=== PATIENT | male | born 1935 | race Caucasian/White ===

== ENCOUNTER 2017-07-28 03:35 | Inpatient (IN) | payer OTHER ==
[2017-07-28 03:56] VITALS: BMI 15.5
--- NOTE | 2017-07-28 04:04 | PDOC ---
History of Present Illness - General Chief Complaint: Laceration Stated Complaint: FALL Time Seen by Provider: 07/28/17 04:03 Past History - Past Medical History Allergies/Adverse Reactions: Allergies Allergy/AdvReac Type Severity Reaction Status Date / Time No Known Allergies Allergy Verified 07/28/17 03:47 Home Medications: Ambulatory Orders Acetaminophen [Tylenol -] 650 mg GT Q6H PRN 07/28/17 Albuterol 0.083% Nebulizer Kita [Ventolin 0.083% Nebulizer Soln -] 1 neb NEB Q6H 07/28/17 Chlorhexidine Gluconate 15 ml MM BID 07/28/17 Docusate Liquid [Colace Liquid -] 300 mg GT HS 07/28/17 Famotidine [Pepcid -] 20 mg GT AM 07/28/17 Hypromellose 0.5% Opth Soln [Artificial Tears] 1 drop OU Q6H 07/28/17 Ipratropium 0.02% Nebulizer [Atrovent] 1 neb NEB Q6H 07/28/17 Levofloxacin 750 mg GT DAILY 07/28/17 Morphine *Immediate Release* [Msir -] 15 mg GT BID 07/28/17 Oxycodone HCl 5 mg GT Q4H PRN 07/28/17 Prednisone 5 mg GT DAILY 07/28/17 Sennosides [Senna] 17.2 mg GT DAILY 07/28/17 Trazodone HCl 100 mg GT HS 07/28/17 - Suicide/Smoking/Psychosocial Hx Smoking History: Unknown if ever smoked Information on smoking cessation initiated: No Hx Alcohol Use: No Drug/Substance Use Hx: No Review of Systems - Review of Systems Able to Perform ROS?: No (pt has a trach collar) Comments:: 07/28/17 04:58 COPD, GERD, bronchitis, insomnia is his PMHx as per [facility] notes *Physical Exam - Vital Signs Last Vital Signs Temp Pulse Resp BP Pulse Ox 69 14 161/78 100 07/28/17 03:47 07/28/17 03:47 07/28/17 03:47 07/28/17 03:47 ED Treatment Course - LABORATORY CBC & Chemistry Diagram: 07/28/17 04:40 07/28/17 04:40 Medical Decision Making - Medical Decision Making 07/28/17 04:55 Patient Name: GALLO HIDALGO THIS IS A PRELIMINARY REPORT FROM [facility] DATE OF SERVICE: 2017-07-28 04:10:28 IMAGES: 161 EXAM: CT HEAD HISTORY: Patient fell COMPARISON: None. FINDINGS: Involutional changes. No hemorrhage. No mass. No visible infarct. Osseous structures are intact 07/28/17 05:02 Patient Name: GALLO HIDALGO THIS IS A PRELIMINARY REPORT FROM [facility] DATE OF SERVICE: 2017-07-28 04:10:28 IMAGES: 363 EXAM: CT CERVICAL SPINE HISTORY: Patient fell COMPARISON: None. FINDINGS: Negative for cervical fracture. 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 There is a mild retrolisthesis of C3 on C4 and slight widening of the anterior disc space. It is possible that this is chronic but I cannot exclude traumatic retrolisthesis with ligamentous injury. If prior scans can be made available, I can determine if this was present previously. No other malalignment. Tracheostomy tube is noted. Extensive emphysematous changes noted at the lung apices. A portion of a pneumothorax is seen at the right lung apex. Soft tissue emphysema is noted at the cervicothoracic junction anteriorly. THIS DOCUMENT HAS BEEN ELECTRONICALLY SIGNED 07/28/17 05:28 Pt has a small pneumothorax on the right side, seen on the neck XR and the CXR portable. This may be due to barotrauma from the vent or it may be from the fall that he sustained or a popped bleb, as he has COPD and emphysema. Pt has bilateral pneumonia. He is on levaquin at the [facility], but his WBC went up from 17 previously to 22 today. I will culture him and then start zosyn. 07/28/17 05:41 Pt has shallow cuts to forehead and face. Nothing to suture or glue. I placed bacitracin ointment on the cuts. 07/28/17 05:52 Pt will be admitted to the hospitalist, as PD is Nehemias; also I spoke to Dr. Phelps and he wants patient admitted to the hospitalist. 07/28/17 06:54 Dr. Cuello aware of the patient. *DC/Admit/Observation/Transfer Diagnosis at time of Disposition: Fall from bed, Retrolisthesis of vertebrae, Head injury, Pneumonia, Sepsis, Pneumothorax, Ventilator barotrauma - Discharge Dispostion Condition at time of disposition: Poor Admit: Yes - Referrals - Patient Instructions - Post Discharge Activity
[2017-07-28 04:56] LABS: BASO % 0.4 % (0-2.0); EOS % 1.7 % (0-4.5); MCHC 32.7 g/dl (32.0-35.9); MEAN CELL VOLUME 94.8 fl (80-96); MEAN PLT VOLUME 7.8 fl (7.5-11.1); NEUT % 79.4 % (42.8-82.8); PLATELET COUNT 569 K/MM3 (134-434); RDW 13.4 % (11.9-15.9)
[2017-07-28] MEDS ORDERED: BACITRACIN 15 GM TUBE TOPICAL OINTMENT TP SCH (05:15)
[2017-07-28 05:17] LABS: INR 1.19 (0.82-1.09); PROTHROMBIN TIME (PATIENT) 13.4 SEC (9.98-11.88)
[2017-07-28 05:25] LABS: ALBUMIN 2.5 g/dl (3.4-5.0); ANION GAP 5 (8-16); BILIRUBIN,TOTAL 0.3 mg/dL (0.2-1.0); CALCIUM 8.7 mg/dL (8.5-10.1); CO2 34 mmol/L (21-32); CREATININE 1.5 mg/dL (0.7-1.3); GLUCOSE,RANDOM 150 mg/dL (74-106); SGOT/AST 18 U/L (15-37); SGPT/ALT 12 U/L (12-78); TOT PROT 7.8 g/dl (6.4-8.2)
[2017-07-28 05:26] LABS: ALK PHOS 136 U/L (45-117)
[2017-07-28] MEDS ORDERED: morphine SULFATE 4 MG/ML VIAL ONE (05:51)
[2017-07-28] MEDS ORDERED: BACITRACIN 0.9 GM PACKET TP SCH (05:54)
[2017-07-28] MEDS ORDERED: BACITRACIN 0.9 GM PACKET ONE (05:58)
[2017-07-28] MEDS ORDERED: morphine CARPU-JECT 2 MG/1 ML DISP.SYRIN IVPUSH ONE (05:58)
[2017-07-28] MEDS ORDERED: PIPERACILLIN/TAZOB 3.375 GM 3.375 GM/50 ML BAG IVPB ONE (05:59)
[2017-07-28] MEDS ORDERED: PIPERACILLIN/TAZOB 3.375 GM 50 ML IVPB ONE (06:00)
[2017-07-28 06:45] LABS: URINE APPEARANCE SLCLOUDY; URINE BILIRUBIN NEGATIVE (NEGATIVE); URINE BLOOD 1+ (NEGATIVE); URINE COLOR YELLOW; URINE GLUCOSE (UA) NEGATIVE (NEGATIVE); URINE KETONE NEGATIVE (NEGATIVE); URINE NITRITE NEGATIVE (NEGATIVE); URINE PROTEIN NEGATIVE (NEGATIVE); URINE UROBILINOGEN NEGATIVE mg/dL (0.2-1.0)
[2017-07-28 06:52] LABS: URINE BACTERIA RARE /hpf (NONE SEEN); URINE MUCUS RARE; URINE RBC 19 /hpf (0-3); URINE WBC 1 /hpf (3-5)
--- NOTE | 2017-07-28 08:20 | PDOC ---
*Physical Exam - Vital Signs Last Vital Signs Temp Pulse Resp BP Pulse Ox 98.3 F 101 H 20 107/77 100 07/28/17 07:18 07/28/17 07:18 07/28/17 07:18 07/28/17 07:18 07/28/17 07:18 ED Treatment Course - LABORATORY CBC & Chemistry Diagram: 07/28/17 04:40 07/28/17 04:40 - ADDITIONAL ORDERS Additional order review: Laboratory Results 07/28/17 07/28/17 07/28/17 06:00 05:26 04:40 PT with INR INR Sodium 137 Potassium 5.0 Chloride 98 Carbon Dioxide 34 H Anion Gap 5 L BUN 53 H Creatinine 1.5 H Creat Clearance w eGFR 44.69 Random Glucose 150 H Lactic Acid 1.8 Calcium 8.7 Total Bilirubin 0.3 AST 18 ALT 12 Alkaline Phosphatase 136 H Total Protein 7.8 Albumin 2.5 L Blood Type O POSITIVE Antibody Screen Negative 07/28/17 04:40 PT with INR 13.40 H INR 1.19 H Sodium Potassium Chloride Carbon Dioxide Anion Gap BUN Creatinine Creat Clearance w eGFR Random Glucose Lactic Acid Calcium Total Bilirubin AST ALT Alkaline Phosphatase Total Protein Albumin Blood Type Antibody Screen 07/28/17 04:40 RBC 3.26 L MCV 94.8 MCHC 32.7 RDW 13.4 MPV 7.8 Neutrophils % 79.4 Lymphocytes % 12.0 Monocytes % 6.5 Eosinophils % 1.7 Basophils % 0.4 - Medications Given in the ED: ED Medications Discontinued Medications Generic Name Dose Route Start Last Admin Trade Name Freq PRN Reason Stop Dose Admin Piperacillin/Tazobactam/Dextrose 50 mls @ 100 mls/hr 07/28/17 06:00 07/28/17 06:56 Zosyn 3.375gm Ivpb (Premix) IVPB 07/28/17 06:29 100 mls/hr ONCE ONE Administration Protocol Morphine Sulfate 2 mg 07/28/17 05:58 07/28/17 06:56 Morphine Injection - IVPUSH 07/28/17 05:59 2 mg ONCE ONE Administration Medical Decision Making - Medical Decision Making 07/28/17 08:18 Received signout on this 82y/o M admitted to ICU for fall, ptx on xray ordered for CT for further evaluation. CT chest confirms 10% R ptx with pneumomediastinum. CT c-spine with no fracture, retrolisthesis ? acute v. chronic, c-collar maintained. official hand-off had not been given, so signout given to Dr. Xavier, accepted for admission by Dr. Finn. Dr. Cuello had already been consulted for ICU admission. HD stable/unchanged. En route to ICU. *DC/Admit/Observation/Transfer Diagnosis at time of Disposition: Fall from bed, Retrolisthesis of vertebrae, Head injury, Pneumonia, Sepsis, Pneumothorax, Ventilator barotrauma - Discharge Dispostion Condition at time of disposition: Poor Admit: Yes - Referrals - Patient Instructions - Post Discharge Activity
--- NOTE | 2017-07-28 09:37 | HP ---
CHIEF COMPLAINT: S/P fall at custodial PCP: Dr. Pate HISTORY OF PRESENT ILLNESS: PATIENT UNABLE TO PROVIDE DUE TO MEDICAL CONDITION. ALL INFORMATION OBTAINED FROM [facility] AND PATIENTS SON. 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 s/p fall. According to the [facility] records patients roommate heard him fall and rang the luke immediately. Patient was found on the floor with facial laceration. Vitals were checked and patient was found tachycardic. Patient was then sent over to the ED for evaluation. In the ED patient was found to have a septic picture of leukocytosis, tachycardia and CXR revealing extensive bilateral interstitial lung disease. Patient's son was contacted who reports that patient was recently sent to [facility] from [facility] () after patient was found to have respiratory failure with tracheostomy placed two weeks ago. Patient's son reports that his respiratory status started deteriorating ever since he was diagnosed with TB in [facility] in 2015, for which he was treated for. Otherwise, patients son denies any history of occupational exposure or history of smoking. ER course was notable for: (1) ZOSYN 3.375 (2) Chest X-ray revealing bilateral pneumonia and interstitial lung disease (3) CT HEAD Recent Travel: NO PAST MEDICAL HISTORY: Interstitial lung disease, TB (2016), COPD/EMPHYSEMA, GERD PAST SURGICAL HISTORY: Bilateral Knee replacement, Cataract surgery, Tracheostomy (2 weeks ago), Peg tube placement (1 week ago) Social History: Worked as a salesman Smoking: Patient's son denies Alcohol: Patient's son denies Drugs: Patient's son denies Family History: Non-contributory Allergies: No Known Allergies Allergy (Verified 07/28/17 03:47) HOME MEDICATIONS: Home Medications Medication Instructions Recorded Acetaminophen [Tylenol -] 650 mg GT Q6H PRN 07/28/17 Albuterol 0.083% Nebulizer Kita 1 neb NEB Q6H 07/28/17 [Ventolin 0.083% Nebulizer Soln -] Chlorhexidine Gluconate 15 ml MM BID 07/28/17 Docusate Liquid [Colace Liquid -] 300 mg GT HS 07/28/17 Famotidine [Pepcid -] 20 mg GT AM 07/28/17 Hypromellose 0.5% Opth Soln 1 drop OU Q6H 07/28/17 [Artificial Tears] Ipratropium 0.02% Nebulizer 1 neb NEB Q6H 07/28/17 [Atrovent] Levofloxacin 750 mg GT DAILY 07/28/17 Morphine *Immediate Release* [Msir 15 mg GT BID 07/28/17 -] Oxycodone HCl 5 mg GT Q4H PRN 07/28/17 Prednisone 5 mg GT DAILY 07/28/17 Sennosides [Senna] 17.2 mg GT DAILY 07/28/17 Trazodone HCl 100 mg GT HS 07/28/17 REVIEW OF SYSTEMS Unable to obtain due to patients medical condition PHYSICAL EXAMINATION Vital Signs - 24 hr 07/28/17 07/28/17 07/28/17 03:47 04:05 05:04 Temperature Pulse Rate 69 Pulse Rate [ Right Radial] Respiratory 14 20 22 Rate Blood Pressure 161/78 Blood Pressure [Left Arm] O2 Sat by Pulse 100 100 Oximetry (%) 07/28/17 07/28/17 06:40 07:18 Temperature 98.3 F Pulse Rate Pulse Rate [ 101 H Right Radial] Respiratory 24 20 Rate Blood Pressure Blood Pressure 107/77 [Left Arm] O2 Sat by Pulse 100 Oximetry (%) GENERAL: Lethargic, non-verbal. HEAD: Normal with no signs of trauma. EYES: Pupils equal, round and reactive to light, sclera anicteric, conjunctiva clear. EARS, NOSE, THROAT: (-) hemotympanum (-) kimbrough's sign, (-) [place] eyes, poor dentition. Moist mucous membranes. NECK: No bruits appreciated with no JVD, or masses. LUNGS: Tracheostomy collar in place and ventilated. Scattered Rhonchi throughout lungs anteriorly HEART: Regular rate and rhythm, normal S1 and S2 with 2/6 systolic murmur in the right sternal border ABDOMEN: Soft, (+) Peg tube placement with no erythema or drainage, nontender, not distended, normoactive bowel sounds, no guarding, no rebound, no masses. MUSCULOSKELETAL: Right forearm, wrist, and dorsal hand ecchymosis. Left forearm echymosis UPPER EXTREMITIES: 2+ pulses, warm, well-perfused. No cyanosis. No clubbing. No peripheral edema. LOWER EXTREMITIES: 2+ pulses, warm, well-perfused. No calf tenderness. No peripheral edema. NEUROLOGICAL: Unable to assess due to patients medical condition. No facial droop Laboratory Results - last 24 hr 07/28/17 07/28/17 07/28/17 04:40 04:40 04:40 WBC 22.0 H RBC 3.26 L Hgb 10.1 L Hct 30.9 L MCV 94.8 MCH 31.0 MCHC 32.7 RDW 13.4 Plt Count 569 H MPV 7.8 Neutrophils % 79.4 Lymphocytes % 12.0 Monocytes % 6.5 Eosinophils % 1.7 Basophils % 0.4 PT with INR 13.40 H INR 1.19 H Sodium 137 Potassium 5.0 Chloride 98 Carbon Dioxide 34 H Anion Gap 5 L BUN 53 H Creatinine 1.5 H Creat Clearance w eGFR 44.69 Random Glucose 150 H Lactic Acid Calcium 8.7 Total Bilirubin 0.3 AST 18 ALT 12 Alkaline Phosphatase 136 H Total Protein 7.8 Albumin 2.5 L Urine Color Urine Appearance Urine pH Ur Specific Lyons Urine Protein Urine Glucose (UA) Urine Ketones Urine Blood Urine Nitrite Urine Bilirubin Urine Urobilinogen Urine WBC (Auto) Urine RBC (Auto) Urine Bacteria Urine Mucus Blood Type Antibody Screen 07/28/17 07/28/17 07/28/17 05:26 06:00 06:30 WBC RBC Hgb Hct MCV MCH MCHC RDW Plt Count MPV Neutrophils % Lymphocytes % Monocytes % Eosinophils % Basophils % PT with INR INR Sodium Potassium Chloride Carbon Dioxide Anion Gap BUN Creatinine Creat Clearance w eGFR Random Glucose Lactic Acid 1.8 Calcium Total Bilirubin AST ALT Alkaline Phosphatase Total Protein Albumin Urine Color Yellow Urine Appearance Slcloudy Urine pH 5.0 Ur Specific Lyons 1.015 Urine Protein Negative Urine Glucose (UA) Negative Urine Ketones Negative Urine Blood 1+ H Urine Nitrite Negative Urine Bilirubin Negative Urine Urobilinogen Negative Urine WBC (Auto) 1 Urine RBC (Auto) 19 Urine Bacteria Rare Urine Mucus Rare Blood Type O POSITIVE Antibody Screen Negative IMAGES Chest X-Ray (07/28/17): There are no prior studies for comparison. There appear to be diffuse chronic and acute lung changes with bullous findings, interstitial and alveolar changes, prominent heart, sclerotic knob, tracheostomy tube and small right pneumothorax. A gross rib fracture is not seen. Cervical CT (07/28/17): No acute fracture, compression deformity is seen. Normal relationship of odontoid to anterior arch of C1. Intact odontoid. The predental space is not widened. Developmental fusion of C2, C3. Normal symmetrical articulation of atlantoaxial and occipito atlantal joints. C3-C4. Loss of disc space height posteriorly. Moderate right facet joint arthropathy. Approximately 2 mm retrolisthesis of C3 on C4. Osteoarthritis of the right uncovertebral joint. Right neural foraminal narrowing. C4-C5. Moderate facet joint arthropathy. Osteoarthritis of uncovertebral joints. Bilateral neural foraminaL narrowing. C5-C6. Moderate facet joint arthropathy. Osteoarthritis of uncovertebral joints. Bilateral neural foraminaL narrowing. Normal height of vertebral bodies. The intraspinal contents cannot be adequately evaluated due to the beam hardening artifacts. The airways are patent. No evidence of prevertebral soft tissue swelling. Tracheostomy tube is noted. Pneumomediastinum. Right pneumothorax. Cystic changes are noted in the lungs apices. Soft tissues emphysematous changes are noted. Impression. No acute bony abnormalities are seen Pneumomediastinum. Right pneumothorax. Head CT (07/28/17): No evidence of acute intracranial hemorrhage, edema, midline shift, mass effect, or skull fracture. No CT evidence of acute territorial ischemic changes. ASSESSMENT/PLAN: Patient is an 82 year old male from [facility] who sent over s/p fall and was found Sepsis with Chest X-Ray revealing Pneumothorax/interstitial lung disease. Patient admitted to ICU for further monitoring and management. S/P Fall w/ Small Right Pneumothorax -Possible secondary to emphysema/bullous -Patient currently is ventilated on a trach -Head CT negative -Transferred to ICU -Pneumothorax is small and no medical management necessary at this point -Bacitracin for Lacerations. No stitches required -Neuro Checks Q2H Sepsis Secondary to Possible Ventilated Associated Pneumonia -Chest X-Ray reveals extensive bilateral interstitial lung disease, WBC 22 with previous WBC from [place] of 17 four days ago despite antibiotic use, Tachycardia > 90. 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 Since his diagnosis patient developed respiratory failure which deteriorated in the last month at [facility] in the city. Patient had tracheostomy placed two weeks ago at [facility]. -Continue DuoNeb Q6H -Continue Prednisone 5mg daily -Continue to monitor O2 saturation and maintain >90% -HIV testing ordered due to bilateral interstitial infiltrates seen in chest x- ray CHANTE on Possible CKD -Last creatinine 5 days ago 1.2 and today 1.5 -Likely pre-renal -Urine Electrolytes ordered -Renal/Kidney U/S ordered -IV NS @75mls/hr -Avoid Nephrotoxic medications -B12 and Folate ordered Anemia of Chronic Disease? -Hemoglobin 10.1. Last week 9.4 -Iron work up ordered with Ferritin, TIBC, IRON, Transferrin -Continue to monitor CBC Thrombocytosis likely Secondary to Sepsis -Platelets of 569. Last week 512 -Possible hemoconcentration -Will give IV fluids -Monitor CBC Chronic Pain of Unknown Etiology -Patient currently on Morphine 15mg once -Continue Tylenol 325mg Q4H PRN History of Insomnia and Depression -Continue home medication Trazodone 100mg daily History of Opioid Induced Constipation -Continue home medication Colace 300mg daily -Continue Home medication Senna 2 tabs daily GERD -Continue Ranitidine 150mg daily F/E/N -IV Normal Saline @75mls/hr -Electrolytes wnl -NPO and will introduce tube feeds Prophylaxis -High risk. Heparin 5000 units Q8H for DVT -Ranitidine 150mg daily for GI -Deconditioning: PT to avoid Disposition -Full code -Will require IV ABX and ICU inpatient Visit type - Emergency Visit Emergency Visit: Yes ED Registration Date: 07/28/17 Care time: The patient presented to the Emergency Department on the above date and was hospitalized for further evaluation of their emergent condition. - New Patient This patient is new to me today: Yes Date on this admission: 07/28/17 - Critical Care Critical Care patient: Yes Total Critical Care Time (in minutes): 45 Critical Care Statement: The care of this patient involved high complexity decision making to prevent further life threatening deterioration of the patient 's condition and/or to evaluate & treat vital organ system(s) failure or risk of failure.
[2017-07-28] MEDS ORDERED: morphine SULFATE IMMEDIATE RELEASE 30 MG TAB PO SCH (10:00)
[2017-07-28] MEDS ORDERED: VANCOMYCIN 750 MG in DEXTROSE 5%-WATER - 250 ML IVPB ONE ×2 (10:00→13:00)
[2017-07-28] MEDS ORDERED: RANITIDINE HCL 150 MG/10 ML UNIT-DOSE GT SCH (10:00)
[2017-07-28] MEDS ORDERED: RANITIDINE HCL 150 MG TABLET (FP) PO SCH (10:00)
[2017-07-28] MEDS ORDERED: MUPIROCIN 2% TOPICAL OINTMENT FOR DECOLONIZATION NS SCH ×2 (10:00→22:00)
[2017-07-28] MEDS ORDERED: VANCOMYCIN 750 MG in DEXTROSE 5%-WATER - 250 ML IVPB SCH (10:00)
[2017-07-28] MEDS ORDERED: SENNOSIDES 8.6MG TABLET (FP) PO SCH (10:00)
[2017-07-28] MEDS ORDERED: predniSONE 5 MG TABLET (UD) GT SCH (10:00)
[2017-07-28] MEDS: ALBUTEROL SO4 2.5/IPRATROPIUM 0.5 INH SOL 3 ML VIAL.NEB. NEB SCH ×3 (10:25→18:42)
[2017-07-28] MEDS ORDERED: PNEUMOC 13-VAL CONJ-DIP CRM/PF 0.5 ML DISP.SYRIN IM ONE (10:48)
[2017-07-28 11:21] LABS: MAGNESIUM 2.4 mg/dL (1.8-2.4); PHOSPHOROUS 3.6 mg/dL (2.5-4.9)
[2017-07-28] MEDS ORDERED: PT OWN MED DRAWER 7, Y5N ONE ×3 (12:45→14:38)
[2017-07-28] MEDS ORDERED: SODIUM CHLORIDE 1,000 ML IV SCH (12:45)
--- NOTE | 2017-07-28 12:49 | EKG ---
Test Reason : Blood Pressure : / mmHG Vent. Rate : 111 BPM Atrial Rate : 111 BPM P-R Int : 140 ms QRS Dur : 076 ms QT Int : 318 ms P-R-T Axes : 030 012 071 degrees QTc Int : 432 ms SINUS TACHYCARDIA OTHERWISE NORMAL ECG NO PREVIOUS ECGS AVAILABLE Confirmed by DILMA TAMAYO MD ([id number]) on 07/28/2017 12:49:06 PM Referred By: Confirmed By:DILMA TAMAYO MD
[2017-07-28 12:53] LABS: HIV 1 & 2 AB NEGATIVE; HIV 1 AGp24 NEGATIVE
--- NOTE | 2017-07-28 12:56 | PN ---
Teaching Attending Note Name of Resident: Justine Xavier ATTENDING PHYSICIAN STATEMENT I saw and evaluated the patient. I reviewed the resident's note and discussed the case with the resident. I agree with the resident's findings and plan as documented. SUBJECTIVE: CC: fall from bed HPI: limited. pt was brought from [place] after an unwitnessed fall from bed in [place]. pt was being treated for PNA in [place], most recent labs 4 days ago showed WC of 18K , and pt was started on levaquin 750 mg. also his mental status had changed recently in past few days , lethargic now rather than awake and responds to spanich speaking people. of note , he was dc from [facility] on 07/23/17 after a prolonged admission for acute on chronic resp failure requiring a Trach placement . In ER: he was found to have signs of sepsis , with pneumomediastinum and a small R sided Pneumothorax. he was admitted to ICU OBJECTIVE: Lethargic, open his eyes in response to sounds and exam. , foam in back of mouth , trach in, a rigid collar on neck. no JVD . 2 small laceration on R anterior forehead and on uppr nose . symmetric face , round equal pupils, minimally reactive to light . CV: RRR, no MRG, No JVD Lungs : b/l course rales . air movement heard in all lung altman Abd: soft, grimaces with palpating RUQ. Nl BS , ND . Ext: bruises over upper extremities. R knee small hematoma een and felt . no edema on Legs or arms Neuro : very limited. lehtargic , opens eyes. symmetric face , round equal pupils, minimally reactive to light . no muscle rigidity or cogwheeling. reflexes : 1+ knee jerk b/l . 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 He was found to be septic with a small pneumothorax and pneumo-mediastinum 1- Sepsis: source in unclear. due to all the chronic fibrotic changes in lungs , it is hard to tell if there is an infiltrate or not. UA does not indicate an infection. there is no decub ulcers or any skin infections . he has mild tenderness in RUQ , but NL ALT , AST , and Bili. biliary source is unlikely - covering a pneumonia is reasonable in the absence of other clear sources. given being on abx recently , will cover resistant organisms . - given vanco and zosyn in ER. ID consult placed. -give IVF - follow leukocytosis - check c diff if he stools - Urine legionella and micoplasma . - check resp viral panel - although a biliary source is less likely , but due to tendernessin QUR will get US . might need to get CT of abd if source is still a question 2- CHANTE: likely prerenal azotemia in setting of sepsis. renal US nl . - IVF - follow urine electrolytes 3- AMS: slightly changed form his base line. likely due to sepsis , volume depletion, and acute illness. although neuro exam was limites , it is non focal , and CT of head showed no bleed. Expect improvement with treating his acute problems 4- Small R pneumothorax, and pneumomediastinum: likely due to severe bolus disease and ruptured bulla spontaneously . - will follow cxray this evening and in Am - if pneumo gets bigger , then Chest tube might be indicated. - pulm eval to follow 5- normocytic anemia: - check iron studies , B12, folate 6- Thrombocytosis : likely reactive . will ofllow 7- chronic resp failure : - cont vent - cont Nebs - cont chronci steroids 8- s/p fall , NO fx . R knee hematoma and facial laceration : monitor 9- DVT PX Critical Care Total Critical Care Time (in minutes): 50 Critical Care Statement: The care of this patient involved high complexity decision making to prevent further life threatening deterioration of the patient 's condition and/or to evaluate & treat vital organ system(s) failure or risk of failure.
--- NOTE | 2017-07-28 12:59 | PN ---
Teaching Attending Note Name of Resident: Pito Keating ATTENDING PHYSICIAN STATEMENT I saw and evaluated the patient. I reviewed the resident's note and discussed the case with the resident. I agree with the resident's findings and plan as documented. SUBJECTIVE: Pt seen and examined in the ICU. Vented on volume assist control in cervical collar. Denies shortness of breath. Some mild chest pain. OBJECTIVE: Last Vital Signs Temp Pulse Resp BP Pulse Ox 98.3 F 93 H 17 108/58 99 07/28/17 09:02 07/28/17 10:55 07/28/17 11:55 07/28/17 10:55 07/28/17 10:44 Intake & Output 07/25/17 07/26/17 07/27/17 07/28/17 23:59 23:59 23:59 23:59 Weight 105 lb 8 oz Gen: vented, awake Heart: RRR Lung: bilateral rhonchi Abd: soft, nontender Ext: no edema CBC, BMP 07/28/17 04:40 07/28/17 04:40 Active Medications Albuterol/Ipratropium (Duoneb -) 1 amp NEB QIDR [facility] Last Admin: 07/28/17 11:56 Dose: 1 amp Bacitracin (Bacitracin -) 0.9 gm TP DAILY [facility] Chlorhexidine Gluconate (Hibiclens For Decolonization -) 1 applic TP HS [facility] Docusate Sodium (Colace Liquid -) 300 mg GT HS [facility] Heparin Sodium (Porcine) (Heparin -) 5,000 unit SQ TID [facility] Vancomycin HCl 750 mg/ (Dextrose) 250 mls @ 125 mls/hr IVPB Q24H [facility] Piperacillin/Tazobactam/Dextrose (Zosyn 3.375gm Ivpb (Premix)) 50 mls @ 100 mls /hr IVPB Q6H-IV [facility] Sodium Chloride (Normal Saline -) 1,000 mls @ 75 mls/hr IV ASDIR [facility] Vancomycin HCl 750 mg/ (Dextrose) 250 mls @ 125 mls/hr IVPB ONCE ONE Stop: 07/28/17 14:59 Morphine Sulfate (Msir -) 15 mg PO DAILY [facility] Mupirocin (Bactroban Ointment (For Decolonization) -) 1 applic NS BID [facility] Prednisone (Deltasone -) 5 mg GT DAILY [facility] Ranitidine HCl (Zantac Oral Solution -) 150 mg GT DAILY [facility] Senna (Senna -) 2 tab PO DAILY [facility] Trazodone HCl (Desyrel -) 100 mg PO HS [facility] ASSESSMENT AND PLAN: Acute on Chronic Respiratory Failure Loculated Pneumothorax Pneumomediastinum Interstitial Lung Disease r/o Pnuemonia Acute Kidney Injury - pain control - keep PEEP 0 - repeat CXR - empiric antibiotics - f/u cultures - suspect majority of findings on CT chest are chronic - inhaled bronchodilators - O2 to keep SpO2 >90% - IVF - monitor urine output, creatinine - enteral feeds - spontaneous breathing trials as tolerated - DVT/GI prophylaxis critical care time spent in reviewing chart, evaluating patient and formulating plan 35 min
--- NOTE | 2017-07-28 13:23 | PN ---
Progress Note (short form) - Note Progress Note: ID consult dictated imp/reccd 82 year old man with chronic repiratory failure, recently admitted to the [facility] from [facility] with trach and PEG-on vent admitted s/p fall he was found lying face down on the ground he is alert he has some abrasions on his face we are asked to see him for possible pneumonia he has ILD making it difficult to interpret his films of note oxygen demand is low he has a leukocytosis but is on steroids s/p fall r/o pneumonia chronic resp failure ILD f/u cultures, labs continue zosyn xray or ct report from [facility] if possible further plans per pulmonary and primary service Problem List - Problems (1) Fall from bed Code(s): W06.XXXA - FALL FROM BED, INITIAL ENCOUNTER (2) Pneumonia Code(s): J18.9 - PNEUMONIA, UNSPECIFIED ORGANISM (3) Chronic respiratory failure Code(s): J96.10 - CHRONIC RESPIRATORY FAILURE, UNSP W HYPOXIA OR HYPERCAPNIA
[2017-07-28] MEDS ORDERED: HEPARIN NA (PORCINE) 5,000 UNITS/ML 1ML VIAL SQ SCH (14:00)
--- NOTE | 2017-07-28 14:47 | CONSULT ---
Consultation: REQUESTING PROVIDER: Dr. Finn CONSULT REQUEST: We have been asked to medically evaluate this patient for fall and interstitial lung disease. HISTORY OF PRESENT ILLNESS: The patient is an 82M with a PMH of COPD and emphysema who is s/p tracheostomy and ventilation, ILD s/p TB in 2016, and GERD who was brought to the ER via EMS after sustaining a fall at [facility]. According to the records at the [facility], the patient's roommate heard him fall and rang the luke. The patient was found on the floor and had sustained a facial laceration. The patient was also found to be tachycardic at the time. In the ED, he was found to have a leukocytosis with tachycardia and his CXR showed b/l ILD. The patient's family states that the patient's respiratory status has continually worsened after being diagnosed with TB in 2016. He has been treated for this TB. REVIEW OF SYSTEMS: Unable to assess 2/2 to patient's condition. PHYSICAL EXAMINATION Vital Signs - 24 hr 07/28/17 07/28/17 07/28/17 03:47 04:05 05:04 Temperature Pulse Rate 69 Pulse Rate [ Right Radial] Respiratory 14 20 22 Rate Blood Pressure 161/78 Blood Pressure [Left Arm] O2 Sat by Pulse 100 100 Oximetry (%) 07/28/17 07/28/17 07/28/17 06:40 07:18 09:02 Temperature 98.3 F 98.3 F Pulse Rate 96 H Pulse Rate [ 101 H Right Radial] Respiratory 24 20 20 Rate Blood Pressure 100/58 Blood Pressure 107/77 [Left Arm] O2 Sat by Pulse 100 100 Oximetry (%) 07/28/17 07/28/17 07/28/17 09:25 10:00 10:44 Temperature Pulse Rate 89 Pulse Rate [ Right Radial] Respiratory 19 19 Rate Blood Pressure Blood Pressure [Left Arm] O2 Sat by Pulse 99 99 99 Oximetry (%) 07/28/17 07/28/17 07/28/17 10:55 11:55 13:32 Temperature Pulse Rate 93 H Pulse Rate [ Right Radial] Respiratory 17 20 Rate Blood Pressure 108/58 Blood Pressure [Left Arm] O2 Sat by Pulse Oximetry (%) GENERAL: Awake, alert, and fully oriented, in no acute distress. HEAD: Normal with no signs of trauma. In c-collar. EYES: Pupils equal, round and reactive to light, extraocular movements intact, sclera anicteric, conjunctiva clear. No lid lag. NECK: Limited ROM 2/2 c-collar. LUNGS: Breath sounds equal, clear to auscultation bilaterally. No wheezes, and no crackles. No accessory muscle use. HEART: Regular rate and rhythm, normal S1 and S2 without murmur, rub or gallop. ABDOMEN: Soft, nontender, not distended, normoactive bowel sounds, no guarding, no rebound, no masses. No hepatomegaly or splenomegaly. MUSCULOSKELETAL: Normal range of motion at all joints. No bony deformities or tenderness. No CVA tenderness. UPPER EXTREMITIES: 2+ pulses, warm, well-perfused. No cyanosis. No clubbing. Cap refill <2 seconds. No peripheral edema. LOWER EXTREMITIES: 2+ pulses, warm, well-perfused. No calf tenderness. No peripheral edema. NEUROLOGICAL: Cranial nerves II-XII intact. Normal speech. Normal gait. PSYCHIATRIC: Cooperative. Good eye contact. Appropriate mood and affect. SKIN: Warm, dry, normal turgor, no rashes or lesions noted. Laboratory Results - last 24 hr 07/28/17 07/28/17 07/28/17 04:40 04:40 04:40 WBC 22.0 H RBC 3.26 L Hgb 10.1 L Hct 30.9 L MCV 94.8 MCH 31.0 MCHC 32.7 RDW 13.4 Plt Count 569 H MPV 7.8 Neutrophils % 79.4 Lymphocytes % 12.0 Monocytes % 6.5 Eosinophils % 1.7 Basophils % 0.4 PT with INR 13.40 H INR 1.19 H Sodium 137 Potassium 5.0 Chloride 98 Carbon Dioxide 34 H Anion Gap 5 L BUN 53 H Creatinine 1.5 H Creat Clearance w eGFR 44.69 Random Glucose 150 H Hemoglobin A1c % Lactic Acid Calcium 8.7 Phosphorus Magnesium Ferritin Total Bilirubin 0.3 AST 18 ALT 12 Alkaline Phosphatase 136 H Total Protein 7.8 Albumin 2.5 L Triglycerides Cholesterol Total LDL Cholesterol HDL Cholesterol Urine Color Urine Appearance Urine pH Ur Specific [place] Urine Protein Urine Glucose (UA) Urine Ketones Urine Blood Urine Nitrite Urine Bilirubin Urine Urobilinogen Urine WBC (Auto) Urine RBC (Auto) Urine Bacteria Urine Mucus HIV 1&2 Antibody Screen HIV P24 Antigen Blood Type Antibody Screen 07/28/17 07/28/1717 05:26 06:00 06:30 WBC RBC Hgb Hct MCV MCH MCHC RDW Plt Count MPV Neutrophils % Lymphocytes % Monocytes % Eosinophils % Basophils % PT with INR INR Sodium Potassium Chloride Carbon Dioxide Anion Gap BUN Creatinine Creat Clearance w eGFR Random Glucose Hemoglobin A1c % Lactic Acid 1.8 Calcium Phosphorus Magnesium Ferritin Total Bilirubin AST ALT Alkaline Phosphatase Total Protein Albumin Triglycerides Cholesterol Total LDL Cholesterol HDL Cholesterol Urine Color Yellow Urine Appearance Slcloudy Urine pH 5.0 Ur Specific [place] 1.015 Urine Protein Negative Urine Glucose (UA) Negative Urine Ketones Negative Urine Blood 1+ H Urine Nitrite Negative Urine Bilirubin Negative Urine Urobilinogen Negative Urine WBC (Auto) 1 Urine RBC (Auto) 19 Urine Bacteria Rare Urine Mucus Rare HIV 1&2 Antibody Screen HIV P24 Antigen Blood Type O POSITIVE Antibody Screen Negative 07/28/17 07/28/17 07/28/17 10:30 10:30 10:30 WBC RBC Hgb Hct MCV MCH MCHC RDW Plt Count MPV Neutrophils % Lymphocytes % Monocytes % Eosinophils % Basophils % PT with INR INR Sodium Potassium Chloride Carbon Dioxide Anion Gap BUN Creatinine Creat Clearance w eGFR Random Glucose Hemoglobin A1c % 4.6 L Lactic Acid Calcium Phosphorus 3.6 Magnesium 2.4 Ferritin Total Bilirubin AST ALT Alkaline Phosphatase Total Protein Albumin Triglycerides 79 Cholesterol 138 Total LDL Cholesterol 74 HDL Cholesterol 58 Urine Color Urine Appearance Urine pH Ur Specific [place] Urine Protein Urine Glucose (UA) Urine Ketones Urine Blood Urine Nitrite Urine Bilirubin Urine Urobilinogen Urine WBC (Auto) Urine RBC (Auto) Urine Bacteria Urine Mucus HIV 1&2 Antibody Screen Negative HIV P24 Antigen Negative Blood Type Antibody Screen 07/28/17 10:30 WBC RBC Hgb Hct MCV MCH MCHC RDW Plt Count MPV Neutrophils % Lymphocytes % Monocytes % Eosinophils % Basophils % PT with INR INR Sodium Potassium Chloride Carbon Dioxide Anion Gap BUN Creatinine Creat Clearance w eGFR Random Glucose Hemoglobin A1c % Lactic Acid Calcium Phosphorus Magnesium Ferritin 702.627 H Total Bilirubin AST ALT Alkaline Phosphatase Total Protein Albumin Triglycerides Cholesterol Total LDL Cholesterol HDL Cholesterol Urine Color Urine Appearance Urine pH Ur Specific [place] Urine Protein Urine Glucose (UA) Urine Ketones Urine Blood Urine Nitrite Urine Bilirubin Urine Urobilinogen Urine WBC (Auto) Urine RBC (Auto) Urine Bacteria Urine Mucus HIV 1&2 Antibody Screen HIV P24 Antigen Blood Type Antibody Screen Active Medications Generic Name Dose Route Start Last Admin Trade Name Freq PRN Reason Stop Dose Admin Albuterol/Ipratropium 1 amp 07/28/17 09:45 07/28/17 11:56 Duoneb - NEB 1 amp QIDR [facility] Administration Bacitracin 0.9 gm 07/28/17 05:54 Bacitracin - TP DAILY [facility] Chlorhexidine Gluconate 1 applic 07/28/17 22:00 Hibiclens For Decolonization - TP HS [facility] Docusate Sodium 300 mg 07/28/17 22:00 Colace Liquid - GT HS [facility] Heparin Sodium (Porcine) 5,000 unit 07/28/17 14:00 Heparin - SQ TID [facility] Sodium Chloride 1,000 mls @ 75 mls/hr 07/28/17 12:45 07/28/17 13:10 Normal Saline - IV 75 mls/hr ASDIR [facility] Administration Vancomycin HCl 750 mg/ 250 mls @ 125 mls/hr 07/28/17 13:00 Dextrose IVPB 07/28/17 14:59 ONCE ONE Morphine Sulfate 15 mg 07/29/17 10:00 Msir - PO DAILY [facility] Mupirocin 1 applic 07/28/17 10:00 07/28/17 13:00 Bactroban Ointment (For Decolonization) - NS 1 applic BID [facility] Administration Piperacillin Sod/Tazobactam Sod 3.375 gm 07/28/17 15:00 Zosyn 3.375gm Ivpb (Pre-Docked) IVPB Q8H-IV [facility] Protocol Prednisone 5 mg 07/28/17 10:00 07/28/17 12:59 Deltasone - GT 5 mg DAILY [facility] Administration Ranitidine HCl 150 mg 07/28/17 10:00 07/28/17 12:59 Zantac Oral Solution - GT 150 mg DAILY [facility] Administration Senna 2 tab 07/28/17 10:00 07/28/17 12:59 Senna - PO 2 tab DAILY [facility] Administration Trazodone HCl 100 mg 07/28/17 22:00 Desyrel - PO HS [facility] ASSESSMENT/PLAN: The patient is an 82 M with a PMH COPD, emphysema, ILD s/p TB 2015 who is trached and vented who presented s/p fall. Neuro: - Head CT: negative - Cervical CT: negative CV: Pneumomediastinum - Will require workup and/or gastrograffin study to r/u esophageal perforation Pulm: R pneumothorax - Questionable if it's 2/2 to fall or ILD/COD/emphysema ILD/COPD - Duoneb q6H - Prednisone (chronic) 5 mg daily Renal: CHANTE - Cr 1.5, increased from 1.2 5 days ago - Pending renal U/S : - None GI: GERD - Ranitidine 150mg qD prophylaxis ID: - WBC 22.0 - Zosyn 3.375 on board Hem/Onc: Thrombocytosis - Platelet count 569 from 512 - Questionable if it is 2/2 to volume depletion Endocrine: - None MSK: - None PPX: - Heparin ggt FEN (Fluids, electrolytes, nutrition): - NS @ 75mL/hour Dispo: - Continue to monitor in ICU - May be stable for med/surg tomorrow - Son is requesting transfer to [facility] because all of the patient's physicians; night team is aware Thank you for this consultative opportunity. Visit type - Emergency Visit Emergency Visit: Yes ED Registration Date: 07/28/17 Care time: The patient presented to the Emergency Department on the above date and was hospitalized for further evaluation of their emergent condition. - New Patient This patient is new to me today: Yes Date on this admission: 07/28/17 - Critical Care Critical Care patient: Yes Total Critical Care Time (in minutes): 50 Critical Care Statement: The care of this patient involved high complexity decision making to prevent further life threatening deterioration of the patient 's condition and/or to evaluate & treat vital organ system(s) failure or risk of failure.
[2017-07-28] MEDS ORDERED: PIPERACILLIN/TAZOB 3.375 GM/50 ML PRE-DOCKED IVPB SCH (15:00)
[2017-07-28] MEDS ORDERED: PIPERACILLIN/TAZOB 3.375 GM 50 ML IVPB SCH (15:00)
--- NOTE | 2017-07-28 15:46 | CONS ---
INFECTIOUS DISEASE CONSULTATION DATE OF CONSULTATION: 07/28/2017 REQUESTING PHYSICIAN: The hospitalist service. HISTORY OF PRESENT ILLNESS: This is an 82-year-old man who is admitted from the senior living. He was admitted there 5 days ago from [facility]. He was sent to the ER after his roommate heard him fall. He called immediately. He was found lying face down on the floor with facial lacerations. He was brought to the ER for evaluation. In the ER, he was stabilized, and he was noted to have an elevated white count. He had been on Levaquin day 3 at the senior living for possible pneumonia, and he was admitted for further evaluation for possible pneumonia. He is resting quite comfortably at this time. Per the family, he was recently admitted to [facility] from the senior living on July 23. At [facility], he had respiratory failure and had a tracheostomy placed. He apparently has a diagnosis of interstitial lung disease. He has a history of tuberculosis in [facility] in 2016; for which, he was treated. I am asked to see him for further recommendations. PAST MEDICAL HISTORY: Notable for COPD, emphysema, interstitial lung disease, tuberculosis in 2016. He has a history of GERD. SURGICAL HISTORY: Notable for bilateral knee replacement, cataract surgery, tracheostomy, and PEG tube. FAMILY HISTORY: Not available. SOCIAL HISTORY: He worked as a salesman. No history of any substance use and he is originally from [facility]. ALLERGIES: He has no known drug allergies. MEDICATIONS AT THE [facility]: Included nebulizer, Pepcid, Atrovent, levofloxacin day 3, MSIR, oxycodone, prednisone, senna, and trazodone. REVIEW OF SYSTEMS: Not available. The nurse reports he has no respiratory secretions. PHYSICAL EXAMINATION: Vital Signs: He is afebrile; temperature is 98.3. Pulse is 93, blood pressure 108/58, respiratory rate 17. He is saturating 99% with a FiO2 of 35%. General: He is a thin man in no acute distress. HEENT: He is normocephalic. His eyes are anicteric. He has several facial abrasions. Neck: He is wearing a cervical collar. Lungs: Crackles at the bases. Heart: Regular rate and rhythm. Abdomen: Soft. He has a G-tube site which is clean. Extremities: without edema. DIAGNOSTIC DATA: White count is 22,000, hemoglobin 10.1, platelets of 569. BUN is 53 and creatinine 1.5. Urinalysis has 1 white cell. He is HIV negative, and cultures are pending. He had multiple imagings done including a renal sonogram that was negative, a chest CT that reveals a small pneumothorax and air surrounding the mediastinum. He has extensive fibrotic changes in both his lungs. Head CT shows no evidence of any bleed. In summary, this is an 82-year-old man status post fall, rule out pneumonia, chronic respiratory failure, interstitial lung disease. Would follow up his cultures and laboratory data. Continue Zosyn. X-ray of CT report from [facility] if possible. Further plans per Pulmonary and primary service. Case was discussed with Dr. Hernandez. MORENA GONZALEZ M.D. [id number]
--- NOTE | 2017-07-28 16:46 | PN ---
Progress Note (short form) - Note Progress Note: Spoke to [facility] CCU attending Dr Boyle, who took care of patient last month for acute on chronic hypercapneic resp failure. Patient does not meet CCU criteria. There are currently no Med surge vent beds available and there are already several patients on the waiting list. On d/c from [facility], patients WBC was 14, craet was 1.5, Hgb was 9. Sputum grew Ecoli most sensitive to ertapenem and meropenem. At [facility] patient was initially treated with zosyn but then switched to meropenem.
[2017-07-28 18:25] LABS: URINE LEUK ESTERASE Negative (NEGATIVE)
[2017-07-28] MEDS: SODIUM CHLORIDE 1,000 ML IV SCH (20:32)
--- NOTE | 2017-07-28 21:21 | CONSULT ---
Consult - text type - Consultation Consultation Note: NEUROLOGY CONSULTATION is greatly appreciated: This 82 yo man with h/o COPD has had progressive decline in his pulmonary status since bigg TB in [facility] in 2016. Very recently s/p trache (2 weeks WHEEL SETTER) and PEG (1 week WHEEL SETTER) after a prolonged hospitalization at [facility]. Now on albuterol, famotidine, MS, oxycodone, prednisone and trazadone. Few days on levaquin for increasing WBC (19K and climbing). Admitted from [facility] yesterday after fall from bed with facial trauma. CT of head (reviewed): Moderate, diffuse, atrophy without traumatic lesions. CT of C-spine (reviewed): Moderate, diffuse, spondylytic disease without fracture or dislocation. EXAM: Thin. Facial abrasions. Right knee ecchymosis. Trache. PEG. In [place] collar. NEURO: Shallow volitional respirations. Lethargic or sleeping but awakens to name. Follows commands in Slovenian. + Glabella, snout, suck, and grasps. CN II-XII: Normal Motor: Normal grasps. Normal ankle dorsiflexion. Normal reflexes. Sensory: Withdraws all 4's to pinch. IMP: Non-focal exam Probable B/L cerebral dysfunction (at least moderate, as judged by the plethora of frontal release findings). No evidence for traumatic injury to the head or neck. SUGGEST: Continue supportive care and aggressive nutritional support Continue eval for infection and Rx. Could D/C [place] Collar and try a soft collar for a few days (if tolerated with the trache). Ask family about recent cognitive status before tracheostomy. Check B12, TSH, RPR. Mobilize Pt OOB to chair to avoid progression of weakness Check volitional peak inspiratory and expiratory forces Thank you very much, Leonardo Tsang MD
[2017-07-28] MEDS ORDERED: DOCUSATE NA 100 MG/10 ML UNIT-DOSE CUPS GT SCH (22:00)
[2017-07-28] MEDS ORDERED: CHLORHEXIDINE GLUCONATE 4% CLEANSER FOR DECOLONIZATION TP SCH ×2 (22:00)
[2017-07-28] MEDS ORDERED: traZODone HCL 100 MG TABLET (FP) PO SCH (22:00)
--- NOTE | 2017-07-28 22:36 | CONSULT ---
Consult Consult Specialty:: PULM/CCM - Alcohol/Substance Use Hx Alcohol Use: No - Smoking History Smoking history: Unknown if ever smoked Have you smoked in the past 12 months: No Home Medications - Allergies Allergies/Adverse Reactions: Allergies Allergy/AdvReac Type Severity Reaction Status Date / Time No Known Allergies Allergy Verified 07/28/17 03:47 - Home Medications Home Medications: Ambulatory Orders Acetaminophen [Tylenol -] 650 mg GT Q6H PRN 07/28/17 Albuterol 0.083% Nebulizer Kita [Ventolin 0.083% Nebulizer Soln -] 1 neb NEB Q6H 07/28/17 Chlorhexidine Gluconate 15 ml MM BID 07/28/17 Docusate Liquid [Colace Liquid -] 300 mg GT HS 07/28/17 Famotidine [Pepcid -] 20 mg GT AM 07/28/17 Hypromellose 0.5% Opth Soln [Artificial Tears] 1 drop OU Q6H 07/28/17 Ipratropium 0.02% Nebulizer [Atrovent] 1 neb NEB Q6H 07/28/17 Levofloxacin 750 mg GT DAILY 07/28/17 Morphine *Immediate Release* [Msir -] 15 mg GT BID 07/28/17 Oxycodone HCl 5 mg GT Q4H PRN 07/28/17 Prednisone 5 mg GT DAILY 07/28/17 Sennosides [Senna] 17.2 mg GT DAILY 07/28/17 Trazodone HCl 100 mg GT HS 07/28/17 Physical Exam Vital Signs: Vital Signs Temperature 97.6 F 07/28/17 20:00 Pulse Rate 70 07/28/17 20:00 Respiratory Rate 29 H 07/28/17 22:28 Blood Pressure 98/51 07/28/17 20:00 O2 Sat by Pulse Oximetry (%) 98 07/28/17 18:00 Labs: CBC, BMP 07/28/17 04:40 07/28/17 04:40
[2017-07-28] MEDS ORDERED: traZODone HCL 50 MG TABLET (FP) ONE (23:03)
[2017-07-28] MEDS: DOCUSATE NA 100 MG/10 ML UNIT-DOSE CUPS GT SCH (23:11)
[2017-07-28] MEDS: traZODone HCL 100 MG TABLET (FP) PO SCH (23:11)
[2017-07-28] MEDS: HEPARIN NA (PORCINE) 5,000 UNITS/ML 1ML VIAL SQ SCH (23:12)
[2017-07-29] MEDS ORDERED: PT OWN MED DRAWER 7, Y5N ONE ×3 (00:12→19:55)
[2017-07-29] MEDS ORDERED: PIPERACILLIN/TAZOB 3.375 GM/50 ML PRE-DOCKED IVPB SCH (02:00)
[2017-07-29] MEDS: PIPERACILLIN/TAZOB 3.375 GM 3.375 GM in DEXTROSE 5%-WATER - 50 ML IVPB SCH ×3 (02:25→20:10)
[2017-07-29 06:06] LABS: SERUM IRON 20 ug/dL (38-169); TOTAL IRON BINDING CAPACITY 204 ug/dL (250-450); UIBC 184 ug/dL (111-343)
[2017-07-29] MEDS: ALBUTEROL SO4 2.5/IPRATROPIUM 0.5 INH SOL 3 ML VIAL.NEB. NEB SCH ×5 (06:38→23:18)
[2017-07-29] MEDS ORDERED: PATIENT'S OWN MEDICATION (NON-FORMULARY) (Famotidine [Pepcid -] 20 MG) GT SCH (07:00)
[2017-07-29] MEDS: HEPARIN NA (PORCINE) 5,000 UNITS/ML 1ML VIAL SQ SCH ×3 (07:07→22:52)
[2017-07-29 08:07] LABS: TRANSFERRIN 164 mg/dL (200-370)
[2017-07-29 08:24] LABS: BASO % 0.5 % (0-2.0); EOS % 3.3 % (0-4.5); MCH 30.7 pg (25.7-33.7); MCHC 32.3 g/dl (32.0-35.9); MEAN PLT VOLUME 7.2 fl (7.5-11.1); NEUT % 70.5 % (42.8-82.8); PLATELET COUNT 497 K/MM3 (134-434); RDW 13.2 % (11.9-15.9); WHITE BLOOD COUNT 13.5 K/mm3 (4.0-10.0)
[2017-07-29 08:38] LABS: INR 1.19 (0.82-1.09); PROTHROMBIN TIME (PATIENT) 13.4 SEC (9.98-11.88)
[2017-07-29 08:47] LABS: ANION GAP 4 (8-16); BILIRUBIN,TOTAL 0.4 mg/dL (0.2-1.0); CALCIUM 8.3 mg/dL (8.5-10.1); CO2 33 mmol/L (21-32); CREATININE 1.3 mg/dL (0.7-1.3); GLUCOSE,RANDOM 94 mg/dL (74-106); MAGNESIUM 2.3 mg/dL (1.8-2.4); PHOSPHOROUS 3.7 mg/dL (2.5-4.9); SGOT/AST 14 U/L (15-37); SGPT/ALT 8 U/L (12-78); TOT PROT 6.4 g/dl (6.4-8.2)
[2017-07-29 08:48] LABS: ALK PHOS 87 U/L (45-117)
[2017-07-29] MEDS ORDERED: morphine SULFATE IMMEDIATE RELEASE 30 MG TAB PO SCH (10:00)
--- NOTE | 2017-07-29 11:33 | PN ---
Progress Note, Physician History of Present Illness: PULMONARY SLEEPING ,ON VENT SUPPORT,-RESP DISTRESS - Current Medication List Current Medications: Active Medications Albuterol/Ipratropium (Duoneb -) 1 amp NEB QIDR [facility] Last Admin: 07/29/17 11:18 Dose: 1 amp Bacitracin (Bacitracin -) 1 applic TP DAILY [facility] Docusate Sodium (Colace Liquid -) 300 mg GT HS [facility] Last Admin: 07/28/17 23:11 Dose: 300 mg Heparin Sodium (Porcine) (Heparin -) 5,000 unit SQ TID [facility] Last Admin: 07/29/17 07:07 Dose: 5,000 unit Sodium Chloride (Normal Saline -) 1,000 mls @ 75 mls/hr IV ASDIR [facility] Last Admin: 07/28/17 20:32 Dose: 75 mls/hr Piperacillin Sod/Tazobactam (Sod 3.375 gm/ Dextrose) 50 mls @ 100 mls/hr IVPB Q8H-IV [facility] Last Admin: 07/29/17 02:25 Dose: 100 mls/hr Morphine Sulfate (Msir -) 15 mg PO DAILY [facility] Prednisone (Deltasone -) 5 mg GT DAILY [facility] Ranitidine HCl (Zantac Oral Solution -) 150 mg GT DAILY [facility] Senna (Senna -) 2 tab PO DAILY [facility] Trazodone HCl (Desyrel -) 100 mg PO HS [facility] Last Admin: 07/28/17 23:11 Dose: 100 mg - Objective Vital Signs: Vital Signs Temperature 97.8 F 07/29/17 06:00 Pulse Rate 93 H 07/29/17 09:32 Respiratory Rate 29 H 07/29/17 09:31 Blood Pressure 101/48 07/29/17 06:00 O2 Sat by Pulse Oximetry (%) 100 07/29/17 09:32 Constitutional: Yes: Thin, Other (THIN) Eyes: Yes: WNL HENT: Yes: WNL Neck: Yes: Supple (TRACH) Cardiovascular: Yes: Regular Rate and Rhythm, S1, S2 Respiratory: Yes: Diminished Gastrointestinal: Yes: Normal Bowel Sounds, Soft Extremities: Yes: WNL Edema: No Labs: CBC, BMP 07/29/17 08:10 07/29/17 08:10 INR, PTT INR 1.19 (0.82-1.09) H 07/29/17 08:10 - ....Imaging Chest X-ray: Report Reviewed, Image Reviewed Problem List - Problems (1) Pneumothorax Code(s): J93.9 - PNEUMOTHORAX, UNSPECIFIED (2) Ventilator barotrauma Code(s): T88.9XXA - COMPLICATION OF SURGICAL AND MEDICAL CARE, UNSP, INIT ENCNTR (3) Interstitial lung disease Code(s): J84.9 - INTERSTITIAL PULMONARY DISEASE, UNSPECIFIED (4) Chronic respiratory failure Code(s): J96.10 - CHRONIC RESPIRATORY FAILURE, UNSP W HYPOXIA OR HYPERCAPNIA (5) Fall from bed Code(s): W06.XXXA - FALL FROM BED, INITIAL ENCOUNTER Assessment/Plan ASSESSMENT AND PLAN: Acute on Chronic Respiratory Failure Loculated Pneumothorax Pneumomediastinum Interstitial Lung Disease r/o Pnuemonia Acute Kidney Injury - pain control - keep PEEP 0 - repeat CXR - empiric antibiotics - suspect majority of findings on CT chest are chronic - inhaled bronchodilators - O2 to keep SpO2 >90% - IVF - monitor urine output, creatinine - enteral feeds - spontaneous breathing trials as tolerated - DVT/GI prophylaxis DR ENRIQUE
[2017-07-29] MEDS: RANITIDINE HCL 150 MG/10 ML UNIT-DOSE GT SCH (12:20)
[2017-07-29] MEDS: SENNOSIDES 8.6MG TABLET (FP) PO SCH (12:20)
[2017-07-29] MEDS: predniSONE 5 MG TABLET (UD) GT SCH (12:20)
[2017-07-29] MEDS: morphine SULFATE IMMEDIATE RELEASE 30 MG TAB PO SCH (12:20)
[2017-07-29] MEDS: SODIUM CHLORIDE 1,000 ML IV SCH ×2 (15:08→19:20)
--- NOTE | 2017-07-29 16:03 | PN ---
Progress Note (short form) - Note Progress Note: resting comfortably Vital Signs Period Temp Pulse Resp BP Sys/Fatima Pulse Ox Last 24 Hr 97.6 F-99.0 F 70-93 16-29 98-113/48-58 98-100 cor-rrr lungs scattered rhonchi abd soft,nt +gt ext no edema CBC, BMP 07/29/17 08:10 07/29/17 08:10 Microbiology 07/28/17 09:42 Urine For Antigen Detection Legionella Antigen - Final 07/28/17 09:42 Urine For Antigen Detection Streptococcus pneumoniae Antigen (M - Final 07/28/17 06:30 Urine - Urine Clean Catch Urine Culture - Final NO GROWTH OBTAINED 07/28/17 05:16 Blood - Peripheral Venous Blood Culture - Preliminary NO GROWTH OBTAINED AFTER 24 HOURS, INCUBATION TO CONTINUE FOR 4 DAYS. 07/28/17 05:26 Blood - Peripheral Venous Blood Culture - Preliminary NO GROWTH OBTAINED AFTER 24 HOURS, INCUBATION TO CONTINUE FOR 4 DAYS. imp/reccd 82 year old man with chronic repiratory failure, recently admitted [place] the [place] from [facility] with trach and PEG-on vent admitted s/p fall s/p fall r/o pneumonia chronic resp failure ILD f/u cultures, labs wbc improving continue zosyn day #[address] report from [facility] if possible Problem List - Problems (1) Fall from bed Code(s): W06.XXXA - FALL FROM BED, INITIAL ENCOUNTER (2) Pneumonia Code(s): J18.9 - PNEUMONIA, UNSPECIFIED ORGANISM (3) Chronic respiratory failure Code(s): J96.10 - CHRONIC RESPIRATORY FAILURE, UNSP W HYPOXIA OR HYPERCAPNIA
--- NOTE | 2017-07-29 18:59 | PN ---
Teaching Attending Note Name of Resident: Paula Herron ATTENDING PHYSICIAN STATEMENT I saw and evaluated the patient. I reviewed the resident's note and discussed the case with the resident. I agree with the resident's findings and plan as documented. SUBJECTIVES: no SOB or CP . OBJECTIVE: Awake, alert , responsive , tries to talk. MMM 2 small laceration on R anterior forehead and on uppr nose . symmetric face , round equal pupils, minimally reactive to light . CV: RRR, no MRG, No JVD Lungs: b/l course rales . 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 He was found to be septic with a small pneumothorax and pneumo-mediastinum 1- Sepsis: likely form pulmonary source ( PNA) - cont zosyn . - decrease IVF as feedign are to start - follow cx 2- CHANTE: prerenal azotemia form volume depletion - IVF as above 3- AMS: due to sepsis and volume depletion - dramatic improvement. back to base line - cont to monitor 4- Small R pneumothorax, and pneumomediastinum: likely due to severe bolus disease and ruptured bulla spontaneously . stable 5- anemia of chronic disease with dilutional drop 6- chronic resp failure : - cont vent - cont Nebs - cont chronic steroids dispo : HLOC
[2017-07-29] MEDS: BACITRACIN 15 GM TUBE TOPICAL OINTMENT TP SCH (19:00)
--- NOTE | 2017-07-29 19:27 | PN ---
Physical Exam: SUBJECTIVE: Patient seen and examined. Pt lethargic on exam, awake later on re- assessment. No fever, chills. No events overnight. OBJECTIVE: Vital Signs Period Temp Pulse Resp BP Sys/Fatima Pulse Ox Last 24 Hr 97.6 F-99.0 F 70-93 16-29 98-117/48-61 98-100 GENERAL: The patient is intubated, comfortable, not sedated. Upon reassessment , pt is responsive in [place]. HEENT: 2 small lacerations on Right anterior forehead and upper nose. PERRLA. MMM. LUNGS: Course bhavik rales throughout. No accessory muscle use. HEART: Regular rate and rhythm, S1, S2 without murmur, rub or gallop. ABDOMEN: Soft, nondistended, normoactive bowel sounds, no masses. EXTREMITIES: 1+ pulses, warm, well-perfused, no edema. Laboratory Results - last 24 hr 07/28/17 07/28/17 07/28/17 10:30 16:30 16:30 WBC RBC Hgb Hct MCV MCH MCHC RDW Plt Count MPV Neutrophils % Lymphocytes % Monocytes % Eosinophils % Basophils % PT with INR INR Sodium Potassium Chloride Carbon Dioxide Anion Gap BUN Creatinine Creat Clearance w eGFR Random Glucose Calcium Phosphorus Magnesium Iron 20 L TIBC 204 L Iron Saturation 10 L Transferrin 164 L Total Bilirubin AST ALT Alkaline Phosphatase Total Protein Albumin Ur Random Sodium 28 Ur Random Potassium 50.4 Ur Random Chloride 22 Urine Creatinine 61.2 07/29/17 07/29/17 07/29/17 08:10 08:10 08:10 WBC 13.5 H D RBC 2.75 L Hgb 8.4 L D Hct 26.2 L D MCV 95.0 MCH 30.7 MCHC 32.3 RDW 13.2 Plt Count 497 H MPV 7.2 L Neutrophils % 70.5 Lymphocytes % 17.3 D Monocytes % 8.4 Eosinophils % 3.3 D Basophils % 0.5 PT with INR 13.40 H INR 1.19 H Sodium 140 Potassium 4.3 Chloride 103 Carbon Dioxide 33 H Anion Gap 4 L BUN 38 H D Creatinine 1.3 Creat Clearance w eGFR 52.72 Random Glucose 94 D Calcium 8.3 L Phosphorus 3.7 Magnesium 2.3 Iron TIBC Iron Saturation Transferrin Total Bilirubin 0.4 D AST 14 L D ALT 8 L D Alkaline Phosphatase 87 D Total Protein 6.4 Albumin 2.0 L Ur Random Sodium Ur Random Potassium Ur Random Chloride Urine Creatinine Active Medications Generic Name Dose Route Start Last Admin Trade Name Duglasq PRN Reason Stop Dose Admin Albuterol/Ipratropium 1 amp 07/29/17 00:00 07/29/17 11:18 Duoneb - NEB 1 amp QIDR ROSETTE Administration Bacitracin 1 applic 07/29/17 10:00 Bacitracin - TP DAILY ROSETTE Docusate Sodium 300 mg 07/28/17 22:00 07/28/17 23:11 Colace Liquid - GT 300 mg HS ROSETTE Administration Heparin Sodium (Porcine) 5,000 unit 07/28/17 22:00 07/29/17 15:10 Heparin - SQ 5,000 unit TID ROSETTE Administration Sodium Chloride 1,000 mls @ 75 mls/hr 07/28/17 20:30 07/29/17 15:08 Normal Saline - IV 75 mls/hr ASDIR [facility]ETTE Administration Piperacillin Sod/Tazobactam 50 mls @ 100 mls/hr 07/29/17 02:00 07/29/17 15:16 Sod 3.375 gm/ Dextrose IVPB 100 mls/hr Q8H-IV ROSETTE Administration Morphine Sulfate 15 mg 07/29/17 10:00 07/29/17 12:20 Msir - PO 15 mg DAILY ROSETTE Administration Prednisone 5 mg 07/29/17 10:00 07/29/17 12:20 Deltasone - GT 5 mg DAILY [facility]ETTE Administration Ranitidine HCl 150 mg 07/29/17 10:00 07/29/17 12:20 Zantac Oral Solution - GT 150 mg DAILY ROSETTE Administration Senna 2 tab 07/29/17 10:00 07/29/17 12:20 Senna - PO 2 tab DAILY ROSETTE Administration Trazodone HCl 100 mg 07/28/17 22:00 07/28/17 23:11 Desyrel - PO 100 mg HS ROSETTE Administration ASSESSMENT/PLAN: 82yo M with PMH of chronic respiratory failure 2/2 emphysema, s/p recent trach and chronic vent x 2 weeks, presented s/p a fall from the bed, found to be septic with a small pneumothorax and pneumomediastinum. # sepsis - likely 2/2 a pulmonary source, possibly vent-associated pna - Day 2 IV Zosyn - IVFs - continue vent with PEEP setting of 0 - spontaneous breathing trials as tolerated - pain management with Morphine daily # chronic respiratory failure - continue vent - continue nebulizers - continue Prednisone # CHANTE - resolved - continue IVFs - continue to monitor urine output and Cr # Right PTX and pneumomediastinum - likely 2/2 severe bullous disease, spontaneously ruptured bulla, and chronic in nature - stable # normocytic anemia - anemia of chronic disease with dilutional drop # FEN - Fluids: NS @ 75 ml/hr - Electrolytes: wnl, continue to monitor - Nutrition: Jevity 1.5 @ 20 ml/hr to goal of 35 ml/hr + 35 ml/hr free water # Prophylaxis - DVT ppx with Heparin TID - GI ppx with Zantac Visit type - Emergency Visit Emergency Visit: Yes ED Registration Date: 07/28/17 Care time: The patient presented to the Emergency Department on the above date and was hospitalized for further evaluation of their emergent condition. - New Patient This patient is new to me today: Yes Date on this admission: 07/29/17 - Critical Care Critical Care patient: No
[2017-07-29] MEDS ORDERED: traZODone HCL 50 MG TABLET (FP) ONE (21:13)
[2017-07-29] MEDS: DOCUSATE NA 100 MG/10 ML UNIT-DOSE CUPS GT SCH (22:51)
[2017-07-29] MEDS: traZODone HCL 100 MG TABLET (FP) PO SCH (22:51)
[2017-07-30] MEDS: PIPERACILLIN/TAZOB 3.375 GM 3.375 GM in DEXTROSE 5%-WATER - 50 ML IVPB SCH ×3 (02:15→18:45)
[2017-07-30] MEDS: ALBUTEROL SO4 2.5/IPRATROPIUM 0.5 INH SOL 3 ML VIAL.NEB. NEB SCH ×3 (06:25→18:54)
[2017-07-30] MEDS: HEPARIN NA (PORCINE) 5,000 UNITS/ML 1ML VIAL SQ SCH ×3 (06:48→22:50)
[2017-07-30 07:41] LABS: MCH 30.8 pg (25.7-33.7); MCHC 32.6 g/dl (32.0-35.9); MEAN CELL VOLUME 94.6 fl (80-96); PLATELET COUNT 500 K/MM3 (134-434); RDW 13.2 % (11.9-15.9); WHITE BLOOD COUNT 14.7 K/mm3 (4.0-10.0)
[2017-07-30 08:21] LABS: ANION GAP 7 (8-16); CALCIUM 8.2 mg/dL (8.5-10.1); CO2 29 mmol/L (21-32)
[2017-07-30 08:25] LABS: CREATININE 1.3 mg/dL (0.7-1.3); GLUCOSE,RANDOM 123 mg/dL (74-106)
--- NOTE | 2017-07-30 08:51 | PN ---
Teaching Attending Note Name of Resident: Paula Herron ATTENDING PHYSICIAN STATEMENT I saw and evaluated the patient. I reviewed the resident's note and discussed the case with the resident. I agree with the resident's findings and plan as documented. SUBJECTIVE: Patient is comfortable with no acute distress. OBJECTIVE: Vital Signs Temperature 98.3 F 07/30/17 06:00 Pulse Rate 86 07/30/17 06:00 Respiratory Rate 22 07/30/17 06:25 Blood Pressure 118/60 07/30/17 06:00 O2 Sat by Pulse Oximetry (%) 99 07/29/17 21:00 CBCD WBC 14.7 K/mm3 (4.0-10.0) H 07/30/17 06:35 RBC 2.70 M/mm3 (4.00-5.60) L 07/30/17 06:35 Hgb 8.3 GM/dL (11.7-16.9) L 07/30/17 06:35 Hct 25.5 % (35.4-49) L 07/30/17 06:35 MCV 94.6 fl (80-96) 07/30/17 06:35 MCHC 32.6 g/dl (32.0-35.9) 07/30/17 06:35 RDW 13.2 % (11.9-15.9) 07/30/17 06:35 Plt Count 500 K/MM3 (134-434) H 07/30/17 06:35 MPV 7.0 fl (7.5-11.1) L 07/30/17 06:35 CMP Sodium 140 mmol/L (136-145) 07/30/17 06:35 Potassium 3.9 mmol/L (3.5-5.1) 07/30/17 06:35 Chloride 104 mmol/L (98-107) 07/30/17 06:35 Carbon Dioxide 29 mmol/L (21-32) 07/30/17 06:35 Anion Gap 7 (8-16) L 07/30/17 06:35 BUN 32 mg/dL (7-18) H 07/30/17 06:35 Creatinine 1.3 mg/dL (0.7-1.3) 07/30/17 06:35 Creat Clearance w eGFR 52.72 (>60) 07/29/17 08:10 Random Glucose 123 mg/dL (74-106) H D 07/30/17 06:35 Calcium 8.2 mg/dL (8.5-10.1) L 07/30/17 06:35 Total Bilirubin 0.4 mg/dL (0.2-1.0) D 07/29/17 08:10 AST 14 U/L (15-37) L D 07/29/17 08:10 ALT 8 U/L (12-78) L D 07/29/17 08:10 Alkaline Phosphatase 87 U/L (45-117) D 07/29/17 08:10 Total Protein 6.4 g/dl (6.4-8.2) 07/29/17 08:10 Albumin 2.0 g/dl (3.4-5.0) L 07/29/17 08:10 Current Medications Generic Name Dose Route Start Last Admin Trade Name Freq PRN Reason Stop Dose Admin Albuterol/Ipratropium 1 amp 07/29/17 00:00 07/30/17 06:25 Duoneb - NEB 1 amp QIDR ROSETTE Administration Bacitracin 1 applic 07/29/17 10:00 07/29/17 19:00 Bacitracin - TP 1 applic DAILY ROSETTE Administration Docusate Sodium 300 mg 07/28/17 22:00 07/29/17 22:51 Colace Liquid - GT 300 mg HS ROSETTE Administration Heparin Sodium (Porcine) 5,000 unit 07/28/17 22:00 07/30/17 06:48 Heparin - SQ 5,000 unit TID ROSETTE Administration Piperacillin Sod/Tazobactam 50 mls @ 100 mls/hr 07/29/17 02:00 07/30/17 02:15 Sod 3.375 gm/ Dextrose IVPB 100 mls/hr Q8H-IV ROSETTE Administration Sodium Chloride 1,000 mls @ 50 mls/hr 07/29/17 19:01 07/29/17 19:20 Normal Saline - IV 50 mls/hr ASDIR ROSETTE Administration Morphine Sulfate 15 mg 07/29/17 10:00 07/29/17 12:20 Msir - PO 15 mg DAILY ROSETTE Administration Prednisone 5 mg 07/29/17 10:00 07/29/17 12:20 Deltasone - GT 5 mg DAILY ROSETTE Administration Ranitidine HCl 150 mg 07/29/17 10:00 07/29/17 12:20 Zantac Oral Solution - GT 150 mg DAILY ROSETTE Administration Senna 2 tab 07/29/17 10:00 07/29/17 12:20 Senna - PO 2 tab DAILY ROSETTE Administration Trazodone HCl 100 mg 07/28/17 22:00 07/29/17 22:51 Desyrel - PO 100 mg HS ROSETTE Administration Home Medications Medication Instructions Recorded Acetaminophen [Tylenol -] 650 mg GT Q6H PRN 07/28/17 Albuterol 0.083% Nebulizer Kita 1 neb NEB Q6H 07/28/17 [Ventolin 0.083% Nebulizer Soln -] Chlorhexidine Gluconate 15 ml MM BID 07/28/17 Docusate Liquid [Colace Liquid -] 300 mg GT HS 07/28/17 Famotidine [Pepcid -] 20 mg GT AM 07/28/17 Hypromellose 0.5% Opth Soln 1 drop OU Q6H 07/28/17 [Artificial Tears] Ipratropium 0.02% Nebulizer 1 neb NEB Q6H 07/28/17 [Atrovent] Levofloxacin 750 mg GT DAILY 07/28/17 Morphine *Immediate Release* [Msir 15 mg GT BID 07/28/17 -] Oxycodone HCl 5 mg GT Q4H PRN 07/28/17 Prednisone 5 mg GT DAILY 07/28/17 Sennosides [Senna] 17.2 mg GT DAILY 07/28/17 Trazodone HCl 100 mg GT HS 07/28/17 PE: per resident's note ASSESSMENT AND PLAN: Patient is a 82 y/o man with h/o 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 He was found to be septic with a small pneumothorax and pneumo-mediastinum # Acute sepsis: improving cont zosyn, pending cx # CHANTE: due to volume depletion ;continue IVF # AMS: due to sepsis and volume depletion back to base line. continue to monitor # Small Right pneumothorax, and pneumomediastinum: likely due to severe bolus disease and ruptured bulla spontaneously stable. # anemia of chronic disease monitor # chronic resp failure : cont vent, Nebs ,on steroids. DVT Px: Heparin
[2017-07-30] MEDS: BACITRACIN 15 GM TUBE TOPICAL OINTMENT TP SCH (10:45)
[2017-07-30] MEDS: SENNOSIDES 8.6MG TABLET (FP) PO SCH (11:16)
[2017-07-30] MEDS: predniSONE 5 MG TABLET (UD) GT SCH (11:17)
[2017-07-30] MEDS: morphine SULFATE IMMEDIATE RELEASE 30 MG TAB PO SCH (11:17)
[2017-07-30] MEDS: RANITIDINE HCL 150 MG/10 ML UNIT-DOSE GT SCH (11:17)
[2017-07-30] MEDS: SODIUM CHLORIDE 1,000 ML IV SCH ×2 (11:18→22:39)
[2017-07-30] MEDS ORDERED: PT OWN MED DRAWER 7, Y5N ONE ×2 (11:31→22:38)
--- NOTE | 2017-07-30 16:06 | PN ---
Progress Note (short form) - Note Progress Note: resting comfortably still with collar Vital Signs Period Temp Pulse Resp BP Sys/Fatima Pulse Ox Last 24 Hr 97.4 F-99.6 F 74-86 16-26 107-118/53-67 99-100 cor-rrr lungs clear abd soft,nt ext no edema CBC, BMP 07/30/17 06:35 07/30/17 06:35 Microbiology 07/29/17 15:30 Nasopharyngeal Swab Respiratory Virus Panel - Preliminary 07/29/17 16:00 Nasopharyngeal Swab Influenza Types A,B Antigen ([place]) - Final 07/29/17 16:00 Nasopharyngeal Swab - Final 07/28/17 05:16 Blood - Peripheral Venous Blood Culture - Preliminary NO GROWTH OBTAINED AFTER 48 HOURS, INCUBATION TO CONTINUE FOR 3 DAYS. 07/28/17 05:26 Blood - Peripheral Venous Blood Culture - Preliminary NO GROWTH OBTAINED AFTER 48 HOURS, INCUBATION TO CONTINUE FOR 3 DAYS. 07/29/17 16:00 Nasopharyngeal Swab Respiratory Syncytial Virus Ag - Final 07/28/17 09:42 Urine For Antigen Detection Legionella Antigen - Final 07/28/17 09:42 Urine For Antigen Detection Streptococcus pneumoniae Antigen (M - Final 07/28/17 06:30 Urine - Urine Clean Catch Urine Culture - Final NO GROWTH OBTAINED imp/reccd 82 year old man with chronic repiratory failure, recently admitted [facility] the [place] [facility] with trach and PEG-on vent admitted s/p fall s/p fall r/o pneumonia chronic resp failure ILD f/u cultures, labs wbc improving continue zosyn day #3 much more alert spoke with micro- influenza antigen was read by [employer] tech as positive for A and B- an invalid result- repeat was negative for A and B- they have sent out specimen for confirmation- I donot think he has influenza Problem List - Problems (1) Fall from bed Code(s): W06.XXXA - FALL FROM BED, INITIAL ENCOUNTER (2) Pneumonia Code(s): J18.9 - PNEUMONIA, UNSPECIFIED ORGANISM (3) Chronic respiratory failure Code(s): J96.10 - CHRONIC RESPIRATORY FAILURE, UNSP W HYPOXIA OR HYPERCAPNIA
--- NOTE | 2017-07-30 18:06 | PN ---
Physical Exam: SUBJECTIVE: Patient seen and examined. Pt much more alert today, arousable. No fever, chills. No events overnight. OBJECTIVE: Vital Signs Period Temp Pulse Resp BP Sys/Fatima Pulse Ox Last 24 Hr 97.4 F-99.6 F 74-86 16-26 107-118/53-67 99-100 GENERAL: The patient is intubated, comfortable, not sedated, arousable. HEENT: 2 small lacerations on Right anterior forehead and upper nose. LUNGS: Course bhavik rales throughout. No accessory muscle use. HEART: Regular rate and rhythm, S1, S2 without murmur, rub or gallop. ABDOMEN: Soft, nondistended, no masses. EXTREMITIES: 1+ pulses, warm, well-perfused, no edema. Laboratory Results - last 24 hr 07/28/17 07/30/17 07/30/17 10:30 06:35 06:35 WBC 14.7 H RBC 2.70 L Hgb 8.3 L Hct 25.5 L MCV 94.6 MCH 30.8 MCHC 32.6 RDW 13.2 Plt Count 500 H MPV 7.0 L Sodium 140 Potassium 3.9 Chloride 104 Carbon Dioxide 29 Anion Gap 7 L BUN 32 H Creatinine 1.3 Random Glucose 123 H D Calcium 8.2 L M.pneumoniae IgM Titer <770 Active Medications Generic Name Dose Route Start Last Admin Trade Name Freq PRN Reason Stop Dose Admin Albuterol/Ipratropium 1 amp 07/29/17 00:00 07/30/17 12:01 Duoneb - NEB 1 amp QIDR ROSETTE Administration Bacitracin 1 applic 07/29/17 10:00 07/29/17 19:00 Bacitracin - TP 1 applic DAILY ROSETTE Administration Docusate Sodium 300 mg 07/28/17 22:00 07/29/17 22:51 Colace Liquid - GT 300 mg HS ROSETTE Administration Heparin Sodium (Porcine) 5,000 unit 07/28/17 22:00 07/30/17 14:43 Heparin - SQ 5,000 unit TID ROSETTE Administration Piperacillin Sod/Tazobactam 50 mls @ 100 mls/hr 07/29/17 02:00 07/30/17 11:35 Sod 3.375 gm/ Dextrose IVPB 100 mls/hr Q8H-IV ROSETTE Administration Sodium Chloride 1,000 mls @ 50 mls/hr 07/29/17 19:01 07/30/17 11:18 Normal Saline - IV 50 mls/hr ASDIR ROSETTE Administration Morphine Sulfate 15 mg 07/29/17 10:00 07/30/17 11:17 Msir - PO 15 mg DAILY ROSETTE Administration Prednisone 5 mg 07/29/17 10:00 07/30/17 11:17 Deltasone - GT 5 mg DAILY ROSETTE Administration Ranitidine HCl 150 mg 07/29/17 10:00 07/30/17 11:17 Zantac Oral Solution - GT 150 mg DAILY ROSETTE Administration Senna 2 tab 07/29/17 10:00 07/30/17 11:16 Senna - PO 2 tab DAILY ROSETTE Administration Trazodone HCl 100 mg 07/28/17 22:00 07/29/17 22:51 Desyrel - PO 100 mg HS ROSETTE Administration IMAGIN07/30/17 CXR -> no PTX or pneumomediastinum appreciated ASSESSMENT/PLAN: 82yo M with PMH of chronic respiratory failure 2/2 emphysema, s/p recent trach and chronic vent x 2 weeks, presented s/p a fall from the bed, found to be septic with a small pneumothorax and pneumomediastinum. # sepsis - likely 2/2 a pulmonary source, possibly vent-associated pna - influenza A and B (+) -> unlikely result -> specimen sent for confirmation - RSV (-) - Strep pneumo (-) - Legionella (-) - urine culture (-) - blood cultures (-) x 48 hrs - Day 3 IV Zosyn - IVFs - continue vent with PEEP setting of 0 - spontaneous breathing trials as tolerated - pain management with Morphine daily - darling removed -> f/u voiding trial # chronic respiratory failure - continue vent - continue Duoneb and Prednisone # Right PTX and pneumomediastinum - likely 2/2 severe bullous disease, spontaneously ruptured bulla, and chronic in nature - resolved # normocytic anemia - anemia of chronic disease with dilutional drop - stable # FEN - Fluids: NS @ 50 ml/hr - Electrolytes: wnl, continue to monitor - Nutrition: Jevity 1.5 @ 20 ml/hr to goal of 35 ml/hr + 35 ml/hr free water # Prophylaxis - DVT ppx with Heparin TID - GI ppx with Zantac Visit type - Emergency Visit Emergency Visit: Yes ED Registration Date: 07/28/17 Care time: The patient presented to the Emergency Department on the above date and was hospitalized for further evaluation of their emergent condition. - New Patient This patient is new to me today: No - Critical Care Critical Care patient: No
[2017-07-30] MEDS ORDERED: traZODone HCL 50 MG TABLET (FP) ONE (22:37)
[2017-07-30] MEDS: traZODone HCL 100 MG TABLET (FP) PO SCH (22:50)
[2017-07-30] MEDS: DOCUSATE NA 100 MG/10 ML UNIT-DOSE CUPS GT SCH (22:50)
[2017-07-31] MEDS: ALBUTEROL SO4 2.5/IPRATROPIUM 0.5 INH SOL 3 ML VIAL.NEB. NEB SCH ×5 (00:42→23:21)
[2017-07-31] MEDS: PIPERACILLIN/TAZOB 3.375 GM 3.375 GM in DEXTROSE 5%-WATER - 50 ML IVPB SCH ×3 (01:41→18:46)
[2017-07-31] MEDS: HEPARIN NA (PORCINE) 5,000 UNITS/ML 1ML VIAL SQ SCH ×3 (07:08→22:41)
[2017-07-31 07:35] LABS: MCH 30.8 pg (25.7-33.7); MCHC 32.9 g/dl (32.0-35.9); MEAN CELL VOLUME 93.6 fl (80-96); MEAN PLT VOLUME 7.2 fl (7.5-11.1); PLATELET COUNT 487 K/MM3 (134-434); RDW 12.8 % (11.9-15.9); WHITE BLOOD COUNT 13.6 K/mm3 (4.0-10.0)
[2017-07-31] MEDS: SODIUM CHLORIDE 1,000 ML IV SCH ×2 (07:58→22:39)
[2017-07-31 08:19] LABS: ANION GAP 5 (8-16); CALCIUM 7.7 mg/dL (8.5-10.1); CO2 31 mmol/L (21-32); CREATININE 1.1 mg/dL (0.7-1.3); GLUCOSE,RANDOM 122 mg/dL (74-106)
[2017-07-31] MEDS: RANITIDINE HCL 150 MG/10 ML UNIT-DOSE GT SCH (11:14)
[2017-07-31] MEDS: morphine SULFATE IMMEDIATE RELEASE 30 MG TAB PO SCH (11:15)
[2017-07-31] MEDS: predniSONE 5 MG TABLET (UD) GT SCH (11:15)
[2017-07-31] MEDS: SENNOSIDES 8.6MG TABLET (FP) PO SCH (11:15)
--- NOTE | 2017-07-31 11:23 | PN ---
Progress Note (short form) - Note Progress Note: NAD on AC Mode of vent, 35% FiO2. No acute events overnight. Intake & Output 07/28/17 07/29/17 07/30/17 07/31/17 23:59 23:59 23:59 23:59 Intake Total 835 322 7370 1610 Output Total 5470 149 0998 Balance -463 287 7300 1610 Weight 105 lb 8 oz Last Vital Signs Temp Pulse Resp BP Pulse Ox 98.1 F 74 22 142/60 99 07/31/17 06:00 07/31/17 09:34 07/31/17 09:34 07/31/17 06:00 07/31/17 09:34 Active Medications Albuterol/Ipratropium (Duoneb -) 1 amp NEB QIDR [facility] Last Admin: 07/31/17 11:17 Dose: 1 amp Bacitracin (Bacitracin -) 1 applic TP DAILY [facility] Last Admin: 07/30/17 10:45 Dose: 1 applic Docusate Sodium (Colace Liquid -) 300 mg GT HS [facility] Last Admin: 07/30/17 22:50 Dose: 300 mg Heparin Sodium (Porcine) (Heparin -) 5,000 unit SQ TID [facility]ETTE Last Admin: 07/31/17 07:08 Dose: 5,000 unit Piperacillin Sod/Tazobactam (Sod 3.375 gm/ Dextrose) 50 mls @ 100 mls/hr IVPB Q8H-IV [facility]ETTE Last Admin: 07/31/17 01:41 Dose: 100 mls/hr Sodium Chloride (Normal Saline -) 1,000 mls @ 50 mls/hr IV ASDIR [facility] Last Admin: 07/31/17 07:58 Dose: 50 mls/hr Morphine Sulfate (Msir -) 15 mg PO DAILY [facility]TE Last Admin: 07/31/17 11:15 Dose: 15 mg Prednisone (Deltasone -) 5 mg GT DAILY [facility]TE Last Admin: 07/31/17 11:15 Dose: 5 mg Ranitidine HCl (Zantac Oral Solution -) 150 mg GT DAILY [facility] Last Admin: 07/31/17 11:14 Dose: 150 mg Senna (Senna -) 2 tab PO DAILY [facility]ETTE Last Admin: 07/31/17 11:15 Dose: 2 tab Trazodone HCl (Desyrel -) 100 mg PO HS [facility] Last Admin: 07/30/17 22:50 Dose: 100 mg Constitutional: Yes: Thin, Other (THIN) Eyes: Yes: WNL HENT: Yes: WNL Neck: Yes: Supple (TRACH) Cardiovascular: Yes: Regular Rate and Rhythm, S1, S2 Respiratory: Yes: Diminished Gastrointestinal: Yes: Normal Bowel Sounds, Soft Extremities: Yes: WNL Edema: No Labs: Laboratory Results - last 24 hr 07/28/17 07/31/17 07/31/17 10:30 07:05 07:05 WBC 13.6 H RBC 2.59 L Hgb 8.0 L Hct 24.2 L MCV 93.6 MCH 30.8 MCHC 32.9 RDW 12.8 Plt Count 487 H MPV 7.2 L Sodium 136 Potassium 4.0 Chloride 100 Carbon Dioxide 31 Anion Gap 5 L BUN 22 H D Creatinine 1.1 Random Glucose 122 H Calcium 7.7 L M.pneumoniae IgM Titer <770 Problem List - Problems (1) Pneumothorax Code(s): J93.9 - PNEUMOTHORAX, UNSPECIFIED (2) Ventilator barotrauma Code(s): T88.9XXA - COMPLICATION OF SURGICAL AND MEDICAL CARE, UNSP, INIT ENCNTR (3) Interstitial lung disease Code(s): J84.9 - INTERSTITIAL PULMONARY DISEASE, UNSPECIFIED (4) Chronic respiratory failure Code(s): J96.10 - CHRONIC RESPIRATORY FAILURE, UNSP W HYPOXIA OR HYPERCAPNIA (5) Fall from bed Code(s): W06.XXXA - FALL FROM BED, INITIAL ENCOUNTER Assessment/Plan ASSESSMENT AND PLAN: Acute on Chronic Respiratory Failure Loculated Pneumothorax Pneumomediastinum Interstitial Lung Disease Pnuemonia Acute Kidney Injury - pain control - PEEP 0 - ABX per ID - inhaled bronchodilators - O2 to keep SpO2 >90% - enteral feeds - DVT/GI prophylaxis Dr Davila
--- NOTE | 2017-07-31 13:45 | PN ---
Progress Note (short form) - Note Progress Note: ID Sonnyn day 4 Selected Entries 07/31/17 07/31/17 07/31/17 06:00 09:34 11:15 Temperature 98.1 F Pulse Rate 73 Respiratory 22 Rate Blood Pressure 137/65 Lung Clear Cor S1 S2 RR abd Soft nontender Microbiology 07/30/17 11:00 Sputum - Endotracheal Suction W/O Vent Sputum Culture - Preliminary Lactose Fermenting Neg Bacilli 07/28/17 05:26 Blood - Peripheral Venous Blood Culture - Preliminary NO GROWTH OBTAINED AFTER 72 HOURS, INCUBATION TO CONTINUE FOR 2 DAYS. 07/28/17 05:16 Blood - Peripheral Venous Blood Culture - Preliminary NO GROWTH OBTAINED AFTER 72 HOURS, INCUBATION TO CONTINUE FOR 2 DAYS. Laboratory Tests 07/28/17 07/31/17 07/31/17 06:30 07:05 07:05 WBC 13.6 H Hgb 8.0 L Hct 24.2 L Plt Count 487 H BUN 22 H D Creatinine 1.1 Urine WBC (Auto) 1 Urine RBC (Auto) 19 Assessment Respiratory failure Loculated pneumothorax Pneumonia Lactose online activist sputum Plan Continue antibiotic as ordered Stu DOSS
[2017-07-31] MEDS: BACITRACIN 15 GM TUBE TOPICAL OINTMENT TP SCH (15:04)
[2017-07-31] MEDS ORDERED: PT OWN MED DRAWER 7, Y5N ONE ×2 (18:41→20:35)
--- NOTE | 2017-07-31 19:26 | PN ---
Physical Exam: SUBJECTIVE: Patient seen and examined. Moffett removed yesterday and pt voided. No fever, chills. No events overnight. OBJECTIVE: Vital Signs Period Temp Pulse Resp BP Sys/Fatima Pulse Ox Last 24 Hr 98.0 F-100 F 64-76 16-24 114-142/54-65 99 GENERAL: The patient is intubated, comfortable, not sedated. Pt is responsive in Portuguese. HEENT: 2 small lacerations on Right anterior forehead and upper nose. LUNGS: Course bhavik rales throughout. No accessory muscle use. HEART: Regular rate and rhythm, +S1/S2. ABDOMEN: Soft, nondistended, no masses. EXTREMITIES: 1+ pulses, warm, well-perfused, no edema. Laboratory Results - last 24 hr 07/31/17 07/31/17 07:05 07:05 WBC 13.6 H RBC 2.59 L Hgb 8.0 L Hct 24.2 L MCV 93.6 MCH 30.8 MCHC 32.9 RDW 12.8 Plt Count 487 H MPV 7.2 L Sodium 136 Potassium 4.0 Chloride 100 Carbon Dioxide 31 Anion Gap 5 L BUN 22 H D Creatinine 1.1 Random Glucose 122 H Calcium 7.7 L Active Medications Generic Name Dose Route Start Last Admin Trade Name Freq PRN Reason Stop Dose Admin Albuterol/Ipratropium 1 amp 07/29/17 00:00 07/31/17 18:29 Duoneb - NEB 1 amp QIDR ROSETTE Administration Bacitracin 1 applic 07/29/17 10:00 07/31/17 15:04 Bacitracin - TP 1 applic DAILY ROSETTE Administration Docusate Sodium 300 mg 07/28/17 22:00 07/30/17 22:50 Colace Liquid - GT 300 mg HS ROSETTE Administration Heparin Sodium (Porcine) 5,000 unit 07/28/17 22:00 07/31/17 15:00 Heparin - SQ 5,000 unit TID ROSETTE Administration Piperacillin Sod/Tazobactam 50 mls @ 100 mls/hr 07/29/17 02:00 07/31/17 18:46 Sod 3.375 gm/ Dextrose IVPB 100 mls/hr Q8H-IV ROSETTE Administration Sodium Chloride 1,000 mls @ 50 mls/hr 07/29/17 19:01 07/31/17 07:58 Normal Saline - IV 50 mls/hr ASDIR ROSETTE Administration Morphine Sulfate 15 mg 07/29/17 10:00 07/31/17 11:15 Msir - PO 15 mg DAILY ROSETTE Administration Prednisone 5 mg 07/29/17 10:00 07/31/17 11:15 Deltasone - GT 5 mg DAILY ROSETTE Administration Ranitidine HCl 150 mg 07/29/17 10:00 07/31/17 11:14 Zantac Oral Solution - GT 150 mg DAILY ROSETTE Administration Senna 2 tab 07/29/17 10:00 07/31/17 11:15 Senna - PO 2 tab DAILY ROSETTE Administration Trazodone HCl 100 mg 07/28/17 22:00 07/30/17 22:50 Desyrel - PO 100 mg HS ROSETTE Administration IMAGIN07/30/17 CXR -> no PTX or pneumomediastinum 07/30/17 Echo -> study of suboptimal quality so assessment could not be made. 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 # sepsis - likely 2/2 a pulmonary source, possibly vent-associated pna - Day 3 IV Zosyn - f/u sputum culture - Pneumonia Lactose flavorings compounder sputum - IVFs - continue vent with PEEP setting of 0 - spontaneous breathing trials as tolerated - pain management with Morphine daily # chronic respiratory failure - continue vent - continue nebulizers - continue Prednisone # Right PTX and pneumomediastinum - resolved # normocytic anemia - anemia of chronic disease with dilutional drop - stable # FEN - Fluids: NS @ 50 ml/hr - Electrolytes: wnl, continue to monitor - Nutrition: Jevity 1.5 @ 20 ml/hr to goal of 35 ml/hr + 35 ml/hr free water # Prophylaxis - DVT ppx with Heparin TID - GI ppx with Zantac Visit type - Emergency Visit Emergency Visit: Yes ED Registration Date: 07/28/17 Care time: The patient presented to the Emergency Department on the above date and was hospitalized for further evaluation of their emergent condition. - New Patient This patient is new to me today: No - Critical Care Critical Care patient: No
--- NOTE | 2017-07-31 19:53 | PN ---
Teaching Attending Note Name of Resident: Paula Herron ATTENDING PHYSICIAN STATEMENT I saw and evaluated the patient. I reviewed the resident's note and discussed the case with the resident. I agree with the resident's findings and plan as documented. SUBJECTIVE: Patient is better , on IV antibiotic. OBJECTIVE: Vital Signs Temperature 98.0 F 07/31/17 18:00 Pulse Rate 64 07/31/17 18:00 Respiratory Rate 16 07/31/17 18:28 Blood Pressure 132/54 07/31/17 18:00 O2 Sat by Pulse Oximetry (%) 99 07/31/17 09:34 CBCD WBC 13.6 K/mm3 (4.0-10.0) H 07/31/17 07:05 RBC 2.59 M/mm3 (4.00-5.60) L 07/31/17 07:05 Hgb 8.0 GM/dL (11.7-16.9) L 07/31/17 07:05 Hct 24.2 % (35.4-49) L 07/31/17 07:05 MCV 93.6 fl (80-96) 07/31/17 07:05 MCHC 32.9 g/dl (32.0-35.9) 07/31/17 07:05 RDW 12.8 % (11.9-15.9) 07/31/17 07:05 Plt Count 487 K/MM3 (134-434) H 07/31/17 07:05 MPV 7.2 fl (7.5-11.1) L 07/31/17 07:05 CMP Sodium 136 mmol/L (136-145) 07/31/17 07:05 Potassium 4.0 mmol/L (3.5-5.1) 07/31/17 07:05 Chloride 100 mmol/L (98-107) 07/31/17 07:05 Carbon Dioxide 31 mmol/L (21-32) 07/31/17 07:05 Anion Gap 5 (8-16) L 07/31/17 07:05 BUN 22 mg/dL (7-18) H D 07/31/17 07:05 Creatinine 1.1 mg/dL (0.7-1.3) 07/31/17 07:05 Creat Clearance w eGFR 52.72 (>60) 07/29/17 08:10 Random Glucose 122 mg/dL (74-106) H 07/31/17 07:05 Calcium 7.7 mg/dL (8.5-10.1) L 07/31/17 07:05 Total Bilirubin 0.4 mg/dL (0.2-1.0) D 07/29/17 08:10 AST 14 U/L (15-37) L D 07/29/17 08:10 ALT 8 U/L (12-78) L D 07/29/17 08:10 Alkaline Phosphatase 87 U/L (45-117) D 07/29/17 08:10 Total Protein 6.4 g/dl (6.4-8.2) 07/29/17 08:10 Albumin 2.0 g/dl (3.4-5.0) L 07/29/17 08:10 Current Medications Generic Name Dose Route Start Last Admin Trade Name Freq PRN Reason Stop Dose Admin Albuterol/Ipratropium 1 amp 07/29/17 00:00 07/31/17 18:29 Duoneb - NEB 1 amp QIDR ROSETTE Administration Bacitracin 1 applic 07/29/17 10:00 07/31/17 15:04 Bacitracin - TP 1 applic DAILY ROSETTE Administration Docusate Sodium 300 mg 07/28/17 22:00 07/30/17 22:50 Colace Liquid - GT 300 mg HS ROSETTE Administration Heparin Sodium (Porcine) 5,000 unit 07/28/17 22:00 07/31/17 15:00 Heparin - SQ 5,000 unit TID ROSETTE Administration Piperacillin Sod/Tazobactam 50 mls @ 100 mls/hr 07/29/17 02:00 07/31/17 18:46 Sod 3.375 gm/ Dextrose IVPB 100 mls/hr Q8H-IV ROSETTE Administration Sodium Chloride 1,000 mls @ 50 mls/hr 07/29/17 19:01 07/31/17 07:58 Normal Saline - IV 50 mls/hr ASDIR ROSETTE Administration Morphine Sulfate 15 mg 07/29/17 10:00 07/31/17 11:15 Msir - PO 15 mg DAILY ROSETTE Administration Prednisone 5 mg 07/29/17 10:00 07/31/17 11:15 Deltasone - GT 5 mg DAILY ROSETTE Administration Ranitidine HCl 150 mg 07/29/17 10:00 07/31/17 11:14 Zantac Oral Solution - GT 150 mg DAILY ROSETTE Administration Senna 2 tab 07/29/17 10:00 07/31/17 11:15 Senna - PO 2 tab DAILY ROSETTE Administration Trazodone HCl 100 mg 07/28/17 22:00 07/30/17 22:50 Desyrel - PO 100 mg HS ROSETTE Administration Home Medications Medication Instructions Recorded Acetaminophen [Tylenol -] 650 mg GT Q6H PRN 07/28/17 Albuterol 0.083% Nebulizer Kita 1 neb NEB Q6H 07/28/17 [Ventolin 0.083% Nebulizer Soln -] Chlorhexidine Gluconate 15 ml MM BID 07/28/17 Docusate Liquid [Colace Liquid -] 300 mg GT HS 07/28/17 Famotidine [Pepcid -] 20 mg GT AM 07/28/17 Hypromellose 0.5% Opth Soln 1 drop OU Q6H 07/28/17 [Artificial Tears] Ipratropium 0.02% Nebulizer 1 neb NEB Q6H 07/28/17 [Atrovent] Levofloxacin 750 mg GT DAILY 07/28/17 Morphine *Immediate Release* [Msir 15 mg GT BID 07/28/17 -] Oxycodone HCl 5 mg GT Q4H PRN 07/28/17 Prednisone 5 mg GT DAILY 07/28/17 Sennosides [Senna] 17.2 mg GT DAILY 07/28/17 Trazodone HCl 100 mg GT HS 07/28/17 Microbiology 07/30/17 11:00 Sputum - Endotracheal Suction W/O Vent Gram Stain - Final 07/30/17 11:00 Sputum - Endotracheal Suction W/O Vent Sputum Culture - Preliminary Lactose Fermenting Neg Bacilli 07/28/17 05:26 Blood - Peripheral Venous Blood Culture - Preliminary NO GROWTH OBTAINED AFTER 72 HOURS, INCUBATION TO CONTINUE FOR 2 DAYS. 07/28/17 05:16 Blood - Peripheral Venous Blood Culture - Preliminary NO GROWTH OBTAINED AFTER 72 HOURS, INCUBATION TO CONTINUE FOR 2 DAYS. 07/29/17 15:30 Nasopharyngeal Swab Respiratory Virus Panel - Preliminary 07/29/17 16:00 Nasopharyngeal Swab Influenza Types A,B Antigen ([facility]) - Final 07/29/17 16:00 Nasopharyngeal Swab - Final 07/29/17 16:00 Nasopharyngeal Swab Respiratory Syncytial Virus Ag - Final 07/28/17 09:42 Urine For Antigen Detection Legionella Antigen - Final 07/28/17 09:42 Urine For Antigen Detection Streptococcus pneumoniae Antigen (M - Final 07/28/17 06:30 Urine - Urine Clean Catch Urine Culture - Final NO GROWTH OBTAINED PE: per resident's note ASSESSMENT AND PLAN: Patient is a 82 y/o man with h/o Chronic respiratory failure due to emphysema and reported interstitial lung disease, s/p recent trach and chronic vent 2 weeks prior to presentation, also h/o of TB treated in [facility] , as well as chronic pain and GERD who was brought from [place] after a fall from the bed . He was found to be septic with a small pneumothorax and pneumo-mediastinum # Acute sepsis: improving , Leukocytosis trending down , cont Zosyn, discussed with ID, pending cx and sensitivity , possible discharge in am back to [place].. # CHANTE: improved, due to volume depletion ;continue IVF # AMS: due to sepsis and volume depletion back to base line. continue to monitor # Small Right pneumothorax, and pneumomediastinum: likely due to severe bolus disease and ruptured bulla spontaneously stable. # anemia of chronic disease monitor # chronic respiratory failure : cont. vent, Nebs ,on steroids. DVT Px: Heparin
[2017-07-31] MEDS ORDERED: traZODone HCL 50 MG TABLET (FP) ONE (20:34)
[2017-07-31] MEDS: traZODone HCL 100 MG TABLET (FP) PO SCH (22:40)
[2017-07-31] MEDS: DOCUSATE NA 100 MG/10 ML UNIT-DOSE CUPS GT SCH (22:41)
[2017-08-01] MEDS ORDERED: PT OWN MED DRAWER 7, Y5N ONE ×3 (01:05→18:24)
[2017-08-01] MEDS: PIPERACILLIN/TAZOB 3.375 GM 3.375 GM in DEXTROSE 5%-WATER - 50 ML IVPB SCH ×3 (01:55→18:27)
[2017-08-01] MEDS ORDERED: ACETAMINOPHEN 1000 MG/100 ML VIAL (NON FORMULARY) IVPB ONE (04:03)
[2017-08-01] MEDS: HEPARIN NA (PORCINE) 5,000 UNITS/ML 1ML VIAL SQ SCH ×3 (06:28→22:19)
[2017-08-01] MEDS: ALBUTEROL SO4 2.5/IPRATROPIUM 0.5 INH SOL 3 ML VIAL.NEB. NEB SCH ×3 (06:30→17:15)
[2017-08-01 07:20] LABS: MCH 31.3 pg (25.7-33.7); MCHC 33.7 g/dl (32.0-35.9); PLATELET COUNT 483 K/MM3 (134-434); RDW 12.9 % (11.9-15.9); WHITE BLOOD COUNT 10.7 K/mm3 (4.0-10.0)
--- NOTE | 2017-08-01 09:43 | PN ---
Teaching Attending Note Name of Resident: Paula Herron ATTENDING PHYSICIAN STATEMENT I saw and evaluated the patient. I reviewed the resident's note and discussed the case with the resident. I agree with the resident's findings and plan as documented. SUBJECTIVE: Comfortable with no acute distress. OBJECTIVE: Vital Signs Temperature 97.3 F L 08/01/17 06:11 Pulse Rate 68 08/01/17 06:11 Respiratory Rate 22 08/01/17 06:20 Blood Pressure 127/56 08/01/17 06:11 O2 Sat by Pulse Oximetry (%) 100 08/01/17 01:37 CBCD WBC 10.7 K/mm3 (4.0-10.0) H 08/01/17 06:30 RBC 2.50 M/mm3 (4.00-5.60) L 08/01/17 06:30 Hgb 7.8 GM/dL (11.7-16.9) L 08/01/17 06:30 Hct 23.3 % (35.4-49) L 08/01/17 06:30 MCV 93.0 fl (80-96) 08/01/17 06:30 MCHC 33.7 g/dl (32.0-35.9) 08/01/17 06:30 RDW 12.9 % (11.9-15.9) 08/01/17 06:30 Plt Count 483 K/MM3 (134-434) H 08/01/17 06:30 MPV 7.0 fl (7.5-11.1) L 08/01/17 06:30 CMP Sodium 136 mmol/L (136-145) 07/31/17 07:05 Potassium 4.0 mmol/L (3.5-5.1) 07/31/17 07:05 Chloride 100 mmol/L (98-107) 07/31/17 07:05 Carbon Dioxide 31 mmol/L (21-32) 07/31/17 07:05 Anion Gap 5 (8-16) L 07/31/17 07:05 BUN 22 mg/dL (7-18) H D 07/31/17 07:05 Creatinine 1.1 mg/dL (0.7-1.3) 07/31/17 07:05 Creat Clearance w eGFR 52.72 (>60) 07/29/17 08:10 Random Glucose 122 mg/dL (74-106) H 07/31/17 07:05 Calcium 7.7 mg/dL (8.5-10.1) L 07/31/17 07:05 Total Bilirubin 0.4 mg/dL (0.2-1.0) D 07/29/17 08:10 AST 14 U/L (15-37) L D 07/29/17 08:10 ALT 8 U/L (12-78) L D 07/29/17 08:10 Alkaline Phosphatase 87 U/L (45-117) D 07/29/17 08:10 Total Protein 6.4 g/dl (6.4-8.2) 07/29/17 08:10 Albumin 2.0 g/dl (3.4-5.0) L 07/29/17 08:10 Current Medications Generic Name Dose Route Start Last Admin Trade Name Freq PRN Reason Stop Dose Admin Albuterol/Ipratropium 1 amp 07/29/17 00:00 08/01/17 06:30 Duoneb - NEB 1 amp QIDR ROSETTE Administration Bacitracin 1 applic 07/29/17 10:00 07/31/17 15:04 Bacitracin - TP 1 applic DAILY ROSETTE Administration Docusate Sodium 300 mg 07/28/17 22:00 07/31/17 22:41 Colace Liquid - GT 300 mg HS ROSETTE Administration Heparin Sodium (Porcine) 5,000 unit 07/28/17 22:00 08/01/17 06:28 Heparin - SQ 5,000 unit TID ROSETTE Administration Piperacillin Sod/Tazobactam 50 mls @ 100 mls/hr 07/29/17 02:00 08/01/17 01:55 Sod 3.375 gm/ Dextrose IVPB 100 mls/hr Q8H-IV ROSETTE Administration Sodium Chloride 1,000 mls @ 50 mls/hr 07/29/17 19:01 07/31/17 22:39 Normal Saline - IV 50 mls/hr ASDIR ROSETTE Administration Morphine Sulfate 15 mg 07/29/17 10:00 07/31/17 11:15 Msir - PO 15 mg DAILY ROSETTE Administration Prednisone 5 mg 07/29/17 10:00 07/31/17 11:15 Deltasone - GT 5 mg DAILY ROSETTE Administration Ranitidine HCl 150 mg 07/29/17 10:00 07/31/17 11:14 Zantac Oral Solution - GT 150 mg DAILY ROSETTE Administration Senna 2 tab 07/29/17 10:00 07/31/17 11:15 Senna - PO 2 tab DAILY ROSETTE Administration Trazodone HCl 100 mg 07/28/17 22:00 07/31/17 22:40 Desyrel - PO 100 mg HS ROSETTE Administration Home Medications Medication Instructions Recorded Acetaminophen [Tylenol -] 650 mg GT Q6H PRN 07/28/17 Albuterol 0.083% Nebulizer Kita 1 neb NEB Q6H 07/28/17 [Ventolin 0.083% Nebulizer Soln -] Chlorhexidine Gluconate 15 ml MM BID 07/28/17 Docusate Liquid [Colace Liquid -] 300 mg GT HS 07/28/17 Famotidine [Pepcid -] 20 mg GT AM 07/28/17 Hypromellose 0.5% Opth Soln 1 drop OU Q6H 07/28/17 [Artificial Tears] Ipratropium 0.02% Nebulizer 1 neb NEB Q6H 07/28/17 [Atrovent] Levofloxacin 750 mg GT DAILY 07/28/17 Morphine *Immediate Release* [Msir 15 mg GT BID 07/28/17 -] Oxycodone HCl 5 mg GT Q4H PRN 07/28/17 Prednisone 5 mg GT DAILY 07/28/17 Sennosides [Senna] 17.2 mg GT DAILY 07/28/17 Trazodone HCl 100 mg GT HS 07/28/17 ASSESSMENT AND PLAN: 07/30/17 11:00 Sputum - Endotracheal Suction W/O Vent Gram Stain - Final 07/30/17 11:00 Sputum - Endotracheal Suction W/O Vent Sputum Culture - Preliminary Lactose Fermenting Neg Bacilli 07/28/17 05:26 Blood - Peripheral Venous Blood Culture - Preliminary NO GROWTH OBTAINED AFTER 72 HOURS, INCUBATION TO CONTINUE FOR 2 DAYS. 07/28/17 05:16 Blood - Peripheral Venous Blood Culture - Preliminary NO GROWTH OBTAINED AFTER 72 HOURS, INCUBATION TO CONTINUE FOR 2 DAYS. 07/29/17 15:30 Nasopharyngeal Swab Respiratory Virus Panel - Preliminary 07/29/17 16:00 Nasopharyngeal Swab Influenza Types A,B Antigen ([facility]) - Final 07/29/17 16:00 Nasopharyngeal Swab - Final 07/29/17 16:00 Nasopharyngeal Swab Respiratory Syncytial Virus Ag - Final 07/28/17 09:42 Urine For Antigen Detection Legionella Antigen - Final 07/28/17 09:42 Urine For Antigen Detection Streptococcus pneumoniae Antigen (M - Final 07/28/17 06:30 Urine - Urine Clean Catch Urine Culture - Final NO GROWTH OBTAINED PE: per resident's note ASSESSMENT AND PLAN: Patient is a 82 y/o man with h/o Chronic respiratory failure due to emphysema and reported interstitial lung disease, s/p recent trach and chronic vent 2 weeks prior to presentation, also h/o of TB treated in [facility] , as well as chronic pain and GERD who was brought from [place] after a fall from the bed . He was found to be septic with a small pneumothorax and pneumo-mediastinum # Acute sepsis: improving , Leukocytosis trending down , cont Zosyn # 4, discussed with ID to continue 2 more day s of IV antibiotic. will discharge the patient back to rehab. once accepted back to rehab. # CHANTE: improved, due to volume depletion ;continue IVF # AMS: due to sepsis and volume depletion back to his base line. # Small Right pneumothorax, and pneumomediastinum: likely due to severe bolus disease and ruptured bulla spontaneously stable. # anemia of chronic disease , hemoglobin 7.8 stable # chronic respiratory failure : cont. vent, Nebs ,on steroids. DVT Px: Heparin
[2017-08-01] MEDS: predniSONE 5 MG TABLET (UD) GT SCH (11:08)
[2017-08-01] MEDS: RANITIDINE HCL 150 MG/10 ML UNIT-DOSE GT SCH (11:08)
[2017-08-01] MEDS: morphine SULFATE IMMEDIATE RELEASE 30 MG TAB PO SCH (11:08)
[2017-08-01] MEDS: SENNOSIDES 8.6MG TABLET (FP) PO SCH (11:28)
--- NOTE | 2017-08-01 13:10 | PN ---
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 07/28/17 05:16 Blood - Peripheral Venous Blood Culture - Preliminary NO GROWTH OBTAINED AFTER 96 HOURS, INCUBATION TO CONTINUE FOR 1 DAYS. 07/29/17 15:30 Nasopharyngeal Swab Respiratory Virus Panel - Preliminary 07/29/17 16:00 Nasopharyngeal Swab Influenza Types A,B Antigen ([facility]) - Final 07/29/17 16:00 Nasopharyngeal Swab - Final 07/29/17 16:00 Nasopharyngeal Swab Respiratory Syncytial Virus Ag - Final 07/28/17 09:42 Urine For Antigen Detection Legionella Antigen - Final 07/28/17 09:42 Urine For Antigen Detection Streptococcus pneumoniae Antigen (M - Final 07/28/17 06:30 Urine - Urine Clean Catch Urine Culture - Final NO GROWTH OBTAINED imp/reccd 82 year old man with chronic repiratory failure, recently admitted to the [place] from [facility] with trach and PEG-on vent admitted s/p fall s/p fall r/o pneumonia chronic resp failure ILD f/u cultures, labs wbc improving continue zosyn day #5/ much more alert d/w Hospitalist service suspect the ecoli esbl is a colonizer- contact isolation, no need to treat as he has improved on empiric Zosyn please call back if needed Problem List - Problems (1) Fall from bed Code(s): W06.XXXA - FALL FROM BED, INITIAL ENCOUNTER (2) Pneumonia Code(s): J18.9 - PNEUMONIA, UNSPECIFIED ORGANISM (3) Chronic respiratory failure Code(s): J96.10 - CHRONIC RESPIRATORY FAILURE, UNSP W HYPOXIA OR HYPERCAPNIA
--- NOTE | 2017-08-01 13:41 | PN ---
Progress Note, Physician History of Present Illness: pulmonry awake,alert on vent support,-resp distress - Current Medication List Current Medications: Active Medications Albuterol/Ipratropium (Duoneb -) 1 amp NEB QIDR [facility] Last Admin: 08/01/17 11:50 Dose: 1 amp Bacitracin (Bacitracin -) 1 applic TP DAILY [facility] Last Admin: 07/31/17 15:04 Dose: 1 applic Docusate Sodium (Colace Liquid -) 300 mg GT HS [facility] Last Admin: 07/31/17 22:41 Dose: 300 mg Heparin Sodium (Porcine) (Heparin -) 5,000 unit SQ TID [facility] Last Admin: 08/01/17 06:28 Dose: 5,000 unit Piperacillin Sod/Tazobactam (Sod 3.375 gm/ Dextrose) 50 mls @ 100 mls/hr IVPB Q8H-IV [facility] Last Admin: 08/01/17 11:29 Dose: 100 mls/hr Sodium Chloride (Normal Saline -) 1,000 mls @ 50 mls/hr IV ASDIR [facility] Last Admin: 07/31/17 22:39 Dose: 50 mls/hr Morphine Sulfate (Msir -) 15 mg PO DAILY [facility] Last Admin: 08/01/17 11:08 Dose: 15 mg Prednisone (Deltasone -) 5 mg GT DAILY [facility] Last Admin: 08/01/17 11:08 Dose: 5 mg Ranitidine HCl (Zantac Oral Solution -) 150 mg GT DAILY [facility] Last Admin: 08/01/17 11:08 Dose: 150 mg Senna (Senna -) 2 tab PO DAILY [facility] Last Admin: 08/01/17 11:28 Dose: Not Given Trazodone HCl (Desyrel -) 100 mg PO HS [facility] Last Admin: 07/31/17 22:40 Dose: 100 mg - Objective Vital Signs: Vital Signs Temperature 97.3 F L 08/01/17 06:11 Pulse Rate 68 08/01/17 11:10 Respiratory Rate 20 08/01/17 11:10 Blood Pressure 126/58 08/01/17 11:10 O2 Sat by Pulse Oximetry (%) 99 08/01/17 10:23 Constitutional: Yes: Calm, Thin Eyes: Yes: WNL HENT: Yes: WNL Neck: Yes: Supple (trach) Cardiovascular: Yes: Regular Rate and Rhythm, S1, S2 Respiratory: Yes: Diminished Gastrointestinal: Yes: Normal Bowel Sounds, Soft Extremities: Yes: WNL Edema: No Labs: CBC, BMP 08/01/17 06:30 Problem List - Problems (1) Pneumothorax Code(s): J93.9 - PNEUMOTHORAX, UNSPECIFIED (2) Ventilator barotrauma Code(s): T88.9XXA - COMPLICATION OF SURGICAL AND MEDICAL CARE, UNSP, INIT ENCNTR (3) Interstitial lung disease Code(s): J84.9 - INTERSTITIAL PULMONARY DISEASE, UNSPECIFIED (4) Chronic respiratory failure Code(s): J96.10 - CHRONIC RESPIRATORY FAILURE, UNSP W HYPOXIA OR HYPERCAPNIA (5) Fall from bed Code(s): W06.XXXA - FALL FROM BED, INITIAL ENCOUNTER Assessment/Plan ASSESSMENT AND PLAN: Acute on Chronic Respiratory Failure Loculated Pneumothorax Pneumomediastinum Interstitial Lung Disease r/o Pnuemonia Acute Kidney Injury - pain control - keep PEEP 0 - repeat CXR - empiric antibiotics - inhaled bronchodilators - O2 to keep SpO2 >90% - IVF - monitor urine output, creatinine - enteral feeds - spontaneous breathing trials as tolerated - DVT/GI prophylaxis DR ENRIQUE
[2017-08-01] MEDS: BACITRACIN 15 GM TUBE TOPICAL OINTMENT TP SCH (13:47)
[2017-08-01] MEDS: SODIUM CHLORIDE 1,000 ML IV SCH (19:01)
--- NOTE | 2017-08-01 20:12 | PN ---
Physical Exam: SUBJECTIVE: Patient seen and examined. Pt more alert today. No fever, chills. No events overnight. OBJECTIVE: Vital Signs Period Temp Pulse Resp BP Sys/Fatima Pulse Ox Last 24 Hr 97.3 F-98.8 F 68-72 16-41 110-127/56-58 99-100 GENERAL: The patient is intubated, comfortable, not sedated. Pt is alert. HEENT: 2 small lacerations on Right anterior forehead and upper nose. NECK: wearing soft neck collar. Trach in place. LUNGS: Decreased breath sounds at bhavik bases. No accessory muscle use. HEART: Regular rate and rhythm, +S1/S2. ABDOMEN: Soft, nondistended, no masses. EXTREMITIES: Warm, well-perfused, no edema. Laboratory Results - last 24 hr 08/01/17 06:30 WBC 10.7 H RBC 2.50 L Hgb 7.8 L Hct 23.3 L MCV 93.0 MCH 31.3 MCHC 33.7 RDW 12.9 Plt Count 483 H MPV 7.0 L Active Medications Generic Name Dose Route Start Last Admin Trade Name Freq PRN Reason Stop Dose Admin Albuterol/Ipratropium 1 amp 07/29/17 00:00 08/01/17 17:15 Duoneb - NEB 1 amp QIDR ROSETTE Administration Bacitracin 1 applic 07/29/17 10:00 08/01/17 13:47 Bacitracin - TP 1 applic DAILY [facility]ETTE Administration Docusate Sodium 300 mg 07/28/17 22:00 07/31/17 22:41 Colace Liquid - GT 300 mg HS ROSETTE Administration Heparin Sodium (Porcine) 5,000 unit 07/28/17 22:00 08/01/17 13:50 Heparin - SQ 5,000 unit TID ROSETTE Administration Piperacillin Sod/Tazobactam 50 mls @ 100 mls/hr 07/29/17 02:00 08/01/17 18:27 Sod 3.375 gm/ Dextrose IVPB 100 mls/hr Q8H-IV ROSETTE Administration Sodium Chloride 1,000 mls @ 50 mls/hr 07/29/17 19:01 07/31/17 22:39 Normal Saline - IV 50 mls/hr ASDIR ROSETTE Administration Morphine Sulfate 15 mg 07/29/17 10:00 08/01/17 11:08 Msir - PO 15 mg DAILY [facility]ETTE Administration Prednisone 5 mg 07/29/17 10:00 08/01/17 11:08 Deltasone - GT 5 mg DAILY ROSETTE Administration Ranitidine HCl 150 mg 07/29/17 10:00 08/01/17 11:08 Zantac Oral Solution - GT 150 mg DAILY ROSETTE Administration Senna 2 tab 07/29/17 10:00 08/01/17 11:28 Senna - PO Not Given DAILY ROSETTE Trazodone HCl 100 mg 07/28/17 22:00 07/31/17 22:40 Desyrel - PO 100 mg HS ROSETTE Administration ASSESSMENT/PLAN: 82yo M with PMH of chronic respiratory failure 2/2 emphysema, s/p recent trach and chronic vent x 2 weeks, presented s/p a fall from the bed, found to be septic with a small pneumothorax and pneumomediastinum. # sepsis - likely 2/2 a pulmonary source, possibly vent-associated pna - leukocytosis improving - Day 4 of IV Zosyn - IVFs - continue vent with PEEP setting of 0 - spontaneous breathing trials as tolerated - pain management with Morphine daily # chronic respiratory failure - continue vent - continue Duoneb and Prednisone # normocytic anemia - anemia of chronic disease with dilutional drop - stable # FEN - Fluids: NS @ 50 ml/hr - Electrolytes: wnl, continue to monitor - Nutrition: Jevity 1.5 @ 20 ml/hr to goal of 35 ml/hr + 35 ml/hr free water # Prophylaxis - DVT ppx with Heparin TID - GI ppx with Zantac # Dispo - Stable for discharge. Unable to be discharged today 2/2 insurance issue approving transportation. Visit type - Emergency Visit Emergency Visit: Yes ED Registration Date: 07/28/17 Care time: The patient presented to the Emergency Department on the above date and was hospitalized for further evaluation of their emergent condition. - New Patient This patient is new to me today: No - Critical Care Critical Care patient: No
[2017-08-01] MEDS ORDERED: traZODone HCL 50 MG TABLET (FP) ONE (20:26)
[2017-08-01] MEDS: DOCUSATE NA 100 MG/10 ML UNIT-DOSE CUPS GT SCH (22:17)
[2017-08-01] MEDS: traZODone HCL 100 MG TABLET (FP) PO SCH (22:18)
[2017-08-02] MEDS: ALBUTEROL SO4 2.5/IPRATROPIUM 0.5 INH SOL 3 ML VIAL.NEB. NEB SCH ×4 (00:03→18:19)
[2017-08-02] MEDS: PIPERACILLIN/TAZOB 3.375 GM 3.375 GM in DEXTROSE 5%-WATER - 50 ML IVPB SCH ×3 (03:00→17:33)
[2017-08-02] MEDS: HEPARIN NA (PORCINE) 5,000 UNITS/ML 1ML VIAL SQ SCH ×3 (06:27→21:35)
[2017-08-02 08:21] LABS: MCH 30.9 pg (25.7-33.7); MCHC 33.1 g/dl (32.0-35.9); MEAN CELL VOLUME 93.3 fl (80-96); MEAN PLT VOLUME 7.1 fl (7.5-11.1); PLATELET COUNT 522 K/MM3 (134-434); RDW 13.4 % (11.9-15.9); WHITE BLOOD COUNT 13.7 K/mm3 (4.0-10.0)
[2017-08-02 08:50] LABS: ANION GAP 5 (8-16); CALCIUM 7.7 mg/dL (8.5-10.1); CO2 32 mmol/L (21-32); CREATININE 1.1 mg/dL (0.7-1.3); GLUCOSE,RANDOM 131 mg/dL (74-106)
--- NOTE | 2017-08-02 09:58 | PN ---
Physical Exam: SUBJECTIVE: Patient seen and examined Patient is feeling better, no acute distress. No fever or chills. OBJECTIVE: Vital Signs Temperature 98.9 F 08/02/17 06:00 Pulse Rate 78 08/02/17 06:00 Respiratory Rate 29 H 08/02/17 06:51 Blood Pressure 125/56 08/02/17 06:00 O2 Sat by Pulse Oximetry (%) 100 08/01/17 21:00 GENERAL: The patient is awake, alert, with no acute distress. HEAD: Normal with no signs of trauma. EYES: PERRL, extraocular movements intact, sclera anicteric, conjunctiva clear. ENT: Ears normal, oropharynx clear without exudates, moist mucous membranes. NECK: Trachea midline, positive for trach. LUNGS: Breath sounds equal, clear to auscultation bilaterally, no wheezes, no crackles, no accessory muscle use. HEART: Regular rate and rhythm, S1, S2 positive, No rub or gallop. ABDOMEN: Soft, nontender, nondistended, normoactive bowel sounds, no guarding, no rebound, no hepatosplenomegaly, no masses. EXTREMITIES: 2+ pulses, warm, well-perfused, no edema. NEUROLOGICAL: Cranial nerves II through XII grossly intact. Normal speech, gait not observed. PSYCH: Normal mood, normal affect. SKIN: Warm, dry, normal turgor, no rashes or lesions noted CBCD WBC 13.7 K/mm3 (4.0-10.0) H 08/02/17 07:00 RBC 2.66 M/mm3 (4.00-5.60) L 08/02/17 07:00 Hgb 8.2 GM/dL (11.7-16.9) L 08/02/17 07:00 Hct 24.8 % (35.4-49) L 08/02/17 07:00 MCV 93.3 fl (80-96) 08/02/17 07:00 MCHC 33.1 g/dl (32.0-35.9) 08/02/17 07:00 RDW 13.4 % (11.9-15.9) 08/02/17 07:00 Plt Count 522 K/MM3 (134-434) H 08/02/17 07:00 MPV 7.1 fl (7.5-11.1) L 08/02/17 07:00 CMP Sodium 139 mmol/L (136-145) 08/02/17 07:00 Potassium 4.2 mmol/L (3.5-5.1) 08/02/17 07:00 Chloride 102 mmol/L (98-107) 08/02/17 07:00 Carbon Dioxide 32 mmol/L (21-32) 08/02/17 07:00 Anion Gap 5 (8-16) L 08/02/17 07:00 BUN 17 mg/dL (7-18) D 08/02/17 07:00 Creatinine 1.1 mg/dL (0.7-1.3) 08/02/17 07:00 Creat Clearance w eGFR 52.72 (>60) 07/29/17 08:10 Random Glucose 131 mg/dL (74-106) H 08/02/17 07:00 Calcium 7.7 mg/dL (8.5-10.1) L 08/02/17 07:00 Total Bilirubin 0.4 mg/dL (0.2-1.0) D 07/29/17 08:10 AST 14 U/L (15-37) L D 07/29/17 08:10 ALT 8 U/L (12-78) L D 07/29/17 08:10 Alkaline Phosphatase 87 U/L (45-117) D 07/29/17 08:10 Total Protein 6.4 g/dl (6.4-8.2) 07/29/17 08:10 Albumin 2.0 g/dl (3.4-5.0) L 07/29/17 08:10 Active Medications Generic Name Dose Route Start Last Admin Trade Name Freq PRN Reason Stop Dose Admin Albuterol/Ipratropium 1 amp 07/29/17 00:00 08/02/17 06:49 Duoneb - NEB 1 amp QIDR [facility] Administration Bacitracin 1 applic 07/29/17 10:00 08/01/17 13:47 Bacitracin - TP 1 applic DAILY [facility] Administration Docusate Sodium 300 mg 07/28/17 22:00 08/01/17 22:17 Colace Liquid - GT Not Given HS [facility] Heparin Sodium (Porcine) 5,000 unit 07/28/17 22:00 08/02/17 06:27 Heparin - SQ 5,000 unit TID [facility] Administration Piperacillin Sod/Tazobactam 50 mls @ 100 mls/hr 07/29/17 02:00 08/02/17 03:00 Sod 3.375 gm/ Dextrose IVPB 100 mls/hr Q8H-IV [facility] Administration Sodium Chloride 1,000 mls @ 50 mls/hr 07/29/17 19:01 08/01/17 19:01 Normal Saline - IV Not Given ASDIR [facility] Morphine Sulfate 15 mg 07/29/17 10:00 08/01/17 11:08 Msir - PO 15 mg DAILY [facility] Administration Prednisone 5 mg 07/29/17 10:00 08/01/17 11:08 Deltasone - GT 5 mg DAILY [facility] Administration Ranitidine HCl 150 mg 07/29/17 10:00 08/01/17 11:08 Zantac Oral Solution - GT 150 mg DAILY [facility] Administration Senna 2 tab 07/29/17 10:00 08/01/17 11:28 Senna - PO Not Given DAILY [facility] Trazodone HCl 100 mg 07/28/17 22:00 08/01/17 22:18 Desyrel - PO 100 mg HS [facility] Administration Home Medications Medication Instructions Recorded Acetaminophen [Tylenol .Regular 650 mg GT Q6H PRN 07/28/17 Strength -] Albuterol 0.083% Nebulizer Kita 1 neb NEB Q6H 07/28/17 [Ventolin 0.083% Nebulizer Soln -] Chlorhexidine Gluconate 15 ml MM BID 07/28/17 Docusate Liquid [Colace Liquid -] 300 mg GT HS 07/28/17 Famotidine [Pepcid -] 20 mg GT AM 07/28/17 Hypromellose 0.5% Opth Soln 1 drop OU Q6H 07/28/17 [Artificial Tears] Ipratropium 0.02% Nebulizer 1 neb NEB Q6H 07/28/17 [Atrovent 0.02% Nebulizer -] Morphine *Immediate Release* [Msir 15 mg GT BID 07/28/17 -] Oxycodone HCl 5 mg GT Q4H PRN 07/28/17 Prednisone 5 mg GT DAILY 07/28/17 Sennosides [Senna] 17.2 mg GT DAILY 07/28/17 Trazodone HCl 100 mg GT HS 07/28/17 Albuterol 2.5/Ipratropium 0.5 1 amp NEB QIDR amp 08/01/17 [Duoneb -] Bacitracin - [Bacitracin Topical 1 applic TP DAILY tube 08/01/17 Ointment -] Piperacillin/Tazob 3.375 gm [Zosyn 3.375 gm IVPB Q8H-IV vial 08/01/17 -] ASSESSMENT/PLAN: Patient is a 82 y/o man with h/o 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 He was found to be septic with a small pneumothorax and pneumo-mediastinum # Acute sepsis: improving , Leukocytosis trending down , cont Zosyn # 5, discussed with ID to continue 3 more day s of IV antibiotic. will discharge the patient back to rehab. Patient s/o having the neck collar. As per son did not have the neck collar prior to this admission. Discussed with the son, discussed with Neuro should try soft collar. if tolerates it to keep it on if not to remove it. # CHANTE: improved, due to volume depletion ;continue IVF # AMS: due to sepsis and volume depletion back to his base line. # Small Right pneumothorax, and pneumomediastinum: likely due to severe bolus disease and ruptured bulla spontaneously stable. # anemia of chronic disease , hemoglobin 7.8 -->8.2 stable # chronic respiratory failure : cont. vent, Nebs ,on steroids continue. DVT Px: Heparin Visit type - Emergency Visit Emergency Visit: Yes ED Registration Date: 07/28/17 Care time: The patient presented to the Emergency Department on the above date and was hospitalized for further evaluation of their emergent condition. - New Patient This patient is new to me today: No - Critical Care Critical Care patient: No
[2017-08-02] MEDS ORDERED: PT OWN MED DRAWER 7, Y5N ONE (11:21)
[2017-08-02] MEDS: SENNOSIDES 8.6MG TABLET (FP) PO SCH (11:23)
[2017-08-02] MEDS: RANITIDINE HCL 150 MG/10 ML UNIT-DOSE GT SCH (11:28)
[2017-08-02] MEDS: morphine SULFATE IMMEDIATE RELEASE 30 MG TAB PO SCH (11:28)
[2017-08-02] MEDS: BACITRACIN 15 GM TUBE TOPICAL OINTMENT TP SCH (11:29)
[2017-08-02] MEDS: predniSONE 5 MG TABLET (UD) GT SCH (11:29)
--- NOTE | 2017-08-02 15:58 | PN ---
Progress Note (short form) - Note Progress Note: PULMONARY Vented with PEEP 0. Last Vital Signs Temp Pulse Resp BP Pulse Ox 98.5 F 79 18 112/56 100 08/02/17 13:53 08/02/17 13:53 08/02/17 14:05 08/02/17 13:53 08/02/17 09:00 Gen: vented, arousable Heart: RRR Lung: scattered rhonchi Abd: soft, nontender Ext: no edema CBC, BMP 08/02/17 07:00 08/02/17 07:00 Active Medications Albuterol/Ipratropium (Duoneb -) 1 amp NEB QIDR [facility] Last Admin: 08/02/17 12:57 Dose: 1 amp Bacitracin (Bacitracin -) 1 applic TP DAILY [facility] Last Admin: 08/02/17 11:29 Dose: 1 applic Docusate Sodium (Colace Liquid -) 300 mg GT HS [facility] Last Admin: 08/01/17 22:17 Dose: Not Given Heparin Sodium (Porcine) (Heparin -) 5,000 unit SQ TID [facility] Last Admin: 08/02/17 15:36 Dose: 5,000 unit Piperacillin Sod/Tazobactam (Sod 3.375 gm/ Dextrose) 50 mls @ 100 mls/hr IVPB Q8H-IV [facility] Last Admin: 08/02/17 11:28 Dose: 100 mls/hr Sodium Chloride (Normal Saline -) 1,000 mls @ 50 mls/hr IV ASDIR [facility] Last Admin: 08/01/17 19:01 Dose: Not Given Morphine Sulfate (Msir -) 15 mg PO DAILY [facility] Last Admin: 08/02/17 11:28 Dose: 15 mg Prednisone (Deltasone -) 5 mg GT DAILY [facility] Last Admin: 08/02/17 11:29 Dose: 5 mg Ranitidine HCl (Zantac Oral Solution -) 150 mg GT DAILY [facility] Last Admin: 08/02/17 11:28 Dose: 150 mg Senna (Senna -) 2 tab PO DAILY [facility] Last Admin: 08/02/17 11:23 Dose: Not Given Trazodone HCl (Desyrel -) 100 mg PO HS [facility] Last Admin: 08/01/17 22:18 Dose: 100 mg A/P Acute on Chronic Respiratory Failure Loculated Pneumothorax Pneumomediastinum Interstitial Lung Disease r/o Pnuemonia Acute Kidney Injury - pain control - keep PEEP 0 - empiric antibiotics - suspect majority of findings on CT chest are chronic - inhaled bronchodilators - O2 to keep SpO2 >90% - monitor urine output, creatinine - enteral feeds - spontaneous breathing trials as tolerated - DVT/GI prophylaxis
[2017-08-02] MEDS: SODIUM CHLORIDE 1,000 ML IV SCH (18:15)
[2017-08-02] MEDS ORDERED: traZODone HCL 50 MG TABLET (FP) ONE (20:49)
[2017-08-02] MEDS: traZODone HCL 100 MG TABLET (FP) PO SCH (21:33)
[2017-08-02] MEDS: DOCUSATE NA 100 MG/10 ML UNIT-DOSE CUPS GT SCH (21:33)
[2017-08-03] MEDS: ALBUTEROL SO4 2.5/IPRATROPIUM 0.5 INH SOL 3 ML VIAL.NEB. NEB SCH ×5 (00:10→23:28)
[2017-08-03] MEDS: SODIUM CHLORIDE 1,000 ML IV SCH ×3 (01:00→21:05)
[2017-08-03] MEDS: PIPERACILLIN/TAZOB 3.375 GM 3.375 GM in DEXTROSE 5%-WATER - 50 ML IVPB SCH ×3 (01:53→17:32)
[2017-08-03] MEDS: HEPARIN NA (PORCINE) 5,000 UNITS/ML 1ML VIAL SQ SCH ×3 (06:16→22:44)
[2017-08-03] MEDS ORDERED: PT OWN MED DRAWER 7, Y5N ONE (10:55)
[2017-08-03] MEDS: predniSONE 5 MG TABLET (UD) GT SCH (11:08)
[2017-08-03] MEDS: SENNOSIDES 8.6MG TABLET (FP) PO SCH (11:08)
[2017-08-03] MEDS: morphine SULFATE IMMEDIATE RELEASE 30 MG TAB PO SCH (11:09)
[2017-08-03] MEDS: RANITIDINE HCL 150 MG/10 ML UNIT-DOSE GT SCH (11:10)
[2017-08-03] MEDS: BACITRACIN 15 GM TUBE TOPICAL OINTMENT TP SCH (11:11)
--- NOTE | 2017-08-03 13:17 | PN ---
Progress Note (short form) - Note Progress Note: PULMONARY Vented with PEEP 0. No fevers recorded. Last Vital Signs Temp Pulse Resp BP Pulse Ox 98 F 770 H 18 122/67 99 08/03/17 10:52 08/03/17 10:52 08/03/17 10:52 08/03/17 10:52 08/03/17 09:00 Gen: vented, arousable Heart: RRR Lung: scattered rhonchi Abd: soft, nontender Ext: no edema CBC, BMP 08/02/17 07:00 08/02/17 07:00 Active Medications Albuterol/Ipratropium (Duoneb -) 1 amp NEB QIDR [facility] Last Admin: 08/03/17 11:11 Dose: 1 amp Bacitracin (Bacitracin -) 1 applic TP DAILY [facility] Last Admin: 08/03/17 11:11 Dose: 1 applic Docusate Sodium (Colace Liquid -) 300 mg GT HS [facility] Last Admin: 08/02/17 21:33 Dose: Not Given Heparin Sodium (Porcine) (Heparin -) 5,000 unit SQ TID [facility] Last Admin: 08/03/17 06:16 Dose: 5,000 unit Piperacillin Sod/Tazobactam (Sod 3.375 gm/ Dextrose) 50 mls @ 100 mls/hr IVPB Q8H-IV [facility] Last Admin: 08/03/17 11:11 Dose: 100 mls/hr Sodium Chloride (Normal Saline -) 1,000 mls @ 50 mls/hr IV ASDIR [facility] Last Admin: 08/03/17 01:00 Dose: 50 mls/hr Morphine Sulfate (Msir -) 15 mg PO DAILY [facility] Last Admin: 08/03/17 11:09 Dose: 15 mg Prednisone (Deltasone -) 5 mg GT DAILY [facility] Last Admin: 08/03/17 11:08 Dose: 5 mg Ranitidine HCl (Zantac Oral Solution -) 150 mg GT DAILY [facility] Last Admin: 08/03/17 11:10 Dose: 150 mg Senna (Senna -) 2 tab PO DAILY [facility] Last Admin: 08/03/17 11:08 Dose: 2 tab Trazodone HCl (Desyrel -) 100 mg PO HS [facility] Last Admin: 08/02/17 21:33 Dose: 100 mg A/P Acute on Chronic Respiratory Failure Loculated Pneumothorax Pneumomediastinum Interstitial Lung Disease r/o Pnuemonia Acute Kidney Injury - pain control - keep PEEP 0 - complete empiric antibiotics - suspect majority of findings on CT chest are chronic - inhaled bronchodilators - O2 to keep SpO2 >90% - monitor urine output, creatinine - enteral feeds - spontaneous breathing trials as tolerated - DVT/GI prophylaxis
[2017-08-03] MEDS ORDERED: ALBUTEROL SO4 2.5/IPRATROPIUM 0.5 INH SOL 3 ML VIAL.NEB. NEB ONE (17:58)
--- NOTE | 2017-08-03 18:05 | PN ---
Progress Note (short form) - Note Progress Note: Patient is comfortable with no acute distress, no shortness of breath. changed Collar to a smaller size. Vital Signs Temperature 98.6 F 08/03/17 14:35 Pulse Rate 76 08/03/17 14:35 Respiratory Rate 21 08/03/17 14:10 Blood Pressure 120/65 08/03/17 14:35 O2 Sat by Pulse Oximetry (%) 99 08/03/17 09:00 GENERAL: The patient is awake, alert, with no acute distress. HEAD: Normal with no signs of trauma. EYES: PERRL, extraocular movements intact, sclera anicteric, conjunctiva clear. ENT: Ears normal, oropharynx clear without exudates, moist mucous membranes. NECK: Trachea midline, positive for trach. soft collar positive was changed from medium size. LUNGS: Breath sounds equal, positive for trach. no wheezes, no crackles, no accessory muscle use. HEART: Regular rate and rhythm, S1, S2 positive, No rub or gallop. ABDOMEN: Soft, nontender, nondistended, normoactive bowel sounds, no guarding, no rebound, no hepatosplenomegaly, no masses. EXTREMITIES: 2+ pulses, warm, well-perfused, no edema. NEUROLOGICAL: Cranial nerves II through XII grossly intact. Normal speech, gait not observed. PSYCH: Normal mood, normal affect. SKIN: Warm, dry, normal turgor, no rashes or lesions noted CBCD WBC 13.7 K/mm3 (4.0-10.0) H 08/02/17 07:00 RBC 2.66 M/mm3 (4.00-5.60) L 08/02/17 07:00 Hgb 8.2 GM/dL (11.7-16.9) L 08/02/17 07:00 Hct 24.8 % (35.4-49) L 08/02/17 07:00 MCV 93.3 fl (80-96) 08/02/17 07:00 MCHC 33.1 g/dl (32.0-35.9) 08/02/17 07:00 RDW 13.4 % (11.9-15.9) 08/02/17 07:00 Plt Count 522 K/MM3 (134-434) H 08/02/17 07:00 MPV 7.1 fl (7.5-11.1) L 08/02/17 07:00 CMP Sodium 139 mmol/L (136-145) 08/02/17 07:00 Potassium 4.2 mmol/L (3.5-5.1) 08/02/17 07:00 Chloride 102 mmol/L (98-107) 08/02/17 07:00 Carbon Dioxide 32 mmol/L (21-32) 08/02/17 07:00 Anion Gap 5 (8-16) L 08/02/17 07:00 BUN 17 mg/dL (7-18) D 08/02/17 07:00 Creatinine 1.1 mg/dL (0.7-1.3) 08/02/17 07:00 Creat Clearance w eGFR 52.72 (>60) 07/29/17 08:10 Random Glucose 131 mg/dL (74-106) H 08/02/17 07:00 Calcium 7.7 mg/dL (8.5-10.1) L 08/02/17 07:00 Total Bilirubin 0.4 mg/dL (0.2-1.0) D 07/29/17 08:10 AST 14 U/L (15-37) L D 07/29/17 08:10 ALT 8 U/L (12-78) L D 07/29/17 08:10 Alkaline Phosphatase 87 U/L (45-117) D 07/29/17 08:10 Total Protein 6.4 g/dl (6.4-8.2) 07/29/17 08:10 Albumin 2.0 g/dl (3.4-5.0) L 07/29/17 08:10 Current Medications Generic Name Dose Route Start Last Admin Trade Name Freq PRN Reason Stop Dose Admin Albuterol/Ipratropium 1 amp 07/29/17 00:00 08/03/17 11:11 Duoneb - NEB 1 amp QIDR [facility] Administration Bacitracin 1 applic 07/29/17 10:00 08/03/17 11:11 Bacitracin - TP 1 applic DAILY [facility] Administration Docusate Sodium 300 mg 07/28/17 22:00 08/02/17 21:33 Colace Liquid - GT Not Given HS [facility] Heparin Sodium (Porcine) 5,000 unit 07/28/17 22:00 08/03/17 14:40 Heparin - SQ 5,000 unit TID [facility] Administration Piperacillin Sod/Tazobactam 50 mls @ 100 mls/hr 07/29/17 02:00 08/03/17 17:32 Sod 3.375 gm/ Dextrose IVPB 100 mls/hr Q8H-IV [facility] Administration Sodium Chloride 1,000 mls @ 50 mls/hr 07/29/17 19:01 08/03/17 01:00 Normal Saline - IV 50 mls/hr ASDIR [facility] Administration Morphine Sulfate 15 mg 07/29/17 10:00 08/03/17 11:09 Msir - PO 15 mg DAILY [facility] Administration Prednisone 5 mg 07/29/17 10:00 08/03/17 11:08 Deltasone - GT 5 mg DAILY [facility] Administration Ranitidine HCl 150 mg 07/29/17 10:00 08/03/17 11:10 Zantac Oral Solution - GT 150 mg DAILY [facility] Administration Senna 2 tab 07/29/17 10:00 08/03/17 11:08 Senna - PO 2 tab DAILY [facility] Administration Trazodone HCl 100 mg 07/28/17 22:00 08/02/17 21:33 Desyrel - PO 100 mg HS [facility] Administration Home Medications Medication Instructions Recorded Acetaminophen [Tylenol .Regular 650 mg GT Q6H PRN 07/28/17 Strength -] Albuterol 0.083% Nebulizer Kita 1 neb NEB Q6H 07/28/17 [Ventolin 0.083% Nebulizer Soln -] Chlorhexidine Gluconate 15 ml MM BID 07/28/17 Docusate Liquid [Colace Liquid -] 300 mg GT HS 07/28/17 Famotidine [Pepcid -] 20 mg GT AM 07/28/17 Hypromellose 0.5% Opth Soln 1 drop OU Q6H 07/28/17 [Artificial Tears] Ipratropium 0.02% Nebulizer 1 neb NEB Q6H 07/28/17 [Atrovent 0.02% Nebulizer -] Morphine *Immediate Release* [Msir 15 mg GT BID 07/28/17 -] Oxycodone HCl 5 mg GT Q4H PRN 07/28/17 Prednisone 5 mg GT DAILY 07/28/17 Sennosides [Senna] 17.2 mg GT DAILY 07/28/17 Trazodone HCl 100 mg GT HS 07/28/17 Albuterol 2.5/Ipratropium 0.5 1 amp NEB QIDR amp 08/01/17 [Duoneb -] Bacitracin - [Bacitracin Topical 1 applic TP DAILY tube 08/01/17 Ointment -] Piperacillin/Tazob 3.375 gm [Zosyn 3.375 gm IVPB Q8H-IV vial 08/01/17 -] A/P: Patient is a 82 y/o man with h/o 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 He was found to be septic with a small pneumothorax and pneumo-mediastinum # Acute sepsis: improved , cont Zosyn # 6, discussed with ID to continue 1 more day of IV antibiotic. will discharge the patient back to rehab. in am. # CHANTE: improved, due to volume depletion ;continue IVF # AMS: due to sepsis and volume depletion back to his base line. # Small Right pneumothorax, and pneumomediastinum: likely due to severe bolus disease and ruptured bulla spontaneously stable. # anemia of chronic disease , hemoglobin 7.8-->8.2 stable # chronic respiratory failure : cont. vent, Nebs ,on steroids. DVT Px: Heparin Visit type - Emergency Visit Emergency Visit: Yes ED Registration Date: 07/28/17 Care time: The patient presented to the Emergency Department on the above date and was hospitalized for further evaluation of their emergent condition. - New Patient This patient is new to me today: No - Critical Care Critical Care patient: No
[2017-08-03] MEDS ORDERED: traZODone HCL 50 MG TABLET (FP) ONE (21:26)
[2017-08-03] MEDS: DOCUSATE NA 100 MG/10 ML UNIT-DOSE CUPS GT SCH (22:43)
[2017-08-03] MEDS: traZODone HCL 100 MG TABLET (FP) PO SCH (22:44)
[2017-08-04] MEDS: PIPERACILLIN/TAZOB 3.375 GM 3.375 GM in DEXTROSE 5%-WATER - 50 ML IVPB SCH ×3 (02:28→17:34)
[2017-08-04] MEDS: HEPARIN NA (PORCINE) 5,000 UNITS/ML 1ML VIAL SQ SCH ×3 (05:25→22:29)
[2017-08-04] MEDS: ALBUTEROL SO4 2.5/IPRATROPIUM 0.5 INH SOL 3 ML VIAL.NEB. NEB SCH ×2 (06:28→18:17)
--- NOTE | 2017-08-04 10:14 | PN ---
Teaching Attending Note Name of Resident: Paula Herron ATTENDING PHYSICIAN STATEMENT I saw and evaluated the patient. I reviewed the resident's note and discussed the case with the resident. I agree with the resident's findings and plan as documented. SUBJECTIVE: Patient is comfortable with no acute distress, changed small collar to pediatric size today, feel better. OBJECTIVE: Vital Signs Temperature 97.3 F L 08/04/17 06:00 Pulse Rate 75 08/04/17 06:00 Respiratory Rate 19 08/04/17 06:00 Blood Pressure 126/64 08/04/17 06:00 O2 Sat by Pulse Oximetry (%) 99 08/03/17 09:00 CBCD WBC 13.7 K/mm3 (4.0-10.0) H 08/02/17 07:00 RBC 2.66 M/mm3 (4.00-5.60) L 08/02/17 07:00 Hgb 8.2 GM/dL (11.7-16.9) L 08/02/17 07:00 Hct 24.8 % (35.4-49) L 08/02/17 07:00 MCV 93.3 fl (80-96) 08/02/17 07:00 MCHC 33.1 g/dl (32.0-35.9) 08/02/17 07:00 RDW 13.4 % (11.9-15.9) 08/02/17 07:00 Plt Count 522 K/MM3 (134-434) H 08/02/17 07:00 MPV 7.1 fl (7.5-11.1) L 08/02/17 07:00 CMP Sodium 139 mmol/L (136-145) 08/02/17 07:00 Potassium 4.2 mmol/L (3.5-5.1) 08/02/17 07:00 Chloride 102 mmol/L (98-107) 08/02/17 07:00 Carbon Dioxide 32 mmol/L (21-32) 08/02/17 07:00 Anion Gap 5 (8-16) L 08/02/17 07:00 BUN 17 mg/dL (7-18) D 08/02/17 07:00 Creatinine 1.1 mg/dL (0.7-1.3) 08/02/17 07:00 Creat Clearance w eGFR 52.72 (>60) 07/29/17 08:10 Random Glucose 131 mg/dL (74-106) H 08/02/17 07:00 Calcium 7.7 mg/dL (8.5-10.1) L 08/02/17 07:00 Total Bilirubin 0.4 mg/dL (0.2-1.0) D 07/29/17 08:10 AST 14 U/L (15-37) L D 07/29/17 08:10 ALT 8 U/L (12-78) L D 07/29/17 08:10 Alkaline Phosphatase 87 U/L (45-117) D 07/29/17 08:10 Total Protein 6.4 g/dl (6.4-8.2) 07/29/17 08:10 Albumin 2.0 g/dl (3.4-5.0) L 07/29/17 08:10 Current Medications Generic Name Dose Route Start Last Admin Trade Name Freq PRN Reason Stop Dose Admin Albuterol/Ipratropium 1 amp 07/29/17 00:00 08/04/17 06:28 Duoneb - NEB 1 amp QIDR [facility] Administration Bacitracin 1 applic 07/29/17 10:00 08/03/17 11:11 Bacitracin - TP 1 applic DAILY [facility] Administration Docusate Sodium 300 mg 07/28/17 22:00 08/03/17 22:43 Colace Liquid - GT 300 mg HS [facility] Administration Heparin Sodium (Porcine) 5,000 unit 07/28/17 22:00 08/04/17 05:25 Heparin - SQ 5,000 unit TID [facility] Administration Piperacillin Sod/Tazobactam 50 mls @ 100 mls/hr 07/29/17 02:00 08/04/17 02:28 Sod 3.375 gm/ Dextrose IVPB 100 mls/hr Q8H-IV [facility] Administration Sodium Chloride 1,000 mls @ 50 mls/hr 07/29/17 19:01 08/03/17 21:05 Normal Saline - IV 50 mls/hr ASDIR [facility] Administration Morphine Sulfate 15 mg 07/29/17 10:00 08/03/17 11:09 Msir - PO 15 mg DAILY [facility] Administration Prednisone 5 mg 07/29/17 10:00 08/03/17 11:08 Deltasone - GT 5 mg DAILY [facility] Administration Ranitidine HCl 150 mg 07/29/17 10:00 08/03/17 11:10 Zantac Oral Solution - GT 150 mg DAILY [facility] Administration Senna 2 tab 07/29/17 10:00 08/03/17 11:08 Senna - PO 2 tab DAILY [facility] Administration Trazodone HCl 100 mg 07/28/17 22:00 08/03/17 22:44 Desyrel - PO 100 mg HS [facility] Administration Home Medications Medication Instructions Recorded Acetaminophen [Tylenol .Regular 650 mg GT Q6H PRN 07/28/17 Strength -] Albuterol 0.083% Nebulizer Kita 1 neb NEB Q6H 07/28/17 [Ventolin 0.083% Nebulizer Soln -] Chlorhexidine Gluconate 15 ml MM BID 07/28/17 Docusate Liquid [Colace Liquid -] 300 mg GT HS 07/28/17 Famotidine [Pepcid -] 20 mg GT AM 07/28/17 Hypromellose 0.5% Opth Soln 1 drop OU Q6H 07/28/17 [Artificial Tears] Ipratropium 0.02% Nebulizer 1 neb NEB Q6H 07/28/17 [Atrovent 0.02% Nebulizer -] Morphine *Immediate Release* [Msir 15 mg GT BID 07/28/17 -] Oxycodone HCl 5 mg GT Q4H PRN 07/28/17 Prednisone 5 mg GT DAILY 07/28/17 Sennosides [Senna] 17.2 mg GT DAILY 07/28/17 Trazodone HCl 100 mg GT HS 07/28/17 Albuterol 2.5/Ipratropium 0.5 1 amp NEB QIDR amp 08/01/17 [Duoneb -] Bacitracin - [Bacitracin Topical 1 applic TP DAILY tube 08/01/17 Ointment -] Piperacillin/Tazob 3.375 gm [Zosyn 3.375 gm IVPB Q8H-IV vial 08/01/17 -] CT of head (reviewed): Moderate, diffuse atrophy without traumatic lesions. CT of C-spineeviewed): Moderate, diffuse spondylytic disease without fracture or dislocation. PE: per resident's note ASSESSMENT AND PLAN: Patient is a 82 y/o man with h/o Chronic respiratory failure due to emphysema and reported interstitial lung disease, s/p recent trach and chronic vent 2 weeks prior to presentation, also h/o of TB treated in [facility] , as well as chronic pain and GERD who was brought from [place] after a fall from the bed . He was found to be septic with a small pneumothorax and pneumo-mediastinum. Admitted from [facility] after fall from bed with facial trauma. # s/p sepsis: last dose of Zosyn # 7 completed the course of IV antibiotic. will discharge the patient back to rehab. today. # CHANTE: improved, due to volume depletion ;continue IVF # AMS: due to sepsis and volume depletion back to his base line. # Small Right pneumothorax, and pneumomediastinum: likely due to severe bolus disease and ruptured bulla spontaneously stable. # anemia of chronic disease , hemoglobin 7.8-->8.2 stable # chronic respiratory failure : cont. vent., Nebs.on steroids. DVT Px: Heparin
[2017-08-04] MEDS: morphine SULFATE IMMEDIATE RELEASE 30 MG TAB PO SCH (10:28)
[2017-08-04] MEDS: predniSONE 5 MG TABLET (UD) GT SCH (10:29)
[2017-08-04] MEDS: RANITIDINE HCL 150 MG/10 ML UNIT-DOSE GT SCH (10:29)
[2017-08-04] MEDS: SENNOSIDES 8.6MG TABLET (FP) PO SCH (11:06)
[2017-08-04] MEDS: BACITRACIN 15 GM TUBE TOPICAL OINTMENT TP SCH (11:10)
--- NOTE | 2017-08-04 12:09 | PN ---
Progress Note (short form) - Note Progress Note: PULMONARY Clinically unchanged. Vented with PEEP 0. No fevers recorded. Last Vital Signs Temp Pulse Resp BP Pulse Ox 97.5 F L 84 28 H 100/60 99 08/04/17 10:19 08/04/17 10:19 08/04/17 10:19 08/04/17 10:19 08/03/17 09:00 Gen: vented, arousable Heart: RRR Lung: scattered rhonchi Abd: soft, nontender Ext: no edema CBC, BMP 08/02/17 07:00 08/02/17 07:00 Active Medications Albuterol/Ipratropium (Duoneb -) 1 amp NEB QIDR [facility] Last Admin: 08/04/17 06:28 Dose: 1 amp Bacitracin (Bacitracin -) 1 applic TP DAILY [facility] Last Admin: 08/04/17 11:10 Dose: 1 applic Docusate Sodium (Colace Liquid -) 300 mg GT HS [facility] Last Admin: 08/03/17 22:43 Dose: 300 mg Heparin Sodium (Porcine) (Heparin -) 5,000 unit SQ TID [facility] Last Admin: 08/04/17 05:25 Dose: 5,000 unit Piperacillin Sod/Tazobactam (Sod 3.375 gm/ Dextrose) 50 mls @ 100 mls/hr IVPB Q8H-IV [facility] Last Admin: 08/04/17 10:33 Dose: 100 mls/hr Sodium Chloride (Normal Saline -) 1,000 mls @ 50 mls/hr IV ASDIR [facility] Last Admin: 08/03/17 21:05 Dose: 50 mls/hr Morphine Sulfate (Msir -) 15 mg PO DAILY [facility] Last Admin: 08/04/17 10:28 Dose: 15 mg Prednisone (Deltasone -) 5 mg GT DAILY [facility] Last Admin: 08/04/17 10:29 Dose: 5 mg Ranitidine HCl (Zantac Oral Solution -) 150 mg GT DAILY [facility] Last Admin: 08/04/17 10:29 Dose: 150 mg Senna (Senna -) 2 tab PO DAILY [facility] Last Admin: 08/04/17 11:06 Dose: Not Given Trazodone HCl (Desyrel -) 100 mg PO HS [facility] Last Admin: 08/03/17 22:44 Dose: 100 mg A/P Acute on Chronic Respiratory Failure Loculated Pneumothorax Pneumomediastinum Interstitial Lung Disease r/o Pnuemonia Acute Kidney Injury - pain control - keep PEEP 0 - complete empiric antibiotics - suspect majority of findings on CT chest are chronic - inhaled bronchodilators - O2 to keep SpO2 >90% - monitor urine output, creatinine - enteral feeds - spontaneous breathing trials as tolerated - DVT/GI prophylaxis - d/c planning
[2017-08-04] MEDS: SODIUM CHLORIDE 1,000 ML IV SCH ×2 (17:33→22:22)
--- NOTE | 2017-08-04 19:48 | PN ---
Physical Exam: SUBJECTIVE: Patient seen and examined. No fever, chills. No events overnight. OBJECTIVE: Vital Signs Period Temp Pulse Resp BP Sys/Fatima Pulse Ox Last 24 Hr 97.3 F-97.5 F 73-84 17-28 100-126/60-64 100 GENERAL: The patient is intubated, comfortable, not sedated. Pt is alert and oriented. NECK: wearing soft neck collar. Trach in place. LUNGS: scattered rhonchi. No accessory muscle use. HEART: Regular rate and rhythm, +S1/S2. ABDOMEN: Soft, nondistended, no masses. EXTREMITIES: Warm, well-perfused, no edema. Active Medications Generic Name Dose Route Start Last Admin Trade Name Freq PRN Reason Stop Dose Admin Albuterol/Ipratropium 1 amp 07/29/17 00:00 08/04/17 18:17 Duoneb - NEB 1 amp QIDR [facility] Administration Bacitracin 1 applic 07/29/17 10:00 08/04/17 11:10 Bacitracin - TP 1 applic DAILY [facility] Administration Docusate Sodium 300 mg 07/28/17 22:00 08/03/17 22:43 Colace Liquid - GT 300 mg HS [facility] Administration Heparin Sodium (Porcine) 5,000 unit 07/28/17 22:00 08/04/17 13:47 Heparin - SQ 5,000 unit TID [facility] Administration Piperacillin Sod/Tazobactam 50 mls @ 100 mls/hr 07/29/17 02:00 08/04/17 17:34 Sod 3.375 gm/ Dextrose IVPB 100 mls/hr Q8H-IV [facility] Administration Sodium Chloride 1,000 mls @ 50 mls/hr 07/29/17 19:01 08/04/17 17:33 Normal Saline - IV 50 mls/hr ASDIR [facility] Administration Morphine Sulfate 15 mg 07/29/17 10:00 08/04/17 10:28 Msir - PO 15 mg DAILY [facility] Administration Prednisone 5 mg 07/29/17 10:00 08/04/17 10:29 Deltasone - GT 5 mg DAILY [facility] Administration Ranitidine HCl 150 mg 07/29/17 10:00 08/04/17 10:29 Zantac Oral Solution - GT 150 mg DAILY [facility] Administration Senna 2 tab 07/29/17 10:00 08/04/17 11:06 Senna - PO Not Given DAILY [facility] Trazodone HCl 100 mg 07/28/17 22:00 08/03/17 22:44 Desyrel - PO 100 mg HS [facility] Administration ASSESSMENT/PLAN: 82yo M with PMH of chronic respiratory failure 2/2 emphysema, s/p recent trach and chronic vent x 2 weeks, presented s/p a fall from the bed, found to be septic with a small pneumothorax and pneumomediastinum. # sepsis - likely 2/2 a pulmonary source, possibly vent-associated pna - resolved - Day 7 of IV Zosyn - IVFs - continue vent with PEEP setting of 0 - spontaneous breathing trials as tolerated - pain management with Morphine daily # chronic respiratory failure - continue vent - continue Duoneb and Prednisone # normocytic anemia - anemia of chronic disease with dilutional drop - stable # FEN - Fluids: NS @ 50 ml/hr - Electrolytes: wnl, continue to monitor - Nutrition: Jevity 1.5 @ 20 ml/hr to goal of 35 ml/hr + 35 ml/hr free water # Prophylaxis - DVT ppx with Heparin TID - GI ppx with Zantac Visit type - Emergency Visit Emergency Visit: Yes ED Registration Date: 07/28/17 Care time: The patient presented to the Emergency Department on the above date and was hospitalized for further evaluation of their emergent condition. - New Patient This patient is new to me today: No - Critical Care Critical Care patient: No
[2017-08-04] MEDS ORDERED: traZODone HCL 50 MG TABLET (FP) ONE (22:03)
[2017-08-04] MEDS: traZODone HCL 100 MG TABLET (FP) PO SCH (22:29)
[2017-08-04] MEDS: DOCUSATE NA 100 MG/10 ML UNIT-DOSE CUPS GT SCH (22:29)
[2017-08-05] MEDS: PIPERACILLIN/TAZOB 3.375 GM 3.375 GM in DEXTROSE 5%-WATER - 50 ML IVPB SCH ×2 (02:02→11:01)
[2017-08-05] MEDS: ALBUTEROL SO4 2.5/IPRATROPIUM 0.5 INH SOL 3 ML VIAL.NEB. NEB SCH ×4 (06:00→18:52)
[2017-08-05] MEDS: HEPARIN NA (PORCINE) 5,000 UNITS/ML 1ML VIAL SQ SCH ×3 (06:03→23:15)
[2017-08-05 09:08] LABS: MCH 30.4 pg (25.7-33.7); MCHC 31.9 g/dl (32.0-35.9); MEAN PLT VOLUME 6.8 fl (7.5-11.1); PLATELET COUNT 641 K/MM3 (134-434); RDW 13.4 % (11.9-15.9); WHITE BLOOD COUNT 18.2 K/mm3 (4.0-10.0)
[2017-08-05 09:37] LABS: ANION GAP 6 (8-16); CALCIUM 8.6 mg/dL (8.5-10.1); CO2 30 mmol/L (21-32); CREATININE 1.4 mg/dL (0.7-1.3); GLUCOSE,RANDOM 129 mg/dL (74-106)
[2017-08-05] MEDS: RANITIDINE HCL 150 MG/10 ML UNIT-DOSE GT SCH (10:32)
[2017-08-05] MEDS: morphine SULFATE IMMEDIATE RELEASE 30 MG TAB PO SCH (10:32)
[2017-08-05] MEDS: predniSONE 5 MG TABLET (UD) GT SCH (10:32)
[2017-08-05] MEDS: BACITRACIN 15 GM TUBE TOPICAL OINTMENT TP SCH (10:34)
[2017-08-05] MEDS: SENNOSIDES 8.6MG TABLET (FP) PO SCH (10:35)
[2017-08-05] MEDS: SODIUM CHLORIDE 1,000 ML IV SCH (13:42)
--- NOTE | 2017-08-05 15:31 | PN ---
Progress Note (short form) - Note Progress Note: PULMONARY Clinically unchanged. No fevers recorded. Last Vital Signs Temp Pulse Resp BP Pulse Ox 98.3 F 96 H 25 H 117/82 97 08/05/17 10:39 08/05/17 10:39 08/05/17 14:03 08/05/17 10:39 08/05/17 09:33 Gen: vented, arousable Heart: RRR Lung: scattered rhonchi Abd: soft, nontender Ext: no edema CBC, BMP 08/05/17 08:30 08/05/17 08:30 Active Medications Albuterol/Ipratropium (Duoneb -) 1 amp NEB QIDR [facility] Last Admin: 08/05/17 11:14 Dose: 1 amp Bacitracin (Bacitracin -) 1 applic TP DAILY [facility] Last Admin: 08/05/17 10:34 Dose: 1 applic Docusate Sodium (Colace Liquid -) 300 mg GT HS [facility] Last Admin: 08/04/17 22:29 Dose: 300 mg Heparin Sodium (Porcine) (Heparin -) 5,000 unit SQ TID [facility] Last Admin: 08/05/17 13:43 Dose: 5,000 unit Piperacillin Sod/Tazobactam (Sod 3.375 gm/ Dextrose) 50 mls @ 100 mls/hr IVPB Q8H-IV [facility] Last Admin: 08/05/17 11:01 Dose: 100 mls/hr Sodium Chloride (Normal Saline -) 1,000 mls @ 50 mls/hr IV ASDIR [facility] Last Admin: 08/05/17 13:42 Dose: 50 mls/hr Morphine Sulfate (Msir -) 15 mg PO DAILY [facility] Last Admin: 08/05/17 10:32 Dose: 15 mg Prednisone (Deltasone -) 5 mg GT DAILY [facility] Last Admin: 08/05/17 10:32 Dose: 5 mg Ranitidine HCl (Zantac Oral Solution -) 150 mg GT DAILY [facility] Last Admin: 08/05/17 10:32 Dose: 150 mg Senna (Senna -) 2 tab PO DAILY [facility] Last Admin: 08/05/17 10:35 Dose: Not Given Trazodone HCl (Desyrel -) 100 mg PO HS [facility] Last Admin: 08/04/17 22:29 Dose: 100 mg A/P Acute on Chronic Respiratory Failure Loculated Pneumothorax Pneumomediastinum Interstitial Lung Disease r/o Pnuemonia Acute Kidney Injury - pain control - keep PEEP 0 - complete empiric antibiotics - suspect majority of findings on CT chest are chronic - inhaled bronchodilators - O2 to keep SpO2 >90% - monitor urine output, creatinine - enteral feeds - spontaneous breathing trials as tolerated - DVT/GI prophylaxis - d/c planning
--- NOTE | 2017-08-05 15:49 | PN ---
Progress Note (short form) - Note Progress Note: resting comfortably alert and responsive vent settings stable Vital Signs Period Temp Pulse Resp BP Sys/Fatima Pulse Ox Last 24 Hr 97.4 F-98.6 F 71-96 18-33 102-143/60-82 97-100 cor-rrr lungs decreased bs at bases abd soft,+gt ext no edema CBC, BMP 08/05/17 08:30 08/05/17 08:30 Microbiology 07/29/17 15:30 Nasopharyngeal Swab Respiratory Virus Panel - Final 07/28/17 05:26 Blood - Peripheral Venous Blood Culture - Final NO GROWTH AFTER 5 DAYS INCUBATION 07/28/17 05:16 Blood - Peripheral Venous Blood Culture - Final NO GROWTH AFTER 5 DAYS INCUBATION 07/30/17 11:00 Sputum - Endotracheal Suction W/O Vent Gram Stain - Final 07/30/17 11:00 Sputum - Endotracheal Suction W/O Vent Sputum Culture - Final Escherichia Coli [employer] 07/29/17 16:00 Nasopharyngeal Swab Influenza Types A,B Antigen ([place]) - Final 07/29/17 16:00 Nasopharyngeal Swab - Final 07/29/17 16:00 Nasopharyngeal Swab Respiratory Syncytial Virus Ag - Final 07/28/17 09:42 Urine For Antigen Detection Legionella Antigen - Final 07/28/17 09:42 Urine For Antigen Detection Streptococcus pneumoniae Antigen (M - Final 07/28/17 06:30 Urine - Urine Clean Catch Urine Culture - Final NO GROWTH OBTAINED Current Medications Albuterol/Ipratropium (Duoneb -) 1 amp NEB QIDR [facility] Last Admin: 08/05/17 11:14 Dose: 1 amp Bacitracin (Bacitracin -) 1 applic TP DAILY [facility] Last Admin: 08/05/17 10:34 Dose: 1 applic Docusate Sodium (Colace Liquid -) 300 mg GT HS [facility] Last Admin: 08/04/17 22:29 Dose: 300 mg Heparin Sodium (Porcine) (Heparin -) 5,000 unit SQ TID [facility] Last Admin: 08/05/17 13:43 Dose: 5,000 unit Piperacillin Sod/Tazobactam (Sod 3.375 gm/ Dextrose) 50 mls @ 100 mls/hr IVPB Q8H-IV [facility] Last Admin: 08/05/17 11:01 Dose: 100 mls/hr Sodium Chloride (Normal Saline -) 1,000 mls @ 50 mls/hr IV ASDIR [facility] Last Admin: 08/05/17 13:42 Dose: 50 mls/hr Morphine Sulfate (Msir -) 15 mg PO DAILY [facility] Last Admin: 08/05/17 10:32 Dose: 15 mg Prednisone (Deltasone -) 5 mg GT DAILY [facility] Last Admin: 08/05/17 10:32 Dose: 5 mg Ranitidine HCl (Zantac Oral Solution -) 150 mg GT DAILY [facility] Last Admin: 08/05/17 10:32 Dose: 150 mg Senna (Senna -) 2 tab PO DAILY [facility] Last Admin: 08/05/17 10:35 Dose: Not Given Trazodone HCl (Desyrel -) 100 mg PO HS [facility] Last Admin: 08/04/17 22:29 Dose: 100 mg imp/reccd 82 year old man with chronic repiratory failure, recently admitted [facility] with trach and PEG-on vent admitted s/p fall s/p fall r/o pneumonia chronic resp failure ILD much more alert now with leukocytosis no fevers looks well ?diarrhea day #8 zosyn would d/c antibiotics send cdiff repeat cbc in am- if leukocytosis persists, would get cxray and cultures d/w Hospitalist service Problem List - Problems (1) Fall from bed Code(s): W06.XXXA - FALL FROM BED, INITIAL ENCOUNTER (2) Pneumonia Code(s): J18.9 - PNEUMONIA, UNSPECIFIED ORGANISM (3) Chronic respiratory failure Code(s): J96.10 - CHRONIC RESPIRATORY FAILURE, UNSP W HYPOXIA OR HYPERCAPNIA
--- NOTE | 2017-08-05 19:38 | PN ---
Physical Exam: SUBJECTIVE: Patient seen and examined. Pt intubated, resting comfortably. No fever, chills. No events overnight. OBJECTIVE: Vital Signs Period Temp Pulse Resp BP Sys/Fatima Pulse Ox Last 24 Hr 97.4 F-98.6 F 71-96 21-33 102-143/60-82 97-100 GENERAL: The patient is intubated, comfortable, not sedated. Pt is alert and oriented. NECK: wearing soft neck collar. Trach in place. LUNGS: scattered rhonchi. No accessory muscle use. HEART: Regular rate and rhythm, +S1/S2. ABDOMEN: Soft, nondistended, no masses. EXTREMITIES: Warm, well-perfused, no edema. Laboratory Results - last 24 hr 08/05/17 08/05/17 08:30 08:30 WBC 18.2 H D RBC 3.17 L Hgb 9.6 L D Hct 30.1 L D MCV 95.0 MCH 30.4 MCHC 31.9 L RDW 13.4 Plt Count 641 H D MPV 6.8 L Sodium 136 Potassium 4.9 Chloride 100 Carbon Dioxide 30 Anion Gap 6 L BUN 22 H D Creatinine 1.4 H D Random Glucose 129 H Calcium 8.6 Active Medications Generic Name Dose Route Start Last Admin Trade Name Freq PRN Reason Stop Dose Admin Albuterol/Ipratropium 1 amp 07/29/17 00:00 08/05/17 18:52 Duoneb - NEB 1 amp QIDR [facility] Administration Bacitracin 1 applic 07/29/17 10:00 08/05/17 10:34 Bacitracin - TP 1 applic DAILY [facility] Administration Docusate Sodium 300 mg 07/28/17 22:00 08/04/17 22:29 Colace Liquid - GT 300 mg HS [facility] Administration Heparin Sodium (Porcine) 5,000 unit 07/28/17 22:00 08/05/17 13:43 Heparin - SQ 5,000 unit TID [facility] Administration Sodium Chloride 1,000 mls @ 50 mls/hr 07/29/17 19:01 08/05/17 13:42 Normal Saline - IV 50 mls/hr ASDIR [facility] Administration Morphine Sulfate 15 mg 07/29/17 10:00 08/05/17 10:32 Msir - PO 15 mg DAILY [facility] Administration Prednisone 5 mg 07/29/17 10:00 08/05/17 10:32 Deltasone - GT 5 mg DAILY [facility] Administration Ranitidine HCl 150 mg 07/29/17 10:00 08/05/17 10:32 Zantac Oral Solution - GT 150 mg DAILY [facility] Administration Senna 2 tab 07/29/17 10:00 08/05/17 10:35 Senna - PO Not Given DAILY [facility] Trazodone HCl 100 mg 07/28/17 22:00 08/04/17 22:29 Desyrel - PO 100 mg HS [facility] Administration ASSESSMENT/PLAN: 82yo M with PMH of chronic respiratory failure 2/2 emphysema, s/p recent trach and chronic vent x 2 weeks, presented s/p a fall from the bed, found to be septic with a small pneumothorax and pneumomediastinum. # sepsis - likely 2/2 a pulmonary source, possibly vent-associated pna - leukocytosis - ID (Dr Culp) recs appreciated: if leukocytosis persists , get CXR and cultures - Day 8 of IV Zosyn, D/Gorge now - IVFs - continue vent with PEEP setting of 0 - spontaneous breathing trials as tolerated - pain management with Morphine daily - ?diarrhea, f/u c-diff # chronic respiratory failure - continue vent - continue Duoneb and Prednisone # normocytic anemia - anemia of chronic disease - stable # FEN - Fluids: NS @ 50 ml/hr - Electrolytes: wnl, continue to monitor - Nutrition: Jevity 1.5 @ 20 ml/hr to goal of 35 ml/hr + 35 ml/hr free water # Prophylaxis - DVT ppx with Heparin TID - GI ppx with Zantac Visit type - Emergency Visit Emergency Visit: Yes ED Registration Date: 07/28/17 Care time: The patient presented to the Emergency Department on the above date and was hospitalized for further evaluation of their emergent condition. - New Patient This patient is new to me today: No - Critical Care Critical Care patient: No
[2017-08-05] MEDS ORDERED: ACETAMINOPHEN 650 MG/20.3 ML ORAL SOLUTION (CUPS) GT PRN (19:50)
[2017-08-05] MEDS ORDERED: traZODone HCL 50 MG TABLET (FP) ONE (23:10)
[2017-08-05] MEDS: traZODone HCL 100 MG TABLET (FP) PO SCH (23:15)
[2017-08-05] MEDS: DOCUSATE NA 100 MG/10 ML UNIT-DOSE CUPS GT SCH (23:15)
--- NOTE | 2017-08-05 23:57 | PN ---
Teaching Attending Note Name of Resident: Calvin Bernal ATTENDING PHYSICIAN STATEMENT I saw and evaluated the patient. I reviewed the resident's note and discussed the case with the resident. I agree with the resident's findings and plan as documented. SUBJECTIVE: Patient is feeling better with no acute distress OBJECTIVE: Vital Signs Temperature 98.4 F 08/05/17 19:00 Pulse Rate 76 08/05/17 19:00 Respiratory Rate 24 08/05/17 19:00 Blood Pressure 111/62 08/05/17 19:00 O2 Sat by Pulse Oximetry (%) 97 08/05/17 09:33 CBCD WBC 18.2 K/mm3 (4.0-10.0) H D 08/05/17 08:30 RBC 3.17 M/mm3 (4.00-5.60) L 08/05/17 08:30 Hgb 9.6 GM/dL (11.7-16.9) L D 08/05/17 08:30 Hct 30.1 % (35.4-49) L D 08/05/17 08:30 MCV 95.0 fl (80-96) 08/05/17 08:30 MCHC 31.9 g/dl (32.0-35.9) L 08/05/17 08:30 RDW 13.4 % (11.9-15.9) 08/05/17 08:30 Plt Count 641 K/MM3 (134-434) H D 08/05/17 08:30 MPV 6.8 fl (7.5-11.1) L 08/05/17 08:30 CMP Sodium 136 mmol/L (136-145) 08/05/17 08:30 Potassium 4.9 mmol/L (3.5-5.1) 08/05/17 08:30 Chloride 100 mmol/L (98-107) 08/05/17 08:30 Carbon Dioxide 30 mmol/L (21-32) 08/05/17 08:30 Anion Gap 6 (8-16) L 08/05/17 08:30 BUN 22 mg/dL (7-18) H D 08/05/17 08:30 Creatinine 1.4 mg/dL (0.7-1.3) H D 08/05/17 08:30 Creat Clearance w eGFR 52.72 (>60) 07/29/17 08:10 Random Glucose 129 mg/dL (74-106) H 08/05/17 08:30 Calcium 8.6 mg/dL (8.5-10.1) 08/05/17 08:30 Total Bilirubin 0.4 mg/dL (0.2-1.0) D 07/29/17 08:10 AST 14 U/L (15-37) L D 07/29/17 08:10 ALT 8 U/L (12-78) L D 07/29/17 08:10 Alkaline Phosphatase 87 U/L (45-117) D 07/29/17 08:10 Total Protein 6.4 g/dl (6.4-8.2) 07/29/17 08:10 Albumin 2.0 g/dl (3.4-5.0) L 07/29/17 08:10 Current Medications Generic Name Dose Route Start Last Admin Trade Name Freq PRN Reason Stop Dose Admin Acetaminophen 650 mg 08/05/17 19:50 08/05/17 20:22 Tylenol Oral Solution - GT 650 mg Q4H PRN Administration FEVER OR PAIN Albuterol/Ipratropium 1 amp 07/29/17 00:00 08/05/17 18:52 Duoneb - NEB 1 amp QIDR [facility] Administration Bacitracin 1 applic 07/29/17 10:00 08/05/17 10:34 Bacitracin - TP 1 applic DAILY [facility] Administration Docusate Sodium 300 mg 07/28/17 22:00 08/05/17 23:15 Colace Liquid - GT 300 mg HS [facility] Administration Heparin Sodium (Porcine) 5,000 unit 07/28/17 22:00 08/05/17 23:15 Heparin - SQ 5,000 unit TID [facility] Administration Sodium Chloride 1,000 mls @ 50 mls/hr 07/29/17 19:01 08/05/17 13:42 Normal Saline - IV 50 mls/hr ASDIR [facility] Administration Morphine Sulfate 15 mg 07/29/17 10:00 08/05/17 10:32 Msir - PO 15 mg DAILY [facility] Administration Prednisone 5 mg 07/29/17 10:00 08/05/17 10:32 Deltasone - GT 5 mg DAILY [facility] Administration Ranitidine HCl 150 mg 07/29/17 10:00 08/05/17 10:32 Zantac Oral Solution - GT 150 mg DAILY [facility] Administration Senna 2 tab 07/29/17 10:00 08/05/17 10:35 Senna - PO Not Given DAILY [facility] Trazodone HCl 100 mg 07/28/17 22:00 08/05/17 23:15 Desyrel - PO 100 mg HS [facility] Administration Home Medications Medication Instructions Recorded Acetaminophen [Tylenol .Regular 650 mg GT Q6H PRN 07/28/17 Strength -] Albuterol 0.083% Nebulizer Kita 1 neb NEB Q6H 07/28/17 [Ventolin 0.083% Nebulizer Soln -] Chlorhexidine Gluconate 15 ml MM BID 07/28/17 Docusate Liquid [Colace Liquid -] 300 mg GT HS 07/28/17 Famotidine [Pepcid -] 20 mg GT AM 07/28/17 Hypromellose 0.5% Opth Soln 1 drop OU Q6H 07/28/17 [Artificial Tears] Ipratropium 0.02% Nebulizer 1 neb NEB Q6H 07/28/17 [Atrovent 0.02% Nebulizer -] Morphine *Immediate Release* [Msir 15 mg GT BID 07/28/17 -] Oxycodone HCl 5 mg GT Q4H PRN 07/28/17 Prednisone 5 mg GT DAILY 07/28/17 Sennosides [Senna] 17.2 mg GT DAILY 07/28/17 Trazodone HCl 100 mg GT HS 07/28/17 Albuterol 2.5/Ipratropium 0.5 1 amp NEB QIDR amp 08/01/17 [Duoneb -] Bacitracin - [Bacitracin Topical 1 applic TP DAILY tube 08/01/17 Ointment -] Piperacillin/Tazob 3.375 gm [Zosyn 3.375 gm IVPB Q8H-IV vial 08/01/17 -] CT of head (reviewed): Moderate, diffuse atrophy without traumatic lesions. CT of C-spineeviewed): Moderate, diffuse spondylytic disease without fracture or dislocation. PE: per resident's note ASSESSMENT AND PLAN: Patient is a 82 y/o man with h/o Chronic respiratory failure due to emphysema and reported interstitial lung disease, s/p recent trach and chronic vent 2 weeks prior to presentation, also h/o of TB treated in [facility] , as well as chronic pain and GERD who was brought from [place] after a fall from the bed . He was found to be septic with a small pneumothorax and pneumo-mediastinum. Admitted from [facility] after fall from bed with facial trauma. # s/p sepsis: last dose of Zosyn # 7 completed the course of IV antibiotic. will discharge the patient back to rehab. today if possible as per ID no further antibiotic. # CHANTE: improved, due to volume depletion ;continue IVF # AMS: due to sepsis and volume depletion back to his base line. # Small Right pneumothorax, and pneumomediastinum: likely due to severe bolus disease and ruptured bulla spontaneously stable. # anemia of chronic disease , hemoglobin 7.8-->8.2 stable # chronic respiratory failure : cont. vent., Nebs.on steroids. DVT Px: Heparin
[2017-08-06] MEDS: ALBUTEROL SO4 2.5/IPRATROPIUM 0.5 INH SOL 3 ML VIAL.NEB. NEB SCH ×4 (00:30→18:24)
[2017-08-06] MEDS: HEPARIN NA (PORCINE) 5,000 UNITS/ML 1ML VIAL SQ SCH ×3 (06:15→22:19)
[2017-08-06] MEDS: SODIUM CHLORIDE 1,000 ML IV SCH ×2 (06:19→22:14)
[2017-08-06 09:02] LABS: MCH 31.2 pg (25.7-33.7); MCHC 32.8 g/dl (32.0-35.9); MEAN CELL VOLUME 94.9 fl (80-96); MEAN PLT VOLUME 7.1 fl (7.5-11.1); PLATELET COUNT 607 K/MM3 (134-434); RDW 13.2 % (11.9-15.9); WHITE BLOOD COUNT 15.4 K/mm3 (4.0-10.0)
[2017-08-06 09:23] LABS: ANION GAP 6 (8-16); CALCIUM 8.8 mg/dL (8.5-10.1); CO2 32 mmol/L (21-32); CREATININE 1.2 mg/dL (0.7-1.3); GLUCOSE,RANDOM 114 mg/dL (74-106); PHOSPHOROUS 3.6 mg/dL (2.5-4.9)
[2017-08-06] MEDS: BACITRACIN 15 GM TUBE TOPICAL OINTMENT TP SCH (11:04)
[2017-08-06] MEDS: morphine SULFATE IMMEDIATE RELEASE 30 MG TAB PO SCH (11:04)
[2017-08-06] MEDS: predniSONE 5 MG TABLET (UD) GT SCH (11:04)
[2017-08-06] MEDS: RANITIDINE HCL 150 MG/10 ML UNIT-DOSE GT SCH (11:04)
[2017-08-06] MEDS: SENNOSIDES 8.6MG TABLET (FP) PO SCH (11:05)
[2017-08-06 12:05] LABS: ANISOCYTOSIS 1+; BAND % 3.1 %; HYPOCHROMIA 0; MACROCYTOSIS 0; METAMYELOCYTE 0 % (0-2); MICROCYTOSIS 1+; MYELOCYTE 1 % (0-2); PLATELET ESTIMATE INCREASED; POIKILOCYTOSIS 0; POLYCHROMASIA 0; REACTIVE LYMPHOCYTES 0 % (0-80)
[2017-08-06 12:31] LABS: TOTAL CELLS COUNTED 100
--- NOTE | 2017-08-06 13:19 | PN ---
Progress Note (short form) - Note Progress Note: resting comfortably alert and responsive vent settings stable fi02 35% no diarrhea- no cdiff sent Vital Signs Period Temp Pulse Resp BP Sys/Fatima Pulse Ox Last 24 Hr 98.0 F-98.4 F 76-98 18-30 111-143/62-75 95-97 cor-rrr lungs decreased bs at bases abd soft,nt +gt ext no edema CBC, BMP 08/06/17 08:00 08/06/17 08:00 imp/reccd 82 year old man with chronic repiratory failure, [facility] with trach and PEG-on vent admitted s/p fall s/p fall r/o pneumonia chronic resp failure ILD off zosyn with leukocytosis trending down no fevers no diarrhea would observe off antibioitics and f/u cbc Problem List - Problems (1) Fall from bed Code(s): W06.XXXA - FALL FROM BED, INITIAL ENCOUNTER (2) Pneumonia Code(s): J18.9 - PNEUMONIA, UNSPECIFIED ORGANISM (3) Chronic respiratory failure Code(s): J96.10 - CHRONIC RESPIRATORY FAILURE, UNSP W HYPOXIA OR HYPERCAPNIA
--- NOTE | 2017-08-06 15:48 | PN ---
Teaching Attending Note Name of Resident: Paula Herron ATTENDING PHYSICIAN STATEMENT I saw and evaluated the patient. I reviewed the resident's note and discussed the case with the resident. I agree with the resident's findings and plan as documented. SUBJECTIVE: no pain or SOB. OBJECTIVE: Awake, alert , responsive , tries to talk. MMM No facial droop CV: RRR, no MRG, No JVD Lungs: b/l course rales . ABd: soft, NT, ND , PEG in , NL BS Ext: no edema ASSESSMENT AND PLAN: 82 y/o unfortunate man with h/o Chronic resp failure due to emphysema and reported interstitial lung disease, s/p recent trach and chronic vent 2 weeks prior to presentation, also h/o of TB treated in [facility] , as well as chronic pain and GERD who was brought from [place] after a fall from the bed . He was found to be septic with a small pneumothorax and pneumo-mediastinum 1- Sepsis: likely form PNA , treated and resolved - monitor off ABx. - leukocytosis has improved . No diarrhea 2- CHANTE: prerenal azotemia form volume depletion - improved with IVF 3- AMS: due to sepsis and volume depletion - back to base line 4- Small R pneumothorax, and pneumomediastinum: likely due to severe bolus disease and ruptured bulla spontaneously . stable pneuo not seen on last cxray 5- anemia of chronic disease 6- chronic resp failure : - cont vent - cont Nebs - cont chronic steroids Dispo : [facility] Medically ready for dc . pending placement
--- NOTE | 2017-08-06 16:26 | PN ---
Progress Note (short form) - Note Progress Note: PULMONARY VSS/AFEBRILE Gen: vented, arousable Heart: RRR Lung: scattered rhonchi Abd: soft, nontender Ext: no edema LABS/MEDS/NOTES/IMAGES/MICRO REVIEWED Active Medications Albuterol/Ipratropium (Duoneb -) 1 amp NEB QIDR [facility] Last Admin: 08/05/17 11:14 Dose: 1 amp Bacitracin (Bacitracin -) 1 applic TP DAILY [facility] Last Admin: 08/05/17 10:34 Dose: 1 applic Docusate Sodium (Colace Liquid -) 300 mg GT HS [facility] Last Admin: 08/04/17 22:29 Dose: 300 mg Heparin Sodium (Porcine) (Heparin -) 5,000 unit SQ TID [facility] Last Admin: 08/05/17 13:43 Dose: 5,000 unit Piperacillin Sod/Tazobactam (Sod 3.375 gm/ Dextrose) 50 mls @ 100 mls/hr IVPB Q8H-IV [facility] Last Admin: 08/05/17 11:01 Dose: 100 mls/hr Sodium Chloride (Normal Saline -) 1,000 mls @ 50 mls/hr IV ASDIR [facility] Last Admin: 08/05/17 13:42 Dose: 50 mls/hr Morphine Sulfate (Msir -) 15 mg PO DAILY [facility] Last Admin: 08/05/17 10:32 Dose: 15 mg Prednisone (Deltasone -) 5 mg GT DAILY [facility] Last Admin: 08/05/17 10:32 Dose: 5 mg Ranitidine HCl (Zantac Oral Solution -) 150 mg GT DAILY [facility] Last Admin: 08/05/17 10:32 Dose: 150 mg Senna (Senna -) 2 tab PO DAILY [facility] Last Admin: 08/05/17 10:35 Dose: Not Given Trazodone HCl (Desyrel -) 100 mg PO HS [facility] Last Admin: 08/04/17 22:29 Dose: 100 mg A/P Acute on Chronic Respiratory Failure Loculated Pneumothorax resolved Pneumomediastinum resolved Interstitial Lung Disease S/P Pnuemonia Acute Kidney Injury - pain control - keep PEEP 0 - complete empiric antibiotics - suspect majority of findings on CT chest are chronic - inhaled bronchodilators - O2 to keep SpO2 >90% - monitor urine output, creatinine - enteral feeds - spontaneous breathing trials as tolerated - DVT/GI prophylaxis - patient is able to be weaned but will require a termite control representative acute care facility. Chelsy KOCH MD
--- NOTE | 2017-08-06 20:07 | PN ---
Physical Exam: SUBJECTIVE: Patient seen and examined. Pt intubated, resting comfortably. Pt denies chest pain. No fever, chills, diarrhea. No events overnight. OBJECTIVE: Vital Signs Period Temp Pulse Resp BP Sys/Fatima Pulse Ox Last 24 Hr 97.7 F-98.3 F 82-98 18-35 122-152/62-79 95-100 GENERAL: The patient is intubated, comfortable, not sedated. Pt is alert and oriented. NECK: wearing soft neck collar. Trach in place. LUNGS: scattered rhonchi. No accessory muscle use. HEART: Regular rate and rhythm, +S1/S2. ABDOMEN: Soft, nondistended, no masses, (+) bowel sounds x 4. EXTREMITIES: Warm, well-perfused, no edema. Laboratory Results - last 24 hr 08/06/17 08/06/17 08:00 08:00 WBC 15.4 H RBC 2.92 L Hgb 9.1 L Hct 27.7 L MCV 94.9 MCH 31.2 MCHC 32.8 RDW 13.2 Plt Count 607 H MPV 7.1 L Total Counted 100 Neutrophils % No Result Required. Neutrophils % (Manual) 82.7 Band Neutrophils % 3.1 Lymphocytes % No Result Required. Lymphocytes % (Manual) 5.1 L Monocytes % (Manual) 6 Eosinophils % (Manual) 2.0 Basophils % (Manual) 0.0 Myelocytes % (Man) 1 Metamyelocytes 0 Hypochromia 0 Platelet Estimate Increased Polychromasia 0 Poikilocytosis 0 Basophilic Stippling 1+ Anisocytosis 1+ Microcytosis 1+ Macrocytosis 0 Sodium 139 Potassium 4.7 Chloride 101 Carbon Dioxide 32 Anion Gap 6 L BUN 23 H Creatinine 1.2 Random Glucose 114 H Calcium 8.8 Phosphorus 3.6 Magnesium 2.0 Active Medications Generic Name Dose Route Start Last Admin Trade Name Freq PRN Reason Stop Dose Admin Acetaminophen 650 mg 08/05/17 19:50 08/05/17 20:22 Tylenol Oral Solution - GT 650 mg Q4H PRN Administration FEVER OR PAIN Albuterol/Ipratropium 1 amp 07/29/17 00:00 08/06/17 18:24 Duoneb - NEB 1 amp QIDR ROSETTE Administration Bacitracin 1 applic 07/29/17 10:00 08/06/17 11:04 Bacitracin - TP 1 applic DAILY ROSETTE Administration Docusate Sodium 300 mg 07/28/17 22:00 08/05/17 23:15 Colace Liquid - GT 300 mg HS ROSETTE Administration Heparin Sodium (Porcine) 5,000 unit 07/28/17 22:00 08/06/17 15:02 Heparin - SQ 5,000 unit TID ROSETTE Administration Sodium Chloride 1,000 mls @ 50 mls/hr 07/29/17 19:01 08/06/17 06:19 Normal Saline - IV 50 mls/hr ASDIR ROSETTE Administration Morphine Sulfate 15 mg 07/29/17 10:00 08/06/17 11:04 Msir - PO 15 mg DAILY ROSETTE Administration Prednisone 5 mg 07/29/17 10:00 08/06/17 11:04 Deltasone - GT 5 mg DAILY ROSETTE Administration Ranitidine HCl 150 mg 07/29/17 10:00 08/06/17 11:04 Zantac Oral Solution - GT 150 mg DAILY ROSETTE Administration Senna 2 tab 07/29/17 10:00 08/06/17 11:05 Senna - PO 2 tab DAILY ROSETTE Administration Trazodone HCl 100 mg 07/28/17 22:00 08/05/17 23:15 Desyrel - PO 100 mg HS ROSETTE Administration ASSESSMENT/PLAN: 82yo M with PMH of chronic respiratory failure 2/2 emphysema, s/p recent trach and chronic vent x 2 weeks, presented s/p a fall from the bed, found to be septic with a small pneumothorax and pneumomediastinum. # sepsis - likely 2/2 a pulmonary source, possibly vent-associated pna - resolved - leukocytosis - ID (Dr Culp) recs appreciated: if leukocytosis persists , get CXR and cultures - monitor off antibiotics - IVFs - continue vent with PEEP setting of 0 - spontaneous breathing trials as tolerated - pain management with Morphine daily # chronic respiratory failure - continue vent - continue Duoneb and Prednisone - Pulmonary (Dr. Pate) recs appreciated: pt is able to be weaned but will require a group home acute care facility # normocytic anemia - anemia of chronic disease - stable # FEN - Fluids: NS @ 50 ml/hr - Electrolytes: wnl, continue to monitor - Nutrition: Jevity 1.5 @ 20 ml/hr to goal of 35 ml/hr + 35 ml/hr free water # Prophylaxis - DVT ppx with Heparin TID - GI ppx with Zantac - deconditioning ppx with PT Visit type - Emergency Visit Emergency Visit: Yes ED Registration Date: 07/28/17 Care time: The patient presented to the Emergency Department on the above date and was hospitalized for further evaluation of their emergent condition. - New Patient This patient is new to me today: No - Critical Care Critical Care patient: No
[2017-08-06] MEDS ORDERED: traZODone HCL 50 MG TABLET (FP) ONE (22:12)
[2017-08-06] MEDS: DOCUSATE NA 100 MG/10 ML UNIT-DOSE CUPS GT SCH (22:18)
[2017-08-06] MEDS: traZODone HCL 100 MG TABLET (FP) PO SCH (22:19)
[2017-08-07] MEDS: SODIUM CHLORIDE 1,000 ML IV SCH ×2 (04:00→21:40)
[2017-08-07] MEDS: HEPARIN NA (PORCINE) 5,000 UNITS/ML 1ML VIAL SQ SCH ×3 (05:54→22:03)
[2017-08-07] MEDS: ALBUTEROL SO4 2.5/IPRATROPIUM 0.5 INH SOL 3 ML VIAL.NEB. NEB SCH ×5 (06:00→23:31)
[2017-08-07 08:36] LABS: MCH 30.6 pg (25.7-33.7); MCHC 32.3 g/dl (32.0-35.9); MEAN CELL VOLUME 94.6 fl (80-96); MEAN PLT VOLUME 6.9 fl (7.5-11.1); PLATELET COUNT 579 K/MM3 (134-434); RDW 13.6 % (11.9-15.9); WHITE BLOOD COUNT 14.1 K/mm3 (4.0-10.0)
[2017-08-07] MEDS: morphine SULFATE IMMEDIATE RELEASE 30 MG TAB PO SCH (10:47)
[2017-08-07] MEDS: predniSONE 5 MG TABLET (UD) GT SCH (10:49)
[2017-08-07] MEDS: SENNOSIDES 8.6MG TABLET (FP) PO SCH (10:49)
[2017-08-07] MEDS: RANITIDINE HCL 150 MG/10 ML UNIT-DOSE GT SCH (10:50)
[2017-08-07] MEDS: BACITRACIN 15 GM TUBE TOPICAL OINTMENT TP SCH (10:51)
--- NOTE | 2017-08-07 13:31 | PN ---
Progress Note (short form) - Note Progress Note: PULMONARY VSS/AFEBRILE Gen: vented, arousable Heart: RRR Lung: scattered rhonchi Abd: soft, nontender Ext: no edema LABS/MEDS/NOTES/IMAGES/MICRO REVIEWED Active Medications Albuterol/Ipratropium (Duoneb -) 1 amp NEB QIDR [facility] Last Admin: 08/05/17 11:14 Dose: 1 amp Bacitracin (Bacitracin -) 1 applic TP DAILY [facility] Last Admin: 08/05/17 10:34 Dose: 1 applic Docusate Sodium (Colace Liquid -) 300 mg GT HS [facility] Last Admin: 08/04/17 22:29 Dose: 300 mg Heparin Sodium (Porcine) (Heparin -) 5,000 unit SQ TID [facility] Last Admin: 08/05/17 13:43 Dose: 5,000 unit Piperacillin Sod/Tazobactam (Sod 3.375 gm/ Dextrose) 50 mls @ 100 mls/hr IVPB Q8H-IV [facility] Last Admin: 08/05/17 11:01 Dose: 100 mls/hr Sodium Chloride (Normal Saline -) 1,000 mls @ 50 mls/hr IV ASDIR [facility] Last Admin: 08/05/17 13:42 Dose: 50 mls/hr Morphine Sulfate (Msir -) 15 mg PO DAILY [facility] Last Admin: 08/05/17 10:32 Dose: 15 mg Prednisone (Deltasone -) 5 mg GT DAILY [facility] Last Admin: 08/05/17 10:32 Dose: 5 mg Ranitidine HCl (Zantac Oral Solution -) 150 mg GT DAILY [facility] Last Admin: 08/05/17 10:32 Dose: 150 mg Senna (Senna -) 2 tab PO DAILY [facility] Last Admin: 08/05/17 10:35 Dose: Not Given Trazodone HCl (Desyrel -) 100 mg PO HS [facility] Last Admin: 08/04/17 22:29 Dose: 100 mg A/P Acute on Chronic Respiratory Failure Loculated Pneumothorax resolved Pneumomediastinum resolved Interstitial Lung Disease S/P Pnuemonia Acute Kidney Injury - pain control - keep PEEP 0 - complete empiric antibiotics - suspect majority of findings on CT chest are chronic - inhaled bronchodilators - O2 to keep SpO2 >90% - monitor urine output, creatinine - enteral feeds - spontaneous breathing trials as tolerated - DVT/GI prophylaxis - patient is able to be weaned but will require a exterminator termite acute care facility. Patient requires prolonged skilled care that could only be provided in a assisted care acute hospital in order to: patient would benefit from admission to LTAC in order to fully demonstrate self care regarding his trach stoma and dressing changes. This type of supervision could only be provided in an acute setting as the patient has demonstrated impulsiveity at times. Patient must be assessed by 24 hour ongoing shelter in an acute care setting to facilitate proper suction technique; patient must be able to demonstrate independence in clearing his tracheostomy should it clog; patient must be able to demonstrate proper use of TEP once trach is removed. TEP unable to be utilized at this time. Chelsy KOCH MD
--- NOTE | 2017-08-07 17:27 | PN ---
Teaching Attending Note Name of Resident: Paula Herron ATTENDING PHYSICIAN STATEMENT I saw and evaluated the patient. I reviewed the resident's note and discussed the case with the resident. I agree with the resident's findings and plan as documented. SUBJECTIVE: No fever or chills . has no pain . no events over night OBJECTIVE: Awake, alert , responsive , tries to talk. MMM No facial droop CV: RRR, no MRG, No JVD Lungs: b/l course rales . ABd: soft, NT, ND , PEG in , NL BS Ext: no edema ASSESSMENT AND PLAN: 82 y/o unfortunate man with h/o Chronic resp failure due to emphysema and reported interstitial lung disease, s/p recent trach and chronic vent 2 weeks prior to presentation, also h/o of TB treated in [facility] , as well as chronic pain and GERD who was brought from [place] after a fall from the bed . He was found to be septic with a small pneumothorax and pneumo-mediastinum 1- Sepsis: likely form PNA , treated and resolved - monitor off ABx. - leukocytosis has improved , on chronic steroids . No diarrhea 2- CHANTE: prerenal azotemia form volume depletion - improved with IVF 3- AMS: due to sepsis and volume depletion - back to base line. 4- Small R pneumothorax, and pneumomediastinum: likely due to severe bolus disease and ruptured bulla spontaneously . stable pneuo not seen on last cxray 5- anemia of chronic disease 6- chronic resp failure : - cont vent - cont Nebs - cont chronic steroids Dispo : [facility] Medically ready for dc . pending placement at LTAC
[2017-08-07] MEDS: AMINO ACIDS/PROTEIN HYDROLYS 30 ML LIQUID.PKT PO SCH (18:17)
--- NOTE | 2017-08-07 19:45 | PN ---
Physical Exam: SUBJECTIVE: Patient seen and examined. Pt intubated, resting comfortably. Pt denies pain. No fever, chills, diarrhea. No events overnight. OBJECTIVE: Vital Signs Period Temp Pulse Resp BP Sys/Fatima Pulse Ox Last 24 Hr 97.8 F-98.4 F 81-90 18-33 115-138/55-65 97-100 GENERAL: The patient is intubated, comfortable, not sedated. Pt is alert and oriented. NECK: wearing soft neck collar. Trach in place. LUNGS: scattered rhonchi. No accessory muscle use. HEART: Regular rate and rhythm, +S1/S2. ABDOMEN: Soft, nondistended, no masses. EXTREMITIES: Warm, well-perfused, no edema. SKIN: 2 facial lacerations healed, to forehead and nose. Laboratory Results - last 24 hr 08/07/17 07:40 WBC 14.1 H RBC 2.92 L Hgb 8.9 L Hct 27.6 L MCV 94.6 MCH 30.6 MCHC 32.3 RDW 13.6 Plt Count 579 H MPV 6.9 L Active Medications Generic Name Dose Route Start Last Admin Trade Name Freq PRN Reason Stop Dose Admin Acetaminophen 650 mg 08/05/17 19:50 08/05/17 20:22 Tylenol Oral Solution - GT 650 mg Q4H PRN Administration FEVER OR PAIN Albuterol/Ipratropium 1 amp 07/29/17 00:00 08/07/17 18:00 Duoneb - NEB 1 amp QIDR ROSETTE Administration Amino Acids 30 ml 08/07/17 17:30 08/07/17 18:17 Prosource No Carb Liquid Pkt PO 30 ml BID@0800,1730 ROSETTE Administration Bacitracin 1 applic 07/29/17 10:00 08/07/17 10:51 Bacitracin - TP 1 applic DAILY ROSETTE Administration Docusate Sodium 300 mg 07/28/17 22:00 08/06/17 22:18 Colace Liquid - GT 300 mg HS ROSETTE Administration Heparin Sodium (Porcine) 5,000 unit 07/28/17 22:00 08/07/17 14:23 Heparin - SQ 5,000 unit TID ROSETTE Administration Sodium Chloride 1,000 mls @ 50 mls/hr 07/29/17 19:01 08/07/17 04:00 Normal Saline - IV 50 mls/hr ASDIR ROSETTE Administration Morphine Sulfate 15 mg 07/29/17 10:00 08/07/17 10:47 Msir - PO 15 mg DAILY ROSETTE Administration Prednisone 5 mg 07/29/17 10:00 08/07/17 10:49 Deltasone - GT 5 mg DAILY ROSETTE Administration Ranitidine HCl 150 mg 07/29/17 10:00 08/07/17 10:50 Zantac Oral Solution - GT 150 mg DAILY ROSETTE Administration Senna 2 tab 07/29/17 10:00 08/07/17 10:49 Senna - PO 2 tab DAILY ROSETTE Administration Trazodone HCl 100 mg 07/28/17 22:00 08/06/17 22:19 Desyrel - PO 100 mg HS ROSETTE Administration ASSESSMENT/PLAN: 82yo M with PMH of chronic respiratory failure 2/2 emphysema, s/p recent trach and chronic vent x 2 weeks, presented s/p a fall from the bed, found to be septic with a small pneumothorax and pneumomediastinum. # sepsis - likely 2/2 a pulmonary source, possibly vent-associated pna - resolved - leukocytosis - trending down - monitor off antibiotics - IVFs - continue vent with PEEP setting of 0 - spontaneous breathing trials as tolerated - pain management with Morphine daily # chronic respiratory failure - continue vent - continue Duoneb and Prednisone - Pulmonary (Dr. Pate) recs appreciated: pt is able to be weaned but will require a [facility] acute care facility # normocytic anemia - anemia of chronic disease - stable # FEN - Fluids: NS @ 50 ml/hr - Electrolytes: wnl, continue to monitor - Nutrition: Jevity 1.5 goal of 50 ml/hr + 35 ml/hr free water + Prosource 30ml BID # Prophylaxis - DVT ppx with Heparin TID - GI ppx with Zantac - deconditioning ppx with PT # dispo - pt medically clear for discharge, pending placement in LTAC Visit type - Emergency Visit Emergency Visit: Yes ED Registration Date: 07/28/17 Care time: The patient presented to the Emergency Department on the above date and was hospitalized for further evaluation of their emergent condition. - New Patient This patient is new to me today: No - Critical Care Critical Care patient: No
[2017-08-07] MEDS ORDERED: traZODone HCL 50 MG TABLET (FP) ONE (21:43)
[2017-08-07] MEDS: DOCUSATE NA 100 MG/10 ML UNIT-DOSE CUPS GT SCH (22:03)
[2017-08-07] MEDS: traZODone HCL 100 MG TABLET (FP) PO SCH (22:03)
[2017-08-08] MEDS: HEPARIN NA (PORCINE) 5,000 UNITS/ML 1ML VIAL SQ SCH ×2 (05:39→14:16)
[2017-08-08] MEDS: ALBUTEROL SO4 2.5/IPRATROPIUM 0.5 INH SOL 3 ML VIAL.NEB. NEB SCH ×2 (06:39→11:42)
[2017-08-08 07:44] LABS: MCH 30.9 pg (25.7-33.7); MCHC 32.7 g/dl (32.0-35.9); MEAN CELL VOLUME 94.7 fl (80-96); MEAN PLT VOLUME 6.7 fl (7.5-11.1); PLATELET COUNT 536 K/MM3 (134-434); RDW 13.9 % (11.9-15.9); WHITE BLOOD COUNT 13.6 K/mm3 (4.0-10.0)
[2017-08-08] MEDS: AMINO ACIDS/PROTEIN HYDROLYS 30 ML LIQUID.PKT PO SCH ×2 (08:29→17:26)
[2017-08-08] MEDS ORDERED: PT OWN MED DRAWER 7, Y5N ONE (11:15)
[2017-08-08] MEDS: morphine SULFATE IMMEDIATE RELEASE 30 MG TAB PO SCH (11:16)
[2017-08-08] MEDS: predniSONE 5 MG TABLET (UD) GT SCH (11:17)
[2017-08-08] MEDS: SENNOSIDES 8.6MG TABLET (FP) PO SCH (11:17)
[2017-08-08] MEDS: RANITIDINE HCL 150 MG/10 ML UNIT-DOSE GT SCH (11:18)
[2017-08-08] MEDS: BACITRACIN 15 GM TUBE TOPICAL OINTMENT TP SCH (11:19)
--- NOTE | 2017-08-08 14:00 | PN ---
Progress Note (short form) - Note Progress Note: PULMONARY VSS/AFEBRILE Gen: vented, arousable Heart: RRR Lung: scattered rhonchi Abd: soft, nontender Ext: no edema LABS/MEDS/NOTES/IMAGES/MICRO REVIEWED A/P Acute on Chronic Respiratory Failure Loculated Pneumothorax resolved Pneumomediastinum resolved Interstitial Lung Disease S/P Pnuemonia Acute Kidney Injury - pain control - keep PEEP 0 - complete empiric antibiotics - suspect majority of findings on CT chest are chronic - inhaled bronchodilators - O2 to keep SpO2 >90% - monitor urine output, creatinine - enteral feeds - spontaneous breathing trials as tolerated - DVT/GI prophylaxis - patient is able to be weaned but will require a termite technician acute care facility. Patient requires prolonged skilled care that could only be provided in a termite technician care acute hospital in order to: patient would benefit from admission to LTAC in order to fully demonstrate self care regarding his trach stoma and dressing changes. This type of supervision could only be provided in an acute setting as the patient has demonstrated impulsiveity at times. Patient must be assessed by 24 hour ongoing custodial in an acute care setting to facilitate proper suction technique; patient must be able to demonstrate independence in clearing his tracheostomy should it clog; patient must be able to demonstrate proper use of TEP once trach is removed. TEP unable to be utilized at this time. Chelsy KOCH MD
[2017-08-08] MEDS: SODIUM CHLORIDE 1,000 ML IV SCH (17:27)
--- NOTE | 2017-08-08 18:40 | PN ---
Teaching Attending Note Name of Resident: Paula Herron ATTENDING PHYSICIAN STATEMENT I saw and evaluated the patient. I reviewed the resident's note and discussed the case with the resident. I agree with the resident's findings and plan as documented. SUBJECTIVE: No events over night . denies pain OBJECTIVE: Awake, alert , responsive , tries to talk. MMM No facial droop CV: RRR, no MRG, No JVD Lungs: b/l course rales . ABd: soft, NT, ND , PEG in , NL BS Ext: no edema ASSESSMENT AND PLAN: 82 y/o unfortunate man with h/o Chronic resp failure due to emphysema and reported interstitial lung disease, s/p recent trach and chronic vent 2 weeks prior to presentation, also h/o of TB treated in [facility] , as well as chronic pain and GERD who was brought from [place] after a fall from the bed . He was found to be septic with a small pneumothorax and pneumo-mediastinum 1- Sepsis: likely form PNA, treated and resolved. - monitor off ABx. - leukocytosis has improved 2- CHANTE: prerenal azotemia form volume depletion - will dc IVF and recommend increasing rate of free water with TF to 40 cc/hr 3- AMS: due to sepsis and volume depletion - back to base line. 4- Small R pneumothorax, and pneumomediastinum: resolved 5- Anemia of chronic disease 6- Chronic resp failure : - cont vent - cont Nebs - cont chronic steroids DC to LTAC today
--- NOTE | 2017-08-08 19:09 | DS ---
Physical Exam: SUBJECTIVE: Patient seen and examined. Pt intubated, resting comfortably. Pt denies pain. No fever, chills, diarrhea. No events overnight. OBJECTIVE: Vital Signs Period Temp Pulse Resp BP Sys/Fatima Pulse Ox Last 24 Hr 98.3 F-99.4 F 78-85 17-29 113-128/60-75 100 PHYSICAL EXAM GENERAL: The patient is intubated, comfortable, not sedated. Pt is alert and oriented. NECK: wearing soft neck collar. Trach in place. No JVD. LUNGS: bhavik coarse rales. No accessory muscle use. HEART: Regular rate and rhythm, +S1/S2. ABDOMEN: Soft, nontender, nondistended, no masses. G-tube in place. EXTREMITIES: Warm, well-perfused, no edema. SKIN: 2 facial lacerations healed, to forehead and nose. LABS Laboratory Results - last 24 hr 08/08/17 07:15 WBC 13.6 H RBC 2.81 L Hgb 8.7 L Hct 26.7 L MCV 94.7 MCH 30.9 MCHC 32.7 RDW 13.9 Plt Count 536 H MPV 6.7 L HOSPITAL COURSE: Date of Admission:07/28/17 Date of Discharge: 08/08/17 82yo M with PMH of chronic respiratory failure 2/2 emphysema, s/p recent trach and chronic vent x 2 weeks, presented s/p a fall from the bed, found to be septic with a small pneumothorax and pneumomediastinum. Pt treated with full course of IV antibiotics for pneumonia. Ventilator, duonebs and steroids maintained for pt's chronic respiratory failure. 07/28/[address] -> no acute bony abnormalities. Pneumomediastinum. Right-sided pneumothorax. 07/28/[address] -> no evidence of acute intracranial hemorrhage, edema, midline shift, mass effect, skull fracture, acute territorial ischemic changes. 07/28/17 5am CXR -> acute and chronic lung changes with bullous findings, interstial and alveolar changes and small Right-sided pneumothorax. [id number] -> small Right sided PTX, extensive pneumomediastinum - most prominently surrounding the distal esophagus. No pleural effusions. No acute rib fractures. Extensive fibrotic changes throughout both lungs with basal predominant honeycombing. Dilated main pulmonary artery, suggestive of pulmonary arterial htn. 07/28/17 Renal US -> morphologically normal kidneys without evidence of hydronephrosis or acute pathology. 07/28/17 5pm CXR -> persistent small Right-sided PTX. 07/29/17 CXR -> peripheral Right-sided PTX. Little change since prior study. 07/30/17 CXR -> no PTX or pneumomediastinum. 07/28/17 blood cultures (-) x 5 days 07/28/17 urine culture (-) 07/28/17 legionella (-) 07/28/17 strep pneumoniae antigen (-) 07/29/17 RSV (-) 07/29/17 Influenza A&B (-) 07/30/17 sputum culture (+) Escherichia Coli Esbl Pt medically stable for discharge to Long-Term Acute Care facility. Minutes to complete discharge: 55 Discharge Summary Reason For Visit: FALL FROM BED, PNEUMOTHORAX, CHEST WALL PAIN, Current Active Problems Fall from bed (Acute) Head injury (Acute) Pneumonia (Acute) Sepsis (Acute) Ventilator barotrauma (Acute) Chronic respiratory failure (Chronic) Interstitial lung disease (Chronic) Condition: Improved - Instructions Diet, Activity, Other Instructions: You were evaluated at [facility] after a fall and treated for pneumonia with IV antibiotics, zosyn q8hr on 07/29-08/05/2017. Please resume your home medications as prescribed and current trach care. Weaning trials off ventilator as tolerated. Please follow-up with your Primary Care Doctor (Dr. Pate) in 1 week. Please return to the hospital immediately if you experience another fall, difficulty breathing, or for any medical emergency. tube feeding with Jevity at 50 cc /hr x 24 hr. with free water of 40 cc/hr continuous Referrals: Larry Pate MD [Primary Care Provider] - [facility] - Home Medications Comprehensive Discharge Medication List: Ambulatory Orders Chlorhexidine Gluconate 15 ml MM BID 07/28/17 Docusate Liquid [Colace Liquid -] 300 mg GT HS 07/28/17 Famotidine [Pepcid -] 20 mg GT AM 07/28/17 Hypromellose 0.5% Opth Soln [Artificial Tears] 1 drop OU Q6H 07/28/17 Ipratropium 0.02% Nebulizer [Atrovent 0.02% Nebulizer -] 1 neb NEB Q6H 07/28/17 Prednisone 5 mg GT DAILY 07/28/17 Sennosides [Senna] 17.2 mg GT DAILY 07/28/17 Trazodone HCl 100 mg GT HS 07/28/17 Amino Acids/Protein Hydrolys [Prosource No Carb Liquid Pkt] 30 ml PO BID@0800, 1730 packet 08/08/17 Morphine *Immediate Release* [Msir -] 15 mg GT DAILY #30 tab MDD 1 08/08/17 This patient is new to me today: No Emergency Visit: Yes ED Registration Date: 07/28/17 Care time: The patient presented to the Emergency Department on the above date and was hospitalized for further evaluation of their emergent condition. Critical Care patient: No - Discharge Referral Referred to [facility] No
[2017-08-08 20:16] VITALS: BP 110/60; PULSE 78; TEMP 97.6
== END 2017-08-08 21:47 | DRG 720 ==
LOC: JER 03:35 → JERBED 06:01 → JICU 08:36 → J5S 21:24
PROVIDERS: ADMIT Internal Medicine; ATTEND Internal Medicine
PROC: 5A1955Z Respiratory Ventilation, Greater than 96 Consecutive Hours (ICD-10-PCS; principal; 2017-07-28)
PROC: 3E0G76Z Introduction of Nutritional Substance into Upper GI, Via Natural or Artificial Opening (ICD-10-PCS; 2017-07-28)
DX: A41.9 Sepsis, unspecified organism (principal); J96.20 Acute and chronic respiratory failure, unspecified whether with hypoxia or hypercapnia; J44.9 Chronic obstructive pulmonary disease, unspecified; J98.2 Interstitial emphysema; S27.0XXA Traumatic pneumothorax, initial encounter; Z93.0 Tracheostomy status; J95.851 Ventilator associated pneumonia; N17.9 Acute kidney failure, unspecified; E86.9 Volume depletion, unspecified; Z93.1 Gastrostomy status; S80.01XA Contusion of right knee, initial encounter; K21.9 Gastro-esophageal reflux disease without esophagitis; D63.8 Anemia in other chronic diseases classified elsewhere; D47.3 Essential (hemorrhagic) thrombocythemia; G89.29 Other chronic pain; G47.00 Insomnia, unspecified; F32.9 Major depressive disorder, single episode, unspecified; K59.03 Drug induced constipation; T40.2X5A Adverse effect of other opioids, initial encounter; S01.81XA Laceration without foreign body of other part of head, initial encounter; S01.21XA Laceration without foreign body of nose, initial encounter; Z86.11 Personal history of tuberculosis; W06.XXXA Fall from bed, initial encounter; Y99.8 Other external cause status; Y93.89 Activity, other specified; Y92.122 Bedroom in nursing home as the place of occurrence of the external cause; Y83.8 Other surgical procedures as the cause of abnormal reaction of the patient, or of later complication, without mention of misadventure at the time of the procedure
CPT/HCPCS: 36415; 70450-TC; 71010-TC; 71250-TC; 72125-TC; 76775-TC; 80048; 80053; 80061; 81003; 81015; 82436; 82570; 82607; 82728; 82746; 83036; 83540; 83550; 83605; 83721; 83735; 84100; 84133; 84300; 84466; 85025; 85027; 85610; 86738; 86850; 86900; 86901; 87040; 87070; 87086; 87186; 87205; 87254; 87389; 87420; 87804; 87899; 90670; 93005; 93010; 93306-TC; 94002; 94640; 97161-GP; 99285-25; J1644